=== PATIENT | male | born 1950 | race Caucasian/White ===

== ENCOUNTER 2019-10-12 09:47 | Outpatient (CLI) | payer OTHER, SELFPAY ==
--- NOTE | 2019-10-12 09:53 | CT_ITS ---
WS: [id number] CT CHEST TECHNIQUE: Contrast enhanced CT of the chest with coronal and sagittal reformatted images. CLINICAL INFORMATION: DENSITY COMPARISON: CT chest 10 18,016 DLP: 1077.[address] scans at [facility] use at least one of these dose optimization techniques: automat ed exposure control; mA and/or kV adjustment per patient size (includes targeted exams where dose is matched to clinical indication); or iterative reconstruction. FINDINGS: New subpleural spiculated nodule in the right lower lobe medially abutting the inferior hilum measure s approximately 2.9 x 2.3 cm suspicious for neoplasm. This is new from previous. Additional adjacent Noncalcified nodules measuring 9 mm and 6 mm. Again seen is the noncalcified nodule right upper lobe anteriorly slightly larger today measuring 8.9 mm compared to 6.6 mm previous. Additional hazy groundglass nodule in the right lower lobe laterally measuring 6 mm with additional n oncalcified subpleural nodule measuring 4 mm. Subpleural nodularity in the right lower lobe. Prominent new right hilar and superior mediastinal lymphadenopathy. Multiple enlarged anterior medias tinal, AP window, right greater than left hilar, and subcarinal lymph nodes. Largest lymph nodes ilia ure up to 3.1 cm. Right renal cysts. Low-attenuation lobulated lesion pancreatic tail measuring 2.8 cm appears unchange d since 2016 suspicious for IPMN. This can be followed up with CT abdomen pelvis. Mild pancreatic david socorro dilatation partially visualized. 8mm focal lytic lesion in the T11 vertebral body is new since 2016. Metastatic disease not excluded. Findings can be further evaluated with PET/CT. Schmorl's nodes in the mid thoracic spine. Notified Cecile SOLORZANO at Dr. Steinberg's office 10/12/2019 11:[address]/CT chest w con* [id number] IMPRESSION: 1. 2.3 x 2.9 cm right lower lobe medial subpleural spiculated mass most consis tent with neoplasm. This abuts the inferior hilum and is new since 2016. Recomm end further evaluation with PET/CT and bronchoscopy. This is not easily amenabl e to CT-guided biopsy. 2. Additional adjacent surrounding noncalcified satellite nodules measuring 6 to 9 mm. 3. Extensive anterior mediastinal, right hilar, subcarinal, and AP window lymp hadenopathy measuring up to 3.1 cm most consistent with metastatic disease. 4. Lytic lesion in the T11 vertebral body measuring 8 mm is new since 2016. Me tastatic disease not excluded. This can be further evaluated PET/CT. 5. Noncalcified nodule in the right upper lobe is increased in size since 2016 measuring 8.9 mm compared to 6.6 mm previous. 6. Advanced chronic emphysematous changes are similar. 7. Low-attenuation lobulated lesion involving the pancreatic tail with pancrea tic ductal dilatation measuring 2.8 cm. This was present in [address]. This can be further evaluated with CT abdomen pelvis. Findings most likel y representing IPMN 8. Enlarged periesophageal lymph node at the GE junction measuring 16 mm.
[2019-10-12] MEDS: iohexol 300 mg/mL 100 mL Btl IV (10:08)
== END 2019-10-12 09:48 | disposition home or self-care (01) ==
LOC: RADWPI 09:53
PROVIDERS: Family Provider Internal Medicine; PCP Internal Medicine; Visit Provider Nurse Practitioner
DX: J43.9 Emphysema, unspecified (principal); R91.8 Other nonspecific abnormal finding of lung field; K86.9 Disease of pancreas, unspecified; G95.89 Other specified diseases of spinal cord
CPT/HCPCS: 71260; Q9967

== ENCOUNTER 2019-10-27 08:34 | Day surgery (SDC) | payer MEDICARE, OTHER, SELFPAY ==
[2019-10-19 11:12] VITALS: BMI 30.1
[2019-10-27] VITALS (12 sets, daily range): BP systolic 120–172; BP diastolic 72–97; PULSE 98–117; RESP 13–25; TEMP 36.6–36.7; O2SAT 90–98
--- NOTE | 2019-10-27 09:27 | ANES.PREANE2 ---
Pre-Anesthetic Assessment Pre-Anesthetic Assessment: Height/Weight: Height 1.8 m Weight 97.976 kg Preop Diagnosis: Lung mass Proposed Procedure: Operation Date: 10/27/19 10:00 Proposed Procedures p Ebus/Brocoscopy(Not Applicable) - Laine Ruiz MD Last intake: Intake Last Liquid Date 10/26/19 Last Liquid Time 05:00 Last Solid Date 10/26/19 Last Solid Time 18:00 Social: Packs per day: 1.5 Pack years: 50 Comment: quit ' Exam: Pre-Anes Outpt Exam: alert, oriented x 3, clear to auscultation bilaterally and regular rate & rhythm Airway: Submandibular: WNL Cervical ROM: WNL MP: 2 Dentition: False Pulmonary: Pulmonary: COPD CV/HEM: CV/HEM: HTN Comments: x15 years stress test ' less than 1/2 blocks due to DAVISON for 3 weeks : Comments: BPH Musc/skel: Musc/skel: Lower Back Pain Anesthetic Plan: ASA status: 3 Anesthesia: General PFSH Anesthesia PFSH: Medical History (Updated 10/17/19 @ 15:19 by Laine Ruiz MD) BPH with obstruction/lower urinary tract symptoms (Acute) Chronic obstructive pulmonary disease with (acute) exacerbation (Acute) Essential (primary) hypertension (Acute) Keratoacanthoma (Acute) Lumbar paraspinal muscle spasm (Acute) Panlobular emphysema (Acute) Rheumatoid arthritis, seropositive, multiple sites (Acute) 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 (Acute) Thyroid with heterogeneous echotexture determined by ultrasound (Acute) Surgical History (Updated 10/17/19 @ 15:19 by Laine Ruiz MD) S/P cholecystectomy (Acute) S/P colonoscopy (Acute) 2017- REPEAT IN 10 YEARS S/P endoscopic carpal tunnel release (Acute) S/P eye surgery (Acute) S/P shoulder surgery (Acute) Status post right knee replacement (Acute) Social History Smoking and tobacco status: former smoker Quit status (tobacco): has quit using tobacco Year quit tobacco: 1999 - 2PPD x 30 Years Second hand smoke exposure: No Alcohol intake: former Year of sobriety/quit date alcohol: 1999 Former alcohol use details: HEAVY Household members: spouse Housing: House Marital status: service: Yes Current occupational status: retired Current gender identity: Male Data Anesthesia Cardiac Studies: No Data to Display
[2019-10-27] MEDS: sodium chloride 0.9% 1,000 ML 30 ML IV (09:43)
--- NOTE | 2019-10-27 10:14 | PM.HPUD ---
H&P update H&P Update: DATE OF SURGERY/PROCEDURE: 10/27/19 DATE H&P PERFORMED: 10/17/19 PREOP DIAGNOSIS: Lung mass PLANNED PROCEDURE: Operation Date: 10/27/19 10:00 Proposed Procedures p Ebus/Brocoscopy(Not Applicable) - Laine Ruiz MD Full H&P HPI: HPI: Bronchoscopy and endobronchial ultrasound-guided transbronchial needle aspiration of lymph nodes. Medications/Allergies: Current Medications: Current Medications Generic Name Dose Route Start Last Admin Trade Name Freq PRN Reason Stop Dose Admin Sodium Chloride 1,000 mls @ 30 ml s/hr 10/27/19 09:15 10/27/19 09:43 Sodium Chloride 0.9% IV 10/28/19 09:14 30 mls/hr .Q24H GABBIE Administration Perinent History: Medical/Surgical History: Medical History (Updated 10/17/19 @ 15:19 by Laine Ruiz MD) BPH with obstruction/lower urinary tract symptoms (Acute) Chronic obstructive pulmonary disease with (acute) exacerbation (Acute) Essential (primary) hypertension (Acute) Keratoacanthoma (Acute) Lumbar paraspinal muscle spasm (Acute) Panlobular emphysema (Acute) Rheumatoid arthritis, seropositive, multiple sites (Acute) 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 (Acute) Thyroid with heterogeneous echotexture determined by ultrasound (Acute) Family History: Family History (Updated 09/25/19 @ 09:53 by Grecia Cortez LPN) Other Aneurysm Arthritis CAD (coronary artery disease) Diabetes Hypertension Social History: Social History Smoking and tobacco status: former smoker Quit status (tobacco): has quit using tobacco Year quit tobacco: 1999 - 2PPD x 30 Years Second hand smoke exposure: No Alcohol intake: former Year of sobriety/quit date alcohol: 1999 Former alcohol use details: HEAVY Household members: spouse Housing: House Marital status: service: Yes Current occupational status: retired Current gender identity: Male A&P Assessment and plan (1) Right lower lobe lung mass: The patient most likely has metastatic lung cancer. He is undergoing bronchoscopy evaluation for tissue diagnosis. There is no significant change since he was last seen in the office. Status: Acute Code(s): R91.8 - Other nonspecific abnormal finding of lung field
[2019-10-27] MEDS: lidocaine 1% INJ 20 mL XX (10:35)
--- NOTE | 2019-10-27 11:12 | PM.OP ---
Operative Report Date of procedure: October 27, 2019 Pre-op Diagnosis: Lung mass Brief History: This is a gentleman with right lower lobe lung mass with diffuse mediastinal hilar lymphadenopathy. Patient is coming in for bronchoscopy and endobronchial ultrasound-guided transbronchial needle aspiration of lymph nodes. Suspicion is for primary lung malignancy. Procedure: Name of the procedure: Bronchoscopy with inspection of the airway, bronchoalveolar lavage, endobronchial ultrasound-guided transbronchial needle aspiration of lymph nodes and control of bleeding. Indication: Right lower lobe lung mass with diffuse mediastinal hilar lymphadenopathy Anesthesia: General anesthesia. Local anesthesia: The toribio in the right and left mainstem bronchi were anesthetized with 1% lidocaine, 3 mL. Description of the procedure: The procedure was explained to the patient and the consent was obtained. The patient was brought to the OR. The patient underwent endotracheal intubation for general anesthesia. Following induction of general anesthesia, the bronchoscope was advanced through the ET tube. The lower trachea appeared to be mildly erythematous, no endotracheal lesion was seen. The toribio was splayed. The toribio, the right and left mainstem bronchi are anesthetized with 1% lidocaine. In a systematic manner bilateral bronchial tree was then examined. The bronchoscope was advanced into the left mainstem bronchus. The left upper lobe, lingula and left lower lobe bronchi were examined up to the third subsegmental level and no abnormalities were identified. There is no endobronchial lesion, active bleeding or mucous plug. The bronchoscope was then introduced into the right mainstem bronchus. The right upper lobe, right middle lobe and right lower lobe bronchi were examined up to the third subsegmental level and no abnormalities were identified. There was airway erythema throughout the lung. Bronchoalveolar lavage was performed from the medial segment of the right lower lobe. 60 mL of saline was instilled, fluid return was 10 mL. The fluid was cloudy. The endobronchial ultrasound was introduced through the ET tube. Mediastinal and hilar lymphadenopathy was identified with the ultrasound. The cortex and Medulla could not be differentiated. Transbronchial needle aspiration was performed from 4R, 7 lymph nodes. Samples: 1. Bronchoalveolar lavage specimen was sent for cytology 2. The transbronchial needle aspiration of the aforementioned lymph node groups were sent for cytology. Complications: There was no immediate complications. The patient was extubated and brought to the PACU in stable condition. Follow-up The patient will follow-up with me in 2 weeks time. I will refer him to oncology once I have the diagnosis available.
--- NOTE | 2019-10-27 11:15 | SUR.PHASEI ---
1112 PATIENT TO PACU AT THIS TIME FROM OR. COUGHING NOTED. RR EVEN AND UNLABORED. UNABLE TO PLACE PATIENT ON SIMPLE MASK, PATIENT NOT TOLERATING. PLACED ON 4L NC, SPO2 92%.
[2019-10-27] MEDS: ipratropium 0.5 mg/2.5 mL Neb INHALATION (11:22)
--- NOTE | 2019-10-27 11:30 | SUR.OPER ---
balloon from EBUS scope removed intact
[2019-10-27] MEDS: morphine 4 mg/mL SDV 1 mL 2 MG IVP ×2 (11:32→11:39)
--- NOTE | 2019-10-27 11:56 | SUR.PHASEI ---
1152 PATIENT TO OPS. PATIENT CONTINUE TO COUGH, MUCH IMPROVED. TOLERATING ICE CHIPS WELL. SPO2 95-96% ON 2L NC. PATIENT DENIES PAIN.
--- NOTE | 2019-10-27 11:57 | SUR.PHASEI ---
1152 ANESTHESIA AWARE OF LAST DOSE OF MORPHINE.
== END 2019-10-27 12:45 | disposition home or self-care (01) ==
PROVIDERS: Family Provider Internal Medicine; PCP Internal Medicine; Visit Provider Internal Medicine Critical Care Medicine
PROC: BB4BZZZ Ultrasonography of Pleura (ICD-10-PCS; CPT 31624; principal; 2019-10-27 10:00)
DX: R91.8 Other nonspecific abnormal finding of lung field (principal); J44.9 Chronic obstructive pulmonary disease, unspecified; I10 Essential (primary) hypertension; N40.1 Benign prostatic hyperplasia with lower urinary tract symptoms; N13.8 Other obstructive and reflux uropathy; M05.9 Rheumatoid arthritis with rheumatoid factor, unspecified; Z87.891 Personal history of nicotine dependence; R59.1 Generalized enlarged lymph nodes
CPT/HCPCS: 31624; 12345; 88112; 88305; 88341; 88342; J2001; J2270; J2405; J2704; J2710; J3010; J3490; J7030; J7611; J7644

== ENCOUNTER 2019-11-11 06:42 | Emergency (ER) | payer MEDICARE, OTHER, SELFPAY ==
[2019-11-11 06:50] VITALS: BP 138/87; PULSE 130; RESP 22; TEMP 36.9; O2SAT 92; BMI 29.2
--- NOTE | 2019-11-11 06:54 | ECG_ITS ---
Measurements Intervals [place] Rate: 117 P: 66 [place]: 130 QRS: 78 QRSD: 85 T: 57 QT: 292 QTc: 408 SINUS TACHYCARDIA POSSIBLE LEFT ATRIAL ENLARGEMENT [-0.1mV P WAVE IN V1/V2] Compared to ECG 09/21/2018 12:52:44 Sinus rhythm no longer present Electronically Signed On 11-11-2019 14:08:40 NUT GRADER by Julissa Somers M.D. [email or web address]
--- NOTE | 2019-11-11 06:54 | XR_ITS ---
WS: [id number] XR chest 1V portable [id number] REASON FOR EXAM: sob FINDINGS: Normal heart size again noted. The right hilum is full and there is infiltrates low-grade in both lung castillo. There is chronic emphysematous changes noted. The overall appearance the chest shows considerable change since August 18, 2019. XR/XR chest 1V portable [id number] IMPRESSION: Inflammatory changes both lung castillo suggesting early pneumonias. There is fullness seen now in the right hilum not observed on previous exam wit h congestion.
--- NOTE | 2019-11-11 07:03 | ED_ITS ---
Entered by Jed Maher, acting as scribe for HPI - SOB/Dyspnea General: Chief Complaint: Shortness of Breath/Dyspnea Stated Complaint: SOB Time Seen by Provider: 11/11/19 06:46 History of Present Illness: HPI Narrative: 69 yo male presents with shortness of breath. Pt states that he has had a productive cough for about 2 days, pt states that his sputum is white. Pt states that he was recently diagnosed with cancer. Pt denies fever. MD elicited complaint: shortness of breath Onset (ago): day(s) (2) Timing: constant Severity: moderate Exacerbating factors: movement Relieving factors: nothing Associated symptoms: Reports cough; Deny abdominal pain, chest pain, fever(s), nausea or vomiting Review of Systems Const: Denies: fever Eyes: Denies: blurry vision or eye discomfort ENMT: Denies: throat pain or dental pain Card: Denies: chest pain Resp: Reports: shortness of breath and productive cough GI: Denies: abdominal pain, nausea, vomiting or diarrhea : Denies: painful urination Musc: Denies: neck pain or back pain Skin/Breast: Denies: rash Neuro: Denies: headache Psych: Denies: depression Reginaldo/Lymph: Denies: easy bruising All/Imm: Denies: hives PFSH ED PFSH: Medical History BPH with obstruction/lower urinary tract symptoms Chronic obstructive pulmonary disease with (acute) exacerbation Essential (primary) hypertension Keratoacanthoma Lumbar paraspinal muscle spasm Panlobular emphysema Rheumatoid arthritis, seropositive, 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 Thyroid with heterogeneous echotexture determined by ultrasound Surgical History S/P cholecystectomy S/P colonoscopy 2017- REPEAT IN 10 YEARS S/P endoscopic carpal tunnel release S/P eye surgery S/P shoulder surgery Status post right knee replacement Social History Smoking and tobacco status: former smoker Quit status (tobacco): has quit using tobacco Year quit tobacco: 1999 - 2PPD x 30 Years Second hand smoke exposure: No Alcohol intake: former Year of sobriety/quit date alcohol: 1999 Former alcohol use details: HEAVY Household members: spouse Housing: House Marital status: service: Yes Current occupational status: retired History of recent travel: No Current gender identity: Male Physical Exam Const: COMMON NORMALS: no apparent distress, oriented x3 and healthy appearing HENMT: COMMON NORMALS: normocephalic and head/scalp atraumatic HEAD & SCALP: normocephalic and atraumatic Eye: COMMON NORMALS: PERRL and EOMs intact bilaterally PUPIL: Yes PERRL Neck/C-Spine: COMMON NORMALS: full ROM and supple Chest: COMMONS NORMALS: inspection of chest normal and palpation of chest normal Resp: COMMON NORMALS: normal respiratory effort, no retractions, no use of accessory muscles and clear to auscultation bilaterally AUSCULTATION: clear to auscultation bilaterally Cardio: COMMON NORMALS: regular rate, regular rhythm and no murmurs RATE: regular rate RHYTHM: regular rhythm GI: COMMON NORMALS: normal to inspection, nondistended, normoactive bowel sounds, soft to palpation, non-tender and no masses PALPATION: Yes soft Extremity: COMMON NORMALS: normal to inspection and full ROM Neuro: COMMON NORMALS: oriented x3, moves all extremities and no focal motor deficits Psych: COMMON NORMALS: mental status grossly normal, thought process normal and cooperative THOUGHT PROCESS: normal thought process Skin: COMMON NORMALS: no rashes or lesions noted and no wounds GENERAL SKIN EXAM: no rashes or lesions noted Course Vital Signs: Vital signs: Vital Signs Temperature 98.4 F 11/11/19 06:50 Pulse Rate 114 H 11/11/19 08:55 Respiratory Rate 22 H 11/11/19 08:55 Blood Pressure 98/58 11/11/19 08:55 Pulse Oximetry 88 L 11/11/19 08:55 MDM - SOB/Dyspnea MDM Narrative: Medical decision making narrative: Patient presents here with shortness of breath and pneumonia. I strongly recommended admission which he refused. Patient states he does not like hospitals and does not want to stay. Informed him he is requiring oxygen here and he could get much worse at home. Patient has medical decision-making capacity and understands the risks and signed out AMA. He has an appointment with Dr. Shannon and is to follow-up then. We will place him on doxycycline and if he changes his mind or gets worse he is to return. Lab Data: Labs: Lab Results 11/11/19 11/11/19 11/11/19 Range/Units 07:10 07:10 07:20 WBC 13.5 H (4.0-10.0) 10^3/ uL RBC 5.90 H (4.1-5.3) 10^6/u L Hgb 16.7 H (11.7-16.6) g/dL Hct 51.6 (42.0-52.0) % MCV 87.5 (80-94) fL MCH 28.3 (28.0-34.0) pg MCHC 32.4 (30.0-36.0) g/dL RDW 12.9 (12.1-15.1) % Plt Count 207 (130-400) 10^3/c mm MPV 9.6 (7.4-10.4) fL Neut % (Auto) 83.1 % Lymph % (Auto) 4.5 % [place] % (Auto) 10.7 % Eos % (Auto) 1.1 % Baso % (Auto) 0.2 % Neut # (Auto) 11.2 H (1.8-7.7) 10^3/u L Lymph # (Auto) 0.6 L (0.8-4.8) 10^3/u L [place] # (Auto) 1.4 H (0.2-0.9) 10^3/u L Eos # (Auto) 0.2 (0.0-0.8) 10^3/u L Baso # (Auto) 0.0 (0.0-0.1) 10^3/u L Nucleated RBC % (a uto) 0 % Nucleated RBCs # 0.0 /100WBC Sodium 133 L (136-145) mmol/L Potassium 3.9 (3.5-5.1) mmol/L Chloride 93 L (98-107) mmol/L Carbon Dioxide 25 (22-29) mmol/L Anion Gap 18.9 (5-19) BUN 19 (8-23) mg/dL Creatinine 1.3 H (0.7-1.2) mg/dL Glucose 223 H (65-115) mg/dL Calcium 11.4 H (8.5-10.5) mg/dL Total Bilirubin 0.8 (0.15-1.2) mg/dL AST 24 (0-40) U/L ALT 10 (0-41) U/L Alkaline Phosphata se 86 (40-130) IU/L NT-Pro-B Natriuret Pep 119 (0-125) pg/mL Total Protein 8.3 (6.6-8.7) g/dL Albumin 3.1 L (3.5-5.2) g/dL Globulin 5.2 H (1.3-4.6) g/dL Influenza Type A A g Negative (Negative) POC Influenza B Ag Negative (Negative) Imaging Data^: CXR: Radiologist's impression: Date of Service: 11/11/19 Procedure(s): XR chest 1V portable [id number] Accession Number(s): [id number] Report Number: [id number] WS: [id number] XR chest 1V portable [id number] REASON FOR EXAM: sob FINDINGS: Normal heart size again noted. The right hilum is full and there is infiltrates low-grade in both lung castillo. There is chronic emphysematous changes noted. The overall appearance the chest shows considerable change since August 18, 2019. XR/XR chest 1V portable [id number] IMPRESSION: Inflammatory changes both lung castillo suggesting early pneumonias. There is fullness seen now in the right hilum not observed on previous exam with congestion. EKG Data^: EKG 1: Attestation: I personally reviewed and interpreted this EKG as follows: EKG Interpretation Date: 11/11/19 EKG interpretation time: 07:28 Interpretation: sinus tach hr [address] or t wave abnormalities Discharge Plan Discharge Patient Disposition: Home, Self-Care Clinical Impression: Squamous cell lung cancer Qualifiers: Laterality: unspecified laterality Qualified Code(s): C34.90 - Malignant neoplasm of unspecified part of unspecified bronchus or lung Community acquired pneumonia Qualifiers: Laterality: unspecified laterality Qualified Code(s): J18.9 - Pneumonia, unspecified organism Condition: Stable Prescriptions: New doxycycline hyclate 100 mg tablet 100 mg PO BID 10 Days Qty: 20 RF: 0 No Action tamsulosin 0.4 mg capsule 0.4 mg PO QDAY RF: 0 finasteride 5 mg tablet 5 mg PO QDAY RF: 0 lisinopril 20 mg tablet 20 mg PO QDAY Qty: 90 RF: 3 hydrochlorothiazide 25 mg tablet 25 mg PO QAM RF: 0 Symbicort 160-4.5 mcg/actuation HFA aerosol inhaler 2 puff INHALATION BID RF: 0 cyclobenzaprine 10 mg tablet 10 mg PO TID RF: 0 hydrocodone-guaifenesin 2.5-200 mg/5 mL solution 5 - 10 ml PO Q6H PRN (Reason: cough) 30 Days Qty: 473 RF: 0 prednisone 20 mg tablet 20 mg PO DAILY PRN (Reason: shortness of breath) Qty: 30 RF: 0 Eliquis 5 mg Tablet 5 mg PO BID RF: 0 Flonase Allergy Relief 50 mcg/actuation [place],Suspension 1 spray INTRANASAL DAILY RF: 0 Spiriva Respimat 2.5 mcg/actuation Mist 2 inh INHALATION QAM RF: 0 losartan 100 mg Tablet 50 mg PO DAILY RF: 0 Discharge Orders: Discharge Order (Routine); Ordered 11/11/19 Ordered By: Kristen Adler Referrals: Jerome Steinberg MD [Primary Care Provider] - Discharge Diet: Advance as tolerated Discharge Activity: Resume usual activity Patient Instructions: Bacterial Pneumonia (ED) Stand Alone Forms: Against Medical Advice Discharge Date/Time: 11/11/19 08:57 Coding Level of Care Code ED Integrated Circuit Fabricator for Chg Fwd Exam Comprehensive The documentation recorded by the Gunnar johnson Kialy, accurately reflects the service I personally performed and the decisions made by Nayely blankenship Korby, MD Nov 11, 2019 06:42
[2019-11-11 07:13] VITALS: O2SAT 85
[2019-11-11 07:18] LABS: Basophils % 0.2 %; Eosinophils # 0.2 10^3/uL (0.0-0.8); Eosinophils % 1.1 %; Hematocrit 51.6 % (42.0-52.0); Hemoglobin 16.7 g/dL (11.7-16.6); Lymphocytes # 0.6 10^3/uL (0.8-4.8); Lymphocytes % 4.5 %; Mean Corpuscular HGB Conc 32.4 g/dL (30.0-36.0); Mean Corpuscular Hemoglobin 28.3 pg (28.0-34.0); Mean Corpuscular Volume 87.5 fL (80-94); Mean Platelet Volume 9.6 fL (7.4-10.4); Monocytes # 1.4 10^3/uL (0.2-0.9); Monocytes % 10.7 %; Neutrophils # 11.2 10^3/uL (1.8-7.7); Neutrophils % 83.1 %; Nucleated Red Blood Cells % 0 %; Platelet Count 207 10^3/cmm (130-400); Red Cell Distribution Width 12.9 % (12.1-15.1); White Blood Count 13.5 10^3/uL (4.0-10.0)
[2019-11-11] MEDS: sodium chloride 0.9% 1,000 ML 999 ML IV (07:18)
[2019-11-11] MEDS: ipratropium-albuterol 3 mL Neb INHALATION (07:24)
[2019-11-11 07:25] VITALS: PULSE 119; RESP 16; O2SAT 91
[2019-11-11 07:34] VITALS: PULSE 117
[2019-11-11 07:46] LABS: Alanine Aminotransferase 10 U/L (0-41); Albumin Level 3.1 g/dL (3.5-5.2); Alkaline Phosphatase 86 IU/L (40-130); Anion Gap 18.9 (5-19); Blood Urea Nitrogen 19 mg/dL (8-23); Calcium 11.4 mg/dL (8.5-10.5); Carbon Dioxide 25 mmol/L (22-29); Chloride 93 mmol/L (98-107); Globulin 5.2 g/dL (1.3-4.6); Glucose 223 mg/dL (65-115); NT Pro B Type Natriuretic Pept 119 pg/mL (0-125); Potassium 3.9 mmol/L (3.5-5.1); Sodium 133 mmol/L (136-145); Total Bilirubin 0.8 mg/dL (0.15-1.2); Total Protein 8.3 g/dL (6.6-8.7)
[2019-11-11 07:53] VITALS: PULSE 113; RESP 18; O2SAT 92
[2019-11-11] MEDS: lidocaine 4% PF 5 mL INJ INHALATION (07:53)
[2019-11-11 08:02] LABS: Influenza A by IFA Negative (Negative); Influenza B by IFA Negative (Negative)
[2019-11-11 08:34] LABS: Aspartate Amino Transferase 24 U/L (0-40)
[2019-11-11 08:55] VITALS: BP 98/58; PULSE 114; RESP 22; O2SAT 88
== END 2019-11-11 08:57 | disposition home or self-care (01) ==
PROVIDERS: Emergency Provider Emergency Medicine; Family Provider Internal Medicine; PCP Internal Medicine
DX: J18.9 Pneumonia, unspecified organism (principal); C34.90 Malignant neoplasm of unspecified part of unspecified bronchus or lung; I10 Essential (primary) hypertension; J43.1 Panlobular emphysema; Z87.891 Personal history of nicotine dependence; Z53.29 Procedure and treatment not carried out because of patient's decision for other reasons
CPT/HCPCS: 71045; 80053; 83880; 85025; 87804; 93005; 94640; 96360; 99282; 99283; 99284; J2001; J7030

== ENCOUNTER 2019-11-14 05:28 | Emergency (ER) | payer OTHER, MEDICARE, SELFPAY ==
[2019-11-14] VITALS (24 sets, daily range): BP systolic 81–133; BP diastolic 56–72; PULSE 83–132; RESP 5–36; TEMP 37; O2SAT 86–92; BMI 29.2
--- NOTE | 2019-11-14 05:52 | XR_ITS ---
WS: [id number] Portable AP upright chest, 11/14/2019 Clinical Data: cough Comparison: Portable chest, 11/11/2019 CT scan, 10/12/2019, PET scan, 10/21/2019. Findings: There is fullness of both cris. The right lower lobe nodule is present but difficult to dis cern from the right hilum. Bilateral interstitial changes seen throughout both lungs. No effusions ar e seen. The pulmonary vascularity is not increased. No pneumonia or pneumothorax is seen. Monitor aicha ds on the chest wall. XR/XR chest 1V portable [id number] Impression: 1. No change from prior chest x-ray. 2. Bilateral hilar fullness and right lower lobe mass unchanged. 3. Bilateral gestational change.
--- NOTE | 2019-11-14 05:53 | ECG_ITS ---
Measurements Intervals [place] Rate: 148 P: NM: 0 QRS: 62 QRSD: 94 T: 48 QT: 251 QTc: 394 ATRIAL FLUTTER/TACHYCARDIA WITH RAPID VENTRICULAR RESPONSE MODERATE ST DEPRESSION [0.05+ mV ST DEPRESSION] Compared to ECG 11/11/2019 07:28:37 ST (T wave) deviation now present Sinus tachycardia no longer present Electronically Signed On 11-14-2019 19:41:52 EDGING MACHINE OPERATOR by Radha Duarte M.D. [email or web address]
--- NOTE | 2019-11-14 05:59 | ED_ITS ---
HPI - SOB/Dyspnea General: Chief Complaint: Shortness of Breath/Dyspnea Stated Complaint: sob Time Seen by Provider: 11/14/19 05:47 History of Present Illness: HPI Narrative: Giuseppe is a 69-year-old male who comes in with his respiratory distress. He states he just cannot get his breath. This started 5 days ago with a cough but got worse over the past few days. Of note the patient was seen here Wednesday and offered admission but declined and chose to go home. He stated initially he got better but now he is gotten worse. Associated symptoms: Deny abdominal pain, chest pain, diaphoresis, dizziness, extremity pain, fever(s), hemoptysis, nausea, orthopnea, palpitations, polydipsia, syncope or vomiting Review of Systems General: Reports: other (negative unless marked) Const: Denies: fever, chills, body aches, fatigue, malaise or diaphoresis Eyes: Denies: change in vision or blurry vision ENMT: Denies: throat pain, painful swallowing, hoarseness, ear pain, ear discharge, Change in hearing or nasal discharge Card: Denies: chest pain, palpitations, irregular heart rhythm, syncope, pre- syncope, shortness of breath on exertion or shortness of breath when lying down Resp: Reports: other (See HPI); Denies: coughing up blood GI: Denies: abdominal pain, nausea, vomiting, vomiting blood, coffee grounds in vomit, diarrhea, constipation, cramping, blood in stool or black tarry stool : Denies: flank pain, difficulty urinating, painful urination, urinary frequency, urinary urgency, decreased urine ouput, urinary incontinence or blood in urine Musc: Denies: neck pain, back pain, extremity pain, extremity swelling, joint pain, joint swelling, joint warmth or joint stiffness Skin/Breast: Denies: rash, skin tenderness or yellow skin Neuro: Denies: headache, numbness in extremities, weakness in extremities, changes in sensation, lack of coordination, difficulty walking, dizziness, vertigo or confusion Endo: Denies: excessive thirst, tired all the time, cold intolerance, excessive sweating, flushing or hot flashes Reginaldo/Lymph: Denies: easy bruising, easy bleeding, petechiae or enlarged lymph nodes All/Imm: Denies: hives, throat swelling, tongue swelling, facial swelling or acute wheezing [facility] ED PFSH: Medical History BPH with obstruction/lower urinary tract symptoms Chronic obstructive pulmonary disease with (acute) exacerbation Essential (primary) hypertension Keratoacanthoma Lumbar paraspinal muscle spasm Panlobular emphysema Rheumatoid arthritis, seropositive, 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 Thyroid with heterogeneous echotexture determined by ultrasound Surgical History S/P cholecystectomy S/P colonoscopy 2017- REPEAT IN 10 YEARS S/P endoscopic carpal tunnel release S/P eye surgery S/P shoulder surgery Status post right knee replacement Family History Other Aneurysm Arthritis CAD (coronary artery disease) Diabetes Hypertension Social History Smoking and tobacco status: former smoker Quit status (tobacco): has quit using tobacco Year quit tobacco: 1999 - 2PPD x 30 Years Second hand smoke exposure: No Alcohol intake: former Year of sobriety/quit date alcohol: 1999 Former alcohol use details: HEAVY Household members: spouse Housing: House Marital status: service: Yes Current occupational status: retired History of recent travel: No Current gender identity: Male Physical Exam Const: COMMON NORMALS: no apparent distress, oriented x3, no limitations, healthy appearing and well nourished EXAM LIMITATIONS: no altered mental status GENERAL APPEARANCE: cooperative, well kempt and well developed ORIENTATION/CONSCIOUSNESS: Yes awake HENMT: COMMON NORMALS: normocephalic, head/scalp atraumatic, hearing grossly normal bilaterally, external ears normal, EAC's normal, external nose normal and moist oral mucous membranes HEAD & SCALP: normal to inspection, normocephalic and atraumatic FACE & SINUS: normal facial exam and face symmetric NOSE: external nose normal and nares normal EXTERNAL EAR: Yes external ears normal EXTERNAL AUDITORY CANAL: EAC's normal MOUTH: oral and palatal mucosa normal and tongue normal Eye: COMMON NORMALS: PERRL, EOMs intact bilaterally, conjunctivae normal and no scleral icterus GENERAL EYE: normal appearance of both eyes and normal light reflex CONJUNCTIVA: Yes conjunctivae normal SCLERA: sclerae normal CORNEA: Yes corneas normal PUPIL: Yes PERRL DIRECT OPHTHALMOSCOPY: Yes normal light reflex Neck/C-Spine: COMMON NORMALS: full ROM, no lymphadenopathy, supple, no meningeal signs and no JVD GENERAL: Yes normal visual inspection and Yes trachea midline CERVICAL SPINE: Yes cervical ROM normal Chest: COMMONS NORMALS: inspection of chest normal and palpation of chest normal Resp: COMMON NORMALS: normal respiratory effort, no retractions, no use of accessory muscles and clear to auscultation bilaterally EFFORT & INSPECTION: Yes able to speak in complete sentences AUSCULTATION: clear to auscultation bilaterally Cardio: COMMON NORMALS: no JVD, S1 normal heart sound, S2 normal heart sound, no gallops, no clicks, no murmurs and no rub JUGULAR VENOUS DISTENTION: no JVD RATE: tachycardic RHYTHM: abnormal rhythm irregularly irregular HEART SOUNDS: S1 normal and S2 normal GI: COMMON NORMALS: soft to palpation, non-tender, no hepatosplenomegaly and no masses INSPECTION: Yes normal to inspection PALPATION: Yes soft and Yes no hepatosplenomegaly : COMMON NORMALS: Yes no CVA tenderness BLADDER/KIDNEY EXAM: Yes no CVA tenderness Back/Pelvis: COMMON NORMALS: no CVA tenderness, thoracic and lumbar spine normal to inspection, no thoracic nor lumbar tenderness and thoraco-lumbar ROM normal Extremity: COMMON NORMALS: normal to inspection, full ROM, normal capillary refill, no joint enlargement, no clubbing, cyanosis or edema and no calf tenderness Neuro: COMMON NORMALS: oriented x3, CN's II-XII intact bilaterally, moves all extremities, no focal motor deficits and no sensory deficits noted MENINGEAL SIGNS: Yes no meningeal signs Psych: COMMON NORMALS: mental status grossly normal, thought process normal, cooperative, affect normal, speech normal and activity/motor behavior normal APPEARANCE: Yes well kempt SPEECH: Yes normal speech THOUGHT PROCESS: normal thought process Skin: COMMON NORMALS: no rashes or lesions noted, skin turgor normal, no jaundice, no petechiae and no mottling GENERAL SKIN EXAM: no rashes or lesions noted and turgor normal Course Vital Signs: Vital signs: Vital Signs Temperature 98.6 F 11/14/19 05:41 Pulse Rate 108 H 11/14/19 06:20 Respiratory Rate 30 H 11/14/19 06:20 Blood Pressure 91/56 11/14/19 06:20 Pulse Oximetry 91 11/14/19 05:41 MDM - SOB/Dyspnea Lab Data: Labs: Lab Results 11/14/19 11/14/19 11/14/19 Range/Units 05:50 05:50 05:50 WBC 10.4 H (4.0-10.0) 10^3/ uL RBC 5.82 H (4.1-5.3) 10^6/u L Hgb 16.4 (11.7-16.6) g/dL Hct 50.8 (42.0-52.0) % MCV 87.3 (80-94) fL MCH 28.2 (28.0-34.0) pg MCHC 32.3 (30.0-36.0) g/dL RDW 13.0 (12.1-15.1) % Plt Count 184 (130-400) 10^3/c mm MPV 10.1 (7.4-10.4) fL Neut % (Auto) 83.9 % Lymph % (Auto) 3.8 % Armstrong % (Auto) 10.4 % Eos % (Auto) 1.3 % Baso % (Auto) 0.2 % Neut # (Auto) 8.7 H (1.8-7.7) 10^3/u L Lymph # (Auto) 0.4 L (0.8-4.8) 10^3/u L Armstrong # (Auto) 1.1 H (0.2-0.9) 10^3/u L Eos # (Auto) 0.1 (0.0-0.8) 10^3/u L Baso # (Auto) 0.0 (0.0-0.1) 10^3/u L Nucleated RBC % (a uto) 0 % Nucleated RBCs # 0.0 /100WBC PT 14.90 H (10.5-13.3) SECO NDS INR 1.17 (0.8-1.2) Specimen Type Sample Site ABG pH (7.35-7.45) ABG pCO2 (35-45) mmHg ABG pO2 (80.0-100.0) mmH g ABG HCO3 (22-26) mmol/L ABG Base Excess (-2.0-2.0) mmol/ L Clifford Test Hematocrit (42-52) % O2 Delivery Device O2 Liters/Min % Wood Bucker ID Sodium 138 (136-145) mmol/L Potassium 4.2 (3.5-5.1) mmol/L Chloride 100 (98-107) mmol/L Carbon Dioxide 25 (22-29) mmol/L Anion Gap 17.2 (5-19) BUN 16 (8-23) mg/dL Creatinine 1.3 H (0.7-1.2) mg/dL Glucose 184 H (65-115) mg/dL Calcium 11.7 H (8.5-10.5) mg/dL Magnesium 1.4 L (1.7-2.3) mg/dL Total Bilirubin 0.7 (0.15-1.2) mg/dL AST 23 (0-40) U/L ALT 9 (0-41) U/L Alkaline Phosphata se 84 (40-130) IU/L Total Protein 7.4 (6.6-8.7) g/dL Albumin 3.1 L (3.5-5.2) g/dL Globulin 4.3 (1.3-4.6) g/dL 11/14/ Range/Units 06:10 WBC (4.0-10.0) 10^3/ uL RBC (4.1-5.3) 10^6/u L Hgb (11.7-16.6) g/dL Hct (42.0-52.0) % MCV (80-94) fL MCH (28.0-34.0) pg MCHC (30.0-36.0) g/dL RDW (12.1-15.1) % Plt Count (130-400) 10^3/c mm MPV (7.4-10.4) fL Neut % (Auto) % Lymph % (Auto) % Armstrong % (Auto) % Eos % (Auto) % Baso % (Auto) % Neut # (Auto) (1.8-7.7) 10^3/u L Lymph # (Auto) (0.8-4.8) 10^3/u L Armstrong # (Auto) (0.2-0.9) 10^3/u L Eos # (Auto) (0.0-0.8) 10^3/u L Baso # (Auto) (0.0-0.1) 10^3/u L Nucleated RBC % (a uto) % Nucleated RBCs # /100WBC PT (10.5-13.3) SECO NDS INR (0.8-1.2) Specimen Type Arterial Sample Site Radial, left ABG pH 7.48 H (7.35-7.45) ABG pCO2 30.9 L (35-45) mmHg ABG pO2 57.4 L (80.0-100.0) mmH g ABG HCO3 22.8 (22-26) mmol/L ABG Base Excess 0.3 (-2.0-2.0) mmol/ L Clifford Test Pos Hematocrit 50.6 (42-52) % O2 Delivery Device Nc O2 Liters/Min 4.0 % Wood Bucker ID ellpe Sodium (136-145) mmol/L Potassium (3.5-5.1) mmol/L Chloride (98-107) mmol/L Carbon Dioxide (22-29) mmol/L Anion Gap (5-19) BUN (8-23) mg/dL Creatinine (0.7-1.2) mg/dL Glucose (65-115) mg/dL Calcium (8.5-10.5) mg/dL Magnesium (1.7-2.3) mg/dL Total Bilirubin (0.15-1.2) mg/dL AST (0-40) U/L ALT (0-41) U/L Alkaline Phosphata se (40-130) IU/L Total Protein (6.6-8.7) g/dL Albumin (3.5-5.2) g/dL Globulin (1.3-4.6) g/dL EKG Data^: EKG 1: Attestation: I personally reviewed and interpreted this EKG as follows: EKG Interpretation Date: 11/14/19 EKG interpretation time: 06:02 Interpretation: Atrial fibrillation with a heart rate of 148, no other acute ST- T wave changes. Discharge Plan Discharge Prescriptions: No Action tamsulosin 0.4 mg capsule 0.4 mg PO QDAY RF: 0 finasteride 5 mg tablet 5 mg PO QDAY RF: 0 lisinopril 20 mg tablet 20 mg PO QDAY Qty: 90 RF: 3 hydrochlorothiazide 25 mg tablet 25 mg PO QAM RF: 0 Symbicort 160-4.5 mcg/actuation HFA aerosol inhaler 2 puff INHALATION BID RF: 0 cyclobenzaprine 10 mg tablet 10 mg PO TID RF: 0 hydrocodone-guaifenesin 2.5-200 mg/5 mL solution 5 - 10 ml PO Q6H PRN (Reason: cough) 30 Days Qty: 473 RF: 0 prednisone 20 mg tablet 20 mg PO DAILY PRN (Reason: shortness of breath) Qty: 30 RF: 0 Eliquis 5 mg Tablet 5 mg PO BID RF: 0 Flonase Allergy Relief 50 mcg/actuation [place],Suspension 1 spray INTRANASAL DAILY RF: 0 Spiriva Respimat 2.5 mcg/actuation Mist 2 inh INHALATION QAM RF: 0 losartan 100 mg Tablet 50 mg PO DAILY RF: 0 doxycycline hyclate 100 mg tablet 100 mg PO BID 10 Days Qty: 20 RF: 0 Coding Level of Care Code ED Manager Financial Reporting for Aliciag Juanpablo
[2019-11-14 06:13] LABS: Basophils % 0.2 %; Eosinophils # 0.1 10^3/uL (0.0-0.8); Eosinophils % 1.3 %; Hematocrit 50.8 % (42.0-52.0); Hemoglobin 16.4 g/dL (11.7-16.6); Lymphocytes # 0.4 10^3/uL (0.8-4.8); Lymphocytes % 3.8 %; Mean Corpuscular HGB Conc 32.3 g/dL (30.0-36.0); Mean Corpuscular Hemoglobin 28.2 pg (28.0-34.0); Mean Corpuscular Volume 87.3 fL (80-94); Mean Platelet Volume 10.1 fL (7.4-10.4); Monocytes # 1.1 10^3/uL (0.2-0.9); Monocytes % 10.4 %; Neutrophils # 8.7 10^3/uL (1.8-7.7); Neutrophils % 83.9 %; Nucleated Red Blood Cells % 0 %; Platelet Count 184 10^3/cmm (130-400); Red Blood Count 5.82 10^6/uL (4.1-5.3); White Blood Count 10.4 10^3/uL (4.0-10.0)
[2019-11-14] MEDS: sodium chloride 0.9% 1,000 ML 999 ML IV (06:14)
[2019-11-14 06:21] LABS: ABG PCO2 30.9 mmHg (35-45); ABG PH Result 7.48 (7.35-7.45); Arterial Blood Gas Hematocrit 50.6 % (42-52); Base Excess ABG 0.3 mmol/L (-2.0-2.0); Blood Gas Allen Test Pos; Blood Gas Sample Site Radial, left; Blood Gas Sample Type Arterial; HCO3 ABG 22.8 mmol/L (22-26); Oxygen Device NC; PO2 ABG 57.4 mmHg (80.0-100.0)
[2019-11-14 06:29] LABS: Alanine Aminotransferase 9 U/L (0-41); Albumin Level 3.1 g/dL (3.5-5.2); Alkaline Phosphatase 84 IU/L (40-130); Anion Gap 17.2 (5-19); Aspartate Amino Transferase 23 U/L (0-40); Blood Urea Nitrogen 16 mg/dL (8-23); Calcium 11.7 mg/dL (8.5-10.5); Carbon Dioxide 25 mmol/L (22-29); Chloride 100 mmol/L (98-107); Globulin 4.3 g/dL (1.3-4.6); Glucose 184 mg/dL (65-115); Magnesium 1.4 mg/dL (1.7-2.3); Potassium 4.2 mmol/L (3.5-5.1); Sodium 138 mmol/L (136-145); Total Bilirubin 0.7 mg/dL (0.15-1.2); Total Protein 7.4 g/dL (6.6-8.7)
[2019-11-14 06:31] LABS: INR 1.17 (0.8-1.2)
[2019-11-14 06:32] LABS: Troponin(5th) Baseline 18 ng/mL (0-15)
[2019-11-14 06:36] LABS: Influenza A by IFA Negative (Negative); Influenza B by IFA Negative (Negative)
[2019-11-14 06:57] LABS: Lactic Sepsis W/Reflex 2.3 mmol/L (0.5-2.2)
[2019-11-14] MEDS: cyclobenzaprine 10 mg Tablet PO (07:35)
--- NOTE | 2019-11-14 07:53 | ECG_ITS ---
Measurements Intervals Jackson Rate: 87 P: TN: 0 QRS: 66 QRSD: 93 T: 21 QT: 338 QTc: 407 ATRIAL FLUTTER/TACHYCARDIA ABNORMAL RHYTHM ECG Compared to ECG 11/11/2019 07:28:37 Sinus tachycardia no longer present Electronically Signed On 11-14-2019 19:56:28 SENIOR BILLING CONSULTANT by Radha Duarte M.D. [email or web address]
[2019-11-14 08:18] LABS: Troponin 5 2HR 20.01 ng/mL (0-15); Troponin 5 2HR Delta 2.01 ABS# (0-10)
[2019-11-14 08:23] LABS: Reflex Lactate Order REFLEX LACTIC ORDERD
--- NOTE | 2019-11-14 08:31 | XR_ITS ---
WS: [id number] Left shoulder, 3 views, 11/14/2019 Clinical Data: injury Comparison: None. Findings: No fractures or dislocations are seen. The AC joint shows osteoarthritis with a small calcification a t the superior aspect of the joint space. There are cysts in the greater tuberosity. There is osteoar thritic change of the left shoulder joint with spurring of the inferior glenoid in a small spur of th e adjacent lesser tuberosity.. The adjacent left clavicle, left scapula and ribs are normal. The soft tissues are unremarkable. XR/XR shoulder LT min 2V* [id number] Impression: 1. Negative for fracture or dislocation. 2. 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
--- NOTE | 2019-11-14 08:53 | PC.NURSE ---
portable xray at bedside
[2019-11-14 10:20] LABS: Add Urine Culture? No; Bilirubin Urine Neg (NEGATIVE); Blood Urine Neg (Negative); Glucose Urine UA Norm (Normal); Ketones Urine 1+ (Negative); Leukocyte Esterase Urine Negative (Negative); Nitrate Urine Negative (Negative); Protein Urine Neg (Negative); Urine Appearance Clear (CLEAR); Urine Color Yellow (Yellow); Urobilinogen Urine 1 mg/dL (Negative)
--- NOTE | 2019-11-14 10:20 | PC.NURSE ---
pt converted to SR. ED provider notified.
[2019-11-14 11:16] LABS: Lactic Acid level (Lactate) 1.9 mmol/L (0.5-2.2)
--- NOTE | 2019-11-14 12:20 | PC.NURSE ---
[facility] HERE FOR PT TRANSFER TO [facility], REPORT GIVEN TO DAYANARA He PT A&O, NAD NOTED. CARDIZEM GTT CONT ORDERED.
== END 2019-11-14 12:22 | disposition other institution (70) ==
PROVIDERS: Emergency Medicine; Emergency Provider Family Medicine; Family Provider Internal Medicine; PCP Internal Medicine
DX: R06.02 Shortness of breath (principal); R05 Cough; J43.1 Panlobular emphysema; I10 Essential (primary) hypertension; Z79.51 Long term (current) use of inhaled steroids; Z79.52 Long term (current) use of systemic steroids; Z79.01 Long term (current) use of anticoagulants; Z87.891 Personal history of nicotine dependence
CPT/HCPCS: 36415; 36600; 71045; 73030; 80053; 81001; 82803; 83605; 83735; 84484; 85025; 85610; 87040; 87070; 87804; 93005; 96360; 96361; 96365; 96366; 96375; 99284; 99285; A9270; J3490; J7030

== ENCOUNTER 2019-11-18 04:02 | Inpatient (IN) | payer OTHER, MEDICARE, SELFPAY ==
[2019-11-18] VITALS (50 sets, daily range): BP systolic 83–143; BP diastolic 47–93; PULSE 73–147; RESP 14–28; TEMP 36.3–36.8; O2SAT 89–96; BMI 29.4
--- NOTE | 2019-11-18 04:15 | XRR_ITS ---
PROCEDURE INFORMATION: Exam: XR Chest, 1 View Exam date and time: 11/18/2019 5:14 AM Age: 69 years old Clinical indication: Shortness of breath; Chest pain; Type not specified; Patient HX: Recent dx of stage 4 lung, spine and liver CA; Additional info: Cough TECHNIQUE: Imaging protocol: XR of the chest Views: 1 view. COMPARISON: CR XR chest 1V portable [id number] 11/14/2019 5:52 AM FINDINGS: Lungs: There is ill-defined reticular opacity in the lower lungs bilaterally. No focal consolidation. The upper lungs are hyperlucent suggesting emphysema. Pleural space: There is no pleural effusion or pneumothorax. Heart/Mediastinum: There is bilateral hilar enlargement. The cardiac silhouette is normal in size. Bones/joints: Bones are unremarkable. XR/XR chest 1V portable [id number] IMPRESSION: 1. Nonspecific persistent bilateral mid to lower lung opacities. Differential diagnosis includes interstitial edema, infection, lymphangitic carcinomatosis. 2. Stable bilateral hilar enlargement.
--- NOTE | 2019-11-18 04:15 | ED_ITS ---
Entered by Amber Subramanian, acting as scribe for Gabbi Santiago HPI - SOB/Dyspnea General: Chief Complaint: Shortness of Breath/Dyspnea Stated Complaint: short of breath Time Seen by Provider: 11/18/19 04:06 Source: patient and family Mode of arrival: ambulatory History of Present Illness: HPI Narrative: 69 y/o male presents to the ED with complaint of SOB and difficulty breathing. Pt was seen here Wednesday and was d/c. Pt then went to [facility] and was admitted to the ICU for several days. states he was released to go home on evening. Tonight, he had sudden onset of SOB and heart palpitations. states he was experiencing episodes of Afib while in the ICU. He was sent home on 3L NC. He has a cough upon exam. MD elicited complaint: shortness of breath and cough Onset (ago): hour(s) Context: recent illness Timing: constant and progressively worsening Severity: moderate Exacerbating factors: movement, coughing and talking Associated symptoms: Reports chest congestion and palpitations; Deny abdominal pain, chest pain, diaphoresis, dizziness, extremity pain, fever(s), hemoptysis, nausea, orthopnea, polydipsia, syncope or vomiting Treatment prior to arrival: oxygen Review of Systems General: Reports: other (negative unless marked) Const: Denies: fever, chills, body aches, fatigue, malaise or diaphoresis Eyes: Denies: change in vision or blurry vision ENMT: Denies: throat pain, painful swallowing, hoarseness, ear pain, ear di scharge, Change in hearing or nasal discharge Card: Reports: palpitations and irregular heart rhythm; Denies: chest pain, syncope, pre-syncope, shortness of breath on exertion or shortness of breath when lying down Resp: Reports: shortness of breath, productive cough, wheezing and chest congestion; Denies: non-productive cough or coughing up blood GI: Denies: abdominal pain, nausea, vomiting, vomiting blood, coffee grounds in vomit, diarrhea, constipation, cramping, blood in stool or black tarry stool : Denies: flank pain, difficulty urinating, painful urination, urinary frequency, urinary urgency, decreased urine ouput, urinary incontinence or blood in urine Musc: Denies: neck pain, back pain, extremity pain, extremity swelling, joint pain, joint swelling, joint warmth or joint stiffness Skin/Breast: Denies: rash, skin tenderness or yellow skin Neuro: Denies: headache, numbness in extremities, weakness in extremities, changes in sensation, lack of coordination, difficulty walking, dizziness, vertigo or confusion Endo: Denies: excessive thirst, tired all the time, cold intolerance, excessive sweating, flushing or hot flashes Reginaldo/Lymph: Denies: easy bruising, easy bleeding, petechiae or enlarged lymph nodes All/Imm: Denies: hives, throat swelling, tongue swelling, facial swelling or acute wheezing PFSH ED PFSH: Social History Smoking and tobacco status: former smoker Quit status (tobacco): has quit using tobacco Year quit tobacco: 1999 - 2PPD x 30 Years Second hand smoke exposure: No Alcohol intake: former Year of sobriety/quit date alcohol: 1999 Former alcohol use details: HEAVY Household members: spouse Housing: House Marital status: service: Yes Current occupational status: retired History of recent travel: No Current gender identity: Male Physical Exam Const: EXAM LIMITATIONS: no altered mental status GENERAL APPEARANCE: cooperative, well kempt and well developed ORIENTATION/CONSCIOUSNESS: Yes awake HENMT: COMMON NORMALS: normocephalic, head/scalp atraumatic, hearing grossly normal bilaterally, external ears normal, EAC's normal, external nose normal and moist oral mucous membranes HEAD & SCALP: normal to inspection, normocephalic and atraumatic FACE & SINUS: normal facial exam and face symmetric NOSE: external nose normal and nares normal EXTERNAL EAR: Yes external ears normal EXTERNAL AUDITORY CANAL: EAC's normal MOUTH: oral and palatal mucosa normal and tongue normal Eye: COMMON NORMALS: PERRL, EOMs intact bilaterally, conjunctivae normal and no scleral icterus GENERAL EYE: normal appearance of both eyes and normal light reflex CONJUNCTIVA: Yes conjunctivae normal SCLERA: sclerae normal CORNEA: Yes corneas normal PUPIL: Yes PERRL DIRECT OPHTHALMOSCOPY: Yes normal light reflex Neck/C-Spine: COMMON NORMALS: full ROM, no lymphadenopathy, supple, no meningeal signs and no JVD GENERAL: Yes normal visual inspection and Yes t rachea midline CERVICAL SPINE: Yes cervical ROM normal Chest: COMMONS NORMALS: inspection of chest normal and palpation of chest normal Resp: EFFORT & INSPECTION: Yes labored, Yes actively coughing, Yes retractions and Yes uses accessory muscles AUSCULTATION: rhonchi, wheezes and diminished lung sounds Cardio: COMMON NORMALS: no JVD, regular rate, regular rhythm, S1 normal heart sound, S2 normal heart sound, no gallops, no clicks, no murmurs and no rub JUGULAR VENOUS DISTENTION: no JVD RATE: regular rate RHYTHM: regular rhythm HEART SOUNDS: S1 normal and S2 normal GI: COMMON NORMALS: soft to palpation, non-tender, no hepatosplenomegaly and no masses INSPECTION: Yes normal to inspection PALPATION: Yes soft and Yes no hepatosplenomegaly : COMMON NORMALS: Yes no CVA tenderness BLADDER/KIDNEY EXAM: Yes no CVA tenderness Back/Pelvis: COMMON NORMALS: no CVA tenderness, thoracic and lumbar spine normal to inspection, no thoracic nor lumbar tenderness and thoraco-lumbar ROM normal Extremity: COMMON NORMALS: normal to inspection, full ROM, normal capillary refill, no joint enlargement, no clubbing, cyanosis or edema and no calf tenderness Neuro: COMMON NORMALS: CN's II-XII intact bilaterally, moves all extremities, no focal motor deficits and no sensory deficits noted MENINGEAL SIGNS: Yes no meningeal signs Psych: COMMON NORMALS: mental status grossly normal, thought process normal, cooperative, affect normal, speech normal and activity/motor behavior normal APPEARANCE: Yes well kempt SPEECH: Yes normal speech THOUGHT PROCESS: normal thought process Skin: COMMON NORMALS: no rashes or lesions noted, skin turgor normal, no jaundice, no petechiae and no mottling GENERAL SKIN EXAM: no rashes or lesions noted and turgor normal Course Vital Signs: Vital signs: Vital Signs Temperature 97.4 F L 11/18/19 04:14 Pulse Rate 147 H 11/18/19 05:33 Respiratory Rate 20 H 11/18/19 05:33 Blood Pressure 114/93 11/18/19 05:33 Pulse Oximetry 96 11/18/19 05:33 MDM - SOB/Dyspnea Lab Data: Labs: Lab Results 11/18/19 11/18/19 11/18/19 Range/Units 04:48 04:48 04:48 WBC 11.3 H (4.0-10.0) 10^3/ uL RBC 5.96 H (4.1-5.3) 10^6/u L Hgb 16.7 H (11.7-16.6) g/dL Hct 51.7 (42.0-52.0) % MCV 86.7 (80-94) fL MCH 28.0 (28.0-34.0) pg MCHC 32.3 (30.0-36.0) g/dL RDW 13.1 (12.1-15.1) % Plt Count 201 (130-400) 10^3/c mm MPV 10.1 (7.4-10.4) fL Neut % (Auto) 84.7 % Lymph % (Auto) 4.6 % Fajardo % (Auto) 9.1 % Eos % (Auto) 0.2 % Baso % (Auto) 0.2 % Neut # (Auto) 9.6 H (1.8-7.7) 10^3/u L Lymph # (Auto) 0.5 L (0.8-4.8) 10^3/u L Fajardo # (Auto) 1.0 H (0.2-0.9) 10^3/u L Eos # (Auto) 0.0 (0.0-0.8) 10^3/u L Baso # (Auto) 0.0 (0.0-0.1) 10^3/u L Nucleated RBC % (a uto) 0 % Nucleated RBCs # 0.0 /100WBC PT (10.5-13.3) SECO NDS INR (0.8-1.2) Specimen Type Sample Site ABG pH (7.35-7.45) ABG pCO2 (35-45) mmHg ABG pO2 (80.0-100.0) mmH g ABG HCO3 (22-26) mmol/L ABG Base Excess (-2.0-2.0) mmol/ L Clifford Test Hematocrit (42-52) % O2 Delivery Device FiO2 % Glove Parts Cutter ID Sodium 137 (136-145) mmol/L Potassium 3.9 (3.5-5.1) mmol/L Chloride 96 L (98-107) mmol/L Carbon Dioxide 28 (22-29) mmol/L Anion Gap 16.9 (5-19) BUN 14 (8-23) mg/dL Creatinine 1.4 H (0.7-1.2) mg/dL Glucose 221 H (65-115) mg/dL Lactic Acid 2.3 H (0.5-2.2) mmol/L Calcium 11.0 H (8.5-10.5) mg/dL Magnesium 1.6 L (1.7-2.3) mg/dL Total Bilirubin 1.1 (0.15-1.2) mg/dL AST 27 (0-40) U/L ALT 14 (0-41) U/L Alkaline Phosphata se 105 (40-130) IU/L Troponin T Baselin e (0-15) ng/mL NT-Pro-B Natriuret Pep 344 H (0-125) pg/mL Total Protein 7.4 (6.6-8.7) g/dL Albumin 3.3 L (3.5-5.2) g/dL Globulin 4.1 (1.3-4.6) g/dL Lipase 87 H (13-60) U/L Influenza Type A A g (Negative) POC Influenza B Ag (Negative) 11/18/19 11/18/19 11/18/19 Range/Units 04:48 04:48 04:48 WBC (4.0-10.0) 10^3/ uL RBC (4.1-5.3) 10^6/u L Hgb (11.7-16.6) g/dL Hct (42.0-52.0) % MCV (80-94) fL MCH (28.0-34.0) pg MCHC (30.0-36.0) g/dL RDW (12.1-15.1) % Plt Count (130-400) 10^3/c mm MPV (7.4-10.4) fL Neut % (Auto) % Lymph % (Auto) % Fajardo % (Auto) % Eos % (Auto) % Baso % (Auto) % Neut # (Auto) (1.8-7.7) 10^3/u L Lymph # (Auto) (0.8-4.8) 10^3/u L Fajardo # (Auto) (0.2-0.9) 10^3/u L Eos # (Auto) (0.0-0.8) 10^3/u L Baso # (Auto) (0.0-0.1) 10^3/u L Nucleated RBC % (a uto) % Nucleated RBCs # /100WBC PT 16.10 H (10.5-13.3) SECO NDS INR 1.25 H (0.8-1.2) Specimen Type Sample Site ABG pH (7.35-7.45) ABG pCO2 (35-45) mmHg ABG pO2 (80.0-100.0) mmH g ABG HCO3 (22-26) mmol/L ABG Base Excess (-2.0-2.0) mmol/ L Clifford Test Hematocrit (42-52) % O2 Delivery Device FiO2 % Glove Parts Cutter ID Sodium (136-145) mmol/L Potassium (3.5-5.1) mmol/L Chloride (98-107) mmol/L Carbon Dioxide (22-29) mmol/L Anion Gap (5-19) BUN (8-23) mg/dL Creatinine (0.7-1.2) mg/dL Glucose (65-115) mg/dL Lactic Acid (0.5-2.2) mmol/L Calcium (8.5-10.5) mg/dL Magnesium (1.7-2.3) mg/dL Total Bilirubin (0.15-1.2) mg/dL AST (0-40) U/L ALT (0-41) U/L Alkaline Phosphata se (40-130) IU/L Troponin T Baselin e 18 H (0-15) ng/mL NT-Pro-B Natriuret Pep (0-125) pg/mL Total Protein (6.6-8.7) g/dL Albumin (3.5-5.2) g/dL Globulin (1.3-4.6) g/dL Lipase (13-60) U/L Influenza Type A A g Positive H (Negative) POC Influenza B Ag Negative (Negative) 11/18/19 Range/Units 04:57 WBC (4.0-10.0) 10^3/ uL RBC (4.1-5.3) 10^6/u L Hgb (11.7-16.6) g/dL Hct (42.0-52.0) % MCV (80-94) fL MCH (28.0-34.0) pg MCHC (30.0-36.0) g/dL RDW (12.1-15.1) % Plt Count (130-400) 10^3/c mm MPV (7.4-10.4) fL Neut % (Auto) % Lymph % (Auto) % Fajardo % (Auto) % Eos % (Auto) % Baso % (Auto) % Neut # (Auto) (1.8-7.7) 10^3/u L Lymph # (Auto) (0.8-4.8) 10^3/u L Fajardo # (Auto) (0.2-0.9) 10^3/u L Eos # (Auto) (0.0-0.8) 10^3/u L Baso # (Auto) (0.0-0.1) 10^3/u L Nucleated RBC % (a uto) % Nucleated RBCs # /100WBC PT (10.5-13.3) SECO NDS INR (0.8-1.2) Specimen Type Arterial Sample Site Brachial, left ABG pH 7.47 H (7.35-7.45) ABG pCO2 33.9 L (35-45) mmHg ABG pO2 80.9 (80.0-100.0) mmH g ABG HCO3 24.7 (22-26) mmol/L ABG Base Excess 1.6 (-2.0-2.0) mmol/ L Clifford Test Pos Hematocrit 51.6 (42-52) % O2 Delivery Device Bipap FiO2 35.0 % Glove Parts Cutter ID [email or web address] Sodium (136-145) mmol/L Potassium (3.5-5.1) mmol/L Chloride (98-107) mmol/L Carbon Dioxide (22-29) mmol/L Anion Gap (5-19) BUN (8-23) mg/dL Creatinine (0.7-1.2) mg/dL Glucose (65-115) mg/dL Lactic Acid (0.5-2.2) mmol/L Calcium (8.5-10.5) mg/dL Magnesium (1.7-2.3) mg/dL Total Bilirubin (0.15-1.2) mg/dL AST (0-40) U/L ALT (0-41) U/L Alkaline Phosphata se (40-130) IU/L Troponin T Baselin e (0-15) ng/mL NT-Pro-B Natriuret Pep (0-125) pg/mL Total Protein (6.6-8.7) g/dL Albumin (3.5-5.2) g/dL Globulin (1.3-4.6) g/dL Lipase (13-60) U/L Influenza Type A A g (Negative) POC Influenza B Ag (Negative) EKG Data^: EKG 1: Attestation: I personally reviewed and interpreted this EKG as follows: EKG Interpretation Date: 11/18/19 EKG interpretation time: 04:22 Interpretation: Atrial flutter with a ventricular rate of 163, nonspecific ST-T wave findings, similar to previous with rhythm but rate abnormal this time. Discharge Plan Discharge Prescriptions: No Action tamsulosin 0.4 mg capsule 0.4 mg PO QDAY RF: 0 finasteride 5 mg tablet 5 mg PO QDAY RF: 0 lisinopril 20 mg tablet 20 mg PO QDAY Qty: 90 RF: 3 hydrochlorothiazide 25 mg tablet 25 mg PO QAM RF: 0 Symbicort 160-4.5 mcg/actuation HFA aerosol inhaler 2 puff INHALATION BID RF: 0 cyclobenzaprine 10 mg tablet 10 mg PO TID RF: 0 hydrocodone-guaifenesin 2.5-200 mg/5 mL solution 5 - 10 ml PO Q6H PRN (Reason: cough) 30 Days Qty: 473 RF: 0 prednisone 20 mg tablet 20 mg PO DAILY PRN (Reason: shortness of breath) Qty: 30 RF: 0 Eliquis 5 mg Tablet 5 mg PO BID RF: 0 Flonase Allergy Relief 50 mcg/actuation [place],Suspension 1 spray INTRANASAL DAILY RF: 0 Spiriva Respimat 2.5 mcg/actuation Mist 2 inh INHALATION QAM RF: 0 losartan 100 mg Tablet 50 mg PO DAILY RF: 0 doxycycline hyclate 100 mg tablet 100 mg PO BID 10 Days Qty: 20 RF: 0 Sign Out Sign Out Data: Sign Out Comment: Case turned over to Dr. Brenner at change of shift. Last updated by Gabbi Santiago at 11/18/19 05:46 Coding Level of Care Code ED Linseed Cake Trimmer for Chg Fwd Exam Comprehensive The documentation recorded by the Moris johnson Ashley, accurately reflects the service I personally performed and the decisions made by me, Gabbi Santiago Nov 18, 2019 04:02
[2019-11-18] MEDS: doxycycline 100 MG in sodium chloride 0.9% (plus) 100 ML IV (04:37)
[2019-11-18] MEDS: ondansetron 2 mg/ML SDV 2 mL 4 MG IVP (04:37)
[2019-11-18] MEDS: morphine 4 mg/mL SDV 1 mL IVP (04:45)
[2019-11-18] MEDS: ipratropium 0.5 mg/2.5 mL Neb 1.5 MG INHALATION (04:50)
[2019-11-18] MEDS: levalbuterol 1.25 mg/3 mL Neb 3.75 MG INHALATION (04:50)
[2019-11-18 04:57] LABS: Basophils % 0.2 %; Eosinophils % 0.2 %; Hematocrit 51.7 % (42.0-52.0); Hemoglobin 16.7 g/dL (11.7-16.6); Lymphocytes # 0.5 10^3/uL (0.8-4.8); Lymphocytes % 4.6 %; Mean Corpuscular HGB Conc 32.3 g/dL (30.0-36.0); Mean Corpuscular Volume 86.7 fL (80-94); Mean Platelet Volume 10.1 fL (7.4-10.4); Monocytes % 9.1 %; Neutrophils # 9.6 10^3/uL (1.8-7.7); Neutrophils % 84.7 %; Nucleated Red Blood Cells % 0 %; Platelet Count 201 10^3/cmm (130-400); Red Blood Count 5.96 10^6/uL (4.1-5.3); Red Cell Distribution Width 13.1 % (12.1-15.1); White Blood Count 11.3 10^3/uL (4.0-10.0)
[2019-11-18 05:08] LABS: ABG PCO2 33.9 mmHg (35-45); ABG PH Result 7.47 (7.35-7.45); Arterial Blood Gas Hematocrit 51.6 % (42-52); Base Excess ABG 1.6 mmol/L (-2.0-2.0); Blood Gas Allen Test Pos; Blood Gas Sample Site Brachial, left; Blood Gas Sample Type Arterial; HCO3 ABG 24.7 mmol/L (22-26); Oxygen Device BIPAP; PO2 ABG 80.9 mmHg (80.0-100.0)
[2019-11-18] MEDS: sodium chloride 0.9% 1,000 ML 999 ML IV (05:08)
[2019-11-18 05:14] LABS: INR 1.25 (0.8-1.2)
[2019-11-18 05:16] LABS: Influenza A by IFA Positive (Negative); Influenza B by IFA Negative (Negative)
[2019-11-18 05:23] LABS: Lactic Sepsis W/Reflex 2.3 mmol/L (0.5-2.2)
[2019-11-18 05:25] LABS: Troponin(5th) Baseline 18 ng/mL (0-15)
[2019-11-18 05:33] LABS: Alanine Aminotransferase 14 U/L (0-41); Albumin Level 3.3 g/dL (3.5-5.2); Alkaline Phosphatase 105 IU/L (40-130); Anion Gap 16.9 (5-19); Aspartate Amino Transferase 27 U/L (0-40); Blood Urea Nitrogen 14 mg/dL (8-23); Carbon Dioxide 28 mmol/L (22-29); Chloride 96 mmol/L (98-107); Globulin 4.1 g/dL (1.3-4.6); Glucose 221 mg/dL (65-115); Lipase 87 U/L (13-60); Magnesium 1.6 mg/dL (1.7-2.3); NT Pro B Type Natriuretic Pept 344 pg/mL (0-125); Potassium 3.9 mmol/L (3.5-5.1); Sodium 137 mmol/L (136-145); Total Bilirubin 1.1 mg/dL (0.15-1.2); Total Protein 7.4 g/dL (6.6-8.7)
[2019-11-18] MEDS: magnesium sulfate premix 2 GM/50 ML PIGGYBACK IV (05:53)
--- NOTE | 2019-11-18 06:16 | ECG_ITS ---
Measurements Intervals [place] Rate: 163 P: MI: 0 QRS: 82 QRSD: 89 T: 0 QT: 249 QTc: 410 ATRIAL FLUTTER/TACHYCARDIA WITH RAPID VENTRICULAR RESPONSE NONSPECIFIC ST & T-WAVE ABNORMALITY CRITICAL TEST RESULT Compared to ECG 11/14/2019 07:51:41 T-wave abnormality now present Electronically Signed On 11-18-2019 20:34:40 IT RECRUITER by Radha Duarte M.D. [id number]
[2019-11-18 06:41] LABS: Reflex Lactate Order REFLEX LACTIC ORDERD
[2019-11-18] MEDS: labetalol 5 mg/mL SDV 20mL 50 MG IVP (06:46)
[2019-11-18] MEDS: sodium chloride 0.9% 1,000 ML 100 ML IV (06:51)
[2019-11-18] MEDS: cefTRIAXone 1,000 MG in sodium chloride 0.9% (plus) 50 ML 100 MG IV (07:09)
[2019-11-18 07:31] LABS: Troponin 5 2HR 23.18 ng/mL (0-15); Troponin 5 2HR Delta 5.18 ABS# (0-10)
[2019-11-18] MEDS: azithromycin 500 MG in sodium chloride 0.9% 250 ML 250 MG IV (07:33)
[2019-11-18 08:46] LABS: Lactic Acid level (Lactate) 1.6 mmol/L (0.5-2.2)
--- NOTE | 2019-11-18 09:22 | PC.NURSE ---
Dr Jolley at bedside
--- NOTE | 2019-11-18 09:38 | CTR_ITS ---
PROCEDURE INFORMATION: Exam: CT Angiography Chest With Contrast Exam date and time: 11/18/2019 9:55 AM Age: 69 years old Clinical indication: Shortness of breath; Additional info: SOB TECHNIQUE: Imaging protocol: Computed tomographic angiography of the chest with intravenous contrast. 3D rendering: MIP and/or 3D reconstructed images were created by the technologist. Total DLP: 691.98 mGy-cm Radiation optimization: All CT scans at this facility use at least one of these dose optimization techniques: automated exposure control; mA and/or kV adjustment per patient size (includes targeted exams where dose is matched to clinical indication); or iterative reconstruction. Contrast material: VISI 320; Contrast volume: 95 ml; Contrast route: RT AC; COMPARISON: CT chest w con* [id number] 10/12/2019 10:05 AM FINDINGS: Pulmonary arteries: There is no pulmonary embolus. Aorta: Unremarkable. No aortic aneurysm. No aortic dissection. Lungs: Severe emphysematous changes are noted. Nonspecific new bibasilar consolidation is present, consistent with atelectasis, edema, or pneumonia. There is a 1.0 cm subpleural nodule anterior right middle lobe image 53 increase in the prior exam where it measured 0.9 cm. There is some mild dependent atelectasis. Pleural space: Unremarkable. No pneumothorax. No pleural effusion. Heart: See Lymph Nodes Finding. Mediastinum: A small hiatal hernia is present. Spleen: The spleen is normal in size. Kidneys and ureters: There is a simple cyst in the right kidney. Lymph nodes: There is increasing mediastinal and hilar adenopathy compared to the prior exam. For example there is a precarinal lymph node image 219 that now measures 2.9 x 3.1 cm in size where previously it measured 2.5 by 2.6 cm. There is a right hilar lymph node image 327 today that measures 2.5 by 3.0 cm. Previously it measured 2.8 x 2.4 cm. Multiple new left hilar lymph nodes are noted with extensive bulky soft tissue density in the left hilum. There is a small pericardial effusion. Adenopathy is also identified in the upper abdomen especially in the left retroperitoneum image 582 with there is a lymph node with a short axis measurement of 2.3 cm today that previously measured 1.1 cm. One the largest lymph nodes in the deanne hepatis today on image 554 measures 2.9 cm in short axis compared to 1.3 cm previously. There is markedly increasing adenopathy in the aortopulmonary window with a 2 cm short axis lymph node image 196 increased from 1 cm previously. Bones/joints: Bony lytic lesions are also increasing concerning for progressive metastatic disease in the thoracic spine most notably the lytic lesion in T11 which now measures up to 2 cm in greatest dimension today compared to 0.9 cm previously. The large lytic lesion in T9 has a greatest measurement of 1.8 cm today compared to 0.6 cm previously. Multiple lytic lesions are noted in the sternum not well visualized on the prior exam. No pathologic or new fracture. Soft tissues: There is a 9 mm soft tissue nodule right middle lobe image 35 series 3 unchanged since the prior exam. Pleural based spiculated mass medial right lower lobe image 44 measures 3.4 by 2.4 cm increased from the prior exam where it measured 2.9 x 2.3 cm. Other findings: No additional enlarging pulmonary nodule. CT/CT angio chest PE protcl [id number] IMPRESSION: 1. There is no pulmonary embolus. 2. Marked increase in adenopathy in the mediastinum, cris, abdomen and visualized retroperitoneum. 3. Nonspecific new bibasilar consolidation is present, consistent with atelectasis, edema, or pneumonia. 4. Enlarging pulmonary nodules compatible with disease progression.Fleischner follow up recommendations for incidental nodules are not indicated. Follow up per patient's medical condition. 5. 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 No pathologic fracture. Radiation Dose CTDIVOL = (mGy): DLP = 691.98 (mGy-cm)
[2019-11-18] MEDS: lactated ringers 500 ML 999 ML IV (09:48)
--- NOTE | 2019-11-18 10:16 | ECG_ITS ---
Measurements Intervals [place] Rate: 74 P: 75 NM: 136 QRS: 70 QRSD: 94 T: 64 QT: 357 QTc: 398 SINUS RHYTHM Compared to ECG 11/14/2019 07:51:41 Atrial flutter no longer present Electronically Signed On 11-18-2019 20:34:52 INSTRUMENT OPERATOR by Radha Duarte M.D. [id number]
[2019-11-18 10:21] LABS: C Reactive Protein 97.9 mg/L (0.0-4.9)
[2019-11-18] MEDS: iodixanol 320 mg/mL 100mL Btl IV (10:25)
[2019-11-18 10:45] LABS: Procalcitonin 0.75 ng/mL (0-0.5)
[2019-11-18 11:01] LABS: Erythrocyte Sedimentation Rate 29 mm/hr (0-10)
--- NOTE | 2019-11-18 11:20 | ECG_ITS ---
Measurements Intervals [place] Rate: 79 P: 78 AK: 140 QRS: 74 QRSD: 99 T: 67 QT: 369 QTc: 424 SINUS RHYTHM Possible old inferior wall VA Compared to ECG 11/14/2019 07:51:41 Atrial flutter no longer present Electronically Signed On 11-18-2019 20:27:03 GLASS PROCESSING WORKER by Radha Duarte M.D. [email or web address]
[2019-11-18 11:48] LABS: Troponin 5 6HR 16.53 ng/mL (0-15)
[2019-11-18 11:54] LABS: Troponin 5 6HR Delta -1.47 ng/L (0-12)
[2019-11-18 12:19] LABS: INR 1.27 (0.8-1.2)
[2019-11-18 12:24] LABS: Magnesium 2.2 mg/dL (1.7-2.3); NT Pro B Type Natriuretic Pept 481 pg/mL (0-125); Phosphorus 2.4 mg/dL (2.5-4.5); Thyroid Stimulating Hormone 1.84 uIU/mL (0.27-4.20)
--- NOTE | 2019-11-18 12:27 | PC.OT ---
Patient was just arriving to ICU upon therapist arrival. Will wait until AM to attempt OT evaluation.
[2019-11-18 12:37] LABS: Lactic Acid level (Lactate) 2.2 mmol/L (0.5-2.2)
[2019-11-18] MEDS: piperacillin-tazobactam 3.375 GM in sodium chloride 0.9% (plus) 50 ML IV ×2 (13:48→20:17)
[2019-11-18] MEDS: ipratropium-albuterol 3 mL Neb INHALATION ×3 (14:07→22:37)
--- NOTE | 2019-11-18 15:37 | ECG_ITS ---
Measurements Intervals [place] Rate: 79 P: 78 AK: 146 QRS: 77 QRSD: 112 T: 66 QT: 372 QTc: 426 SINUS RHYTHM POSSIBLE INFERIOR MYOCARDIAL INFARCTION [30 ms Q WAVE IN II/aVF], PROBABLY OLD Compared to ECG 11/14/2019 07:51:41 Myocardial infarct finding now present Atrial flutter no longer present Electronically Signed On 11-18-2019 20:35:51 RUG CUTTER HELPER by Radha Duarte M.D. [id number]
--- NOTE | 2019-11-18 15:58 | PC.NURSE ---
IVF notgiven. Dr. Jolley states he will order intermittant boluses as needed to maintain BP.
--- NOTE | 2019-11-18 16:10 | P.HP_ITS ---
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 Patient states that for the last few days he has had increased shortness of breath, productive cough yellow phlegm, intermittent fevers, chills, no nausea, no vomiting, chest pressure anterior wall, nonradiating, poor appetite. Patient states that he was here in the emergency room on 11/11/2019 for shortness of breath and cough, diagnosed with a pneumonia, but he left AGAINST MEDICAL ADVICE. Patient states that before this a few weeks ago he was admitted [facility] for pneumonia, and atrial fibrillation with rapid ventricular response. Patient's recent diagnosis of squamous cell carcinoma has been a shock to him and his family, he is remained more bedbound, he does have shortness of breath with very minimal exertion, poor appetite, fatigue, malaise, no sick contacts, no recent travel. Review of Systems Const: Reports: fever, chills, change in appetite, fatigue, malaise and change in sleep pattern Eyes: Denies: change in vision or blurry vision ENMT: Denies: nasal congestion Resp: Reports: shortness of breath, productive cough and wheezing; Denies: non-productive cough GI: Denies: abdominal pain, nausea, vomiting, vomiting blood, diarrhea, con stipation, blood in stool or black tarry stool : Denies: flank pain, difficulty urinating, painful urination or urinary frequency Musc: Denies: neck pain or back pain Skin/Breast: Denies: rash Neuro: Reports: dizziness; Denies: headache or vertigo Psych: Denies: anxiety or depression Endo: Denies: excessive urination or excessive thirst Medications/Allergies Home Medications Medication Instructions Recorded Confirmed Last Taken Type albuterol sulfate 2.5 mg INHALATION QID PRN 11/18/19 11/18/19 Unknown History ascorbic acid (vitamin C) [Vitamin 500 mg PO DAILY 11/18/19 11/18/19 11/16/19 History C] benzonatate 200 mg PO TID PRN 11/18/19 11/18/19 11/17/19 History calcium carbonate [Calcium 600] 600 mg PO DAILY 11/18/19 11/18/19 11/16/19 History cholecalciferol (vitamin D3) 2,000 unit PO DAILY 11/18/19 11/18/19 11/16/19 History [Vitamin D3] metoprolol tartrate 12.5 mg PO BID 11/18/19 11/18/19 11/17/19 History nitroglycerin [Nitrostat] 0.4 mg SUBLINGUAL Q5M PRN 11/18/19 11/18/19 11/18/19 History Allergies Allergy/AdvReac Type Severity Reaction Status Date / Time No Known Allergies Allergy Verified 11/09/19 10:02 PFSH Acute PFSH: Social History Smoking and tobacco status: former smoker Quit status (tobacco): has quit using tobacco Year quit tobacco: 1999 - 2PPD x 30 Years Second hand smoke exposure: No Alcohol intake: former Year of sobriety/quit date alcohol: 1999 Former alcohol use details: HEAVY Household members: spouse Housing: House Marital status: service: Yes Current occupational status: retired History of recent travel: No Current gender identity: Male Vitals/I&O/Wt Last Vital Signs Temp 97.4 F L 11/18/19 04:14 Pulse 78 11/18/19 15:45 Resp 23 H 11/18/19 15:45 BP 127/70 11/18/19 15:45 Pulse Ox 90 11/18/19 15:45 11/18/19 11/18/19 11/18/19 06:59 14:59 22:59 Intake Total 1111.750 / 6044.522 7699.667 / 3752.667 Output Total 0 / 0 Balance 1111.750 / 6402.584 3363.667 / 3752.667 Weight last 48 hrs Weight 95.708 kg Physical Exam Const: COMMON NORMALS: no apparent distress and oriented x3 GENERAL APPEARANCE: cooperative and comfortable HENMT: COMMON NORMALS: normocephalic HEAD & SCALP: normocephalic Eye: COMMON NORMALS: PERRL, EOMs intact bilaterally and no papilledema GENERAL EYE: normal appearance of both eyes PUPIL: Yes PERRL DIRECT OPHTHALMOSCOPY: Yes no papilledema Neck/C-Spine: COMMON NORMALS: full ROM, no lymphadenopathy, no JVD and thyroid normal THYROID: thyroid normal Lymph: LYMPHATIC: no lymphadenopathy noted Resp: COMMON NORMALS: normal respiratory effort, no retractions, no use of accessory muscles and clear to auscultation bilaterally AUSCULTATION: clear to auscultation bilaterally Cardio: COMMON NORMALS: no JVD, regular rate, regular rhythm, S1 normal heart sound, S2 normal heart sound, no gallops, no clicks and no murmurs RATE: regular rate RHYTHM: regular rhythm HEART SOUNDS: S1 normal and S2 normal GI: COMMON NORMALS: normal to inspection, nondistended, normoactive bowel sounds, soft to palpation, non-tender and no hepatosplenomegaly PALPATION: Yes soft and Yes no hepatosplenomegaly Extremity: COMMON NORMALS: normal to inspection, full ROM and no pedal edema Neuro: COMMON NORMALS: oriented x3, CN's II-XII intact bilaterally, moves all extremities and no focal motor deficits Psych: COMMON NORMALS: mental status grossly normal, thought process normal and cooperative THOUGHT PROCESS: normal thought process Sepsis: Is patient septic: Yes Focused sepsis exam performed: Yes Date exam was performed: 11/18/19 Time exam was performed: 11:02 Data : 11/18/19 04:48 11/18/19 04:48 Micro: Microbiology 11/18/19 05:30 Blood Culture - Preliminary Blood SPECIMEN COLLECTED 11/18/19 04:48 Blood Culture - Preliminary Blood SPECIMEN COLLECTED A&P Assessment and plan (1) Acute respiratory failure with hypoxia and hypercapnia: -Secondary to healthcare associated pneumonia and influenza A with sepsis -Patient did require Levophed for some time in the ER, which has subsequently stopped, patient has responded to 3 L sepsis bolus -Patient did initially require BiPAP in the ER, now on nasal cannula -Clinically patient is septic, with systolic blood pressures in the 90s, respiratory rate in the 20s, has intermittent episodes of respiratory distress Plan: -Admit to ICU -Tamiflu for influenza A -Broad-spectrum antibiotics vancomycin and Zosyn for healthcare associated pneumonia -Urine bacterial antigens, respiratory cultures, viral PCR - Monitor blood pressures, maintain map greater than 65, LR boluses if required, will NICOM machine if required -Nebulizer treatments -Solu-Medrol 40 every 8 hours -BiPAP PRN -Follow blood cultures, urine cultures, urine bacterial antigen, respiratory viral PCR -Patient is DNR/DNI, does not want elective intubation, does not want chest compressions, does not want aggressive interventions, is okay with ICU mission, okay with IV treatments, the reason I admitted to the patient to the ICU is for accurate sepsis management Status: Acute Code(s): J96.01 - Acute respiratory failure with hypoxia; J96.02 - Acute respiratory failure with hypercapnia (2) Atrial fibrillation with RVR: -Patient had A. 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 [place] -Denies a history of DVTs or PEs Plan: -Telemetry monitoring -Continue Eliquis -Patient uses Metroprolol 25 twice daily as outpatient, hold for now -We will put PRN metoprolol pushes to control heart rate once patient gets over sepsis Status: Acute Code(s): I48.91 - Unspecified atrial fibrillation (3) NSTEMI (non-ST elevated myocardial infarction): -Likely supply demand ischemia from respiratory failure -No acute ST-T wave changes -Did have chest pain this morning -No chest pain now Plan: -Aspirin, statin, PRN nitro -Echocardiogram ordered -Telemetry monitoring Status: Acute Code(s): I21.4 - Non-ST elevation (NSTEMI) myocardial infarction (4) Influenza A: Status: Acute Code(s): J10.1 - Influenza due to other identified influenza virus with other respiratory manifestations (5) HCAP (healthcare-associated pneumonia): Status: Acute Code(s): J18.9 - Pneumonia, unspecified organism (6) Squamous cell lung cancer: -Is supposed to see Dr. 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 Shannon for a PET scan and further evaluation -CT angiogram was ordered to rule out pulmonary embolism given cancer diagnosis, and history of shortness of breath Status: Acute Qualifiers: Laterality: unspecified laterality Qualified Code(s): C34.90 - Malignant neoplasm of unspecified part of unspecified bronchus or lung Code(s): C34.90 - Malignant neoplasm of unspecified part of unspecified bronchus or lung (7) Panlobular emphysema: Status: Acute Code(s): J43.1 - Panlobular emphysema (8) Essential (primary) hypertension: Status: Acute Code(s): I10 - Essential (primary) hypertension (9) Rheumatoid arthritis, seropositive, multiple sites: Status: Acute Code(s): M05.79 - Rheumatoid arthritis with rheumatoid factor of multiple sites without organ or systems involvement Attestations Medical Necessity Statement*: Because hospitalization, greater than 2 mid nights, for acute respiratory failure, influenza A Coding Level of Care Code Acute 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 for [facility] Fwd Diagnoses Acute respiratory failure with hypoxia and hypercapnia J96.01; J96.02 Atrial fibrillation with RVR I48.91 NSTEMI (non-ST elevated myocardial infarction) I21.4 Influenza A J10.1 HCAP (healthcare-associated pneumonia) J18.9 Squamous cell lung cancer C34.90 Laterality: unspecified laterality Panlobular emphysema J43.1 Essential (primary) hypertension I10 Rheumatoid arthritis, seropositive, multiple sites M05.79 Sepsis Event Note Evaluation Current stage of sepsis: sepsis Initial hypotension due to sepsis/infection: SBP < 90 mmHg Possible source: pulmonary Focused Exam Vital Signs Pulse Pulse Resp BP BP Pulse Ox 11/18/19 15:45 78 23 H 127/70 90 11/18/19 15:30 83 24 H 127/70 89 L 11/18/19 15:00 80 18 127/70 91 11/18/19 14:45 81 20 H 90 11/18/19 14:30 83 20 H 112/69 90 11/18/19 14:15 85 17 93 11/18/19 14:13 92 11/18/19 14:12 86 11/18/19 14:08 86 22 H 93 11/18/19 14:00 90 24 H 93 11/18/19 13:45 83 24 H 121/72 91 11/18/19 13:30 84 18 119/59 92 11/18/19 13:15 81 21 H 90 11/18/19 13:00 79 22 H 96/65 92 11/18/19 12:45 82 18 100/62 90 11/18/19 12:30 82 14 108/61 92 11/18/19 12:15 81 21 H 108/66 92 11/18/19 12:01 108/66 11/18/19 11:30 79 18 111/71 93 11/18/19 10:41 78 20 H 112/60 92 11/18/19 09:52 79 18 103/67 92 11/18/19 09:22 76 20 H 103/67 93 11/18/19 08:40 77 17 108/66 92 11/18/19 08:12 76 17 104/68 94 11/18/19 07:40 75 20 H 104/65 94 11/18/19 07:39 94 11/18/19 07:37 75 18 99/56 93 11/18/19 06:57 75 18 83/53 91 11/18/19 06:16 110 H 20 H 104/57 95 11/18/19 05:57 112 H 25 H 83/53 96 11/18/19 05:56 95/47 11/18/19 05:33 147 H 20 H 114/93 96 11/18/19 05:14 138 H 25 H 98/56 95 11/18/19 05:11 138 H 94 11/18/19 04:51 98 14 99/56 93 11/18/19 04:50 142 H 22 H 95 11/18/19 04:45 18 92 Respiratory exam: Present decreased breath sounds; Absent accessory muscle use and patient mechanically ventilated Cardiovascular exam: Present RRR, S1 and S2 Capillary refill: < 3 Seconds Peripheral pulse strength: 3+ Normal Peripheral pulse location: Pedal Skin exam: normal turgor Date exam was performed: 11/18/19 Time exam was performed: 16:19 Problem List (1) Acute respiratory failure with hypoxia and hypercapnia: Current Visit: Yes Status: Acute (2) Atrial fibrillation with RVR: Current Visit: Yes Status: Acute (3) NSTEMI (non-ST elevated myocardial infarction): Current Visit: Yes Status: Acute (4) Influenza A: Current Visit: Yes Status: Acute (5) HCAP (healthcare-associated pneumonia): Current Visit: Yes Status: Acute (6) Squamous cell lung cancer: Current Visit: No Status: Acute (7) Panlobular emphysema: Current Visit: No Status: Acute (8) Essential (primary) hypertension: Current Visit: No Status: Acute (9) Rheumatoid arthritis, seropositive, multiple sites: Current Visit: No Status: Acute
[2019-11-18] MEDS: tamsulosin 0.4 mg Capsule PO (17:36)
[2019-11-18] MEDS: apixaban 5 mg Tablet PO (17:36)
[2019-11-18] MEDS: aspirin 81 mg EC Tablet PO (17:36)
[2019-11-18] MEDS: finasteride 5 mg Tablet PO (17:36)
[2019-11-18 17:40] LABS: Bilirubin Urine Neg (NEGATIVE); Blood Urine Neg (Negative); Glucose Urine UA 2+ (Normal); Ketones Urine Negative (Negative); Nitrate Urine Negative (Negative); Protein Urine Neg (Negative); Specific Gravity, Urine 1.015 (1.005-1.030); Urine Appearance SL Hazy (CLEAR); Urine Color Straw (Yellow); Urobilinogen Urine 1 mg/dL (Negative); pH Urine 5 (5-7)
[2019-11-18 17:41] LABS: Leukocyte Esterase Urine Negative (Negative)
[2019-11-18 17:47] LABS: Squamous Epithelial Cell Urine RARE (0-5); WBC Urine 0-4 /hpf (0-5)
[2019-11-18 17:48] LABS: Bacteria Urine TRACE; Mucus Urine 1+
[2019-11-18 17:49] LABS: Add Urine Culture? No; Hyaline Casts Urine 15-25
[2019-11-18] MEDS: oseltamivir phosphate 75 mg Capsule PO (18:33)
[2019-11-18] MEDS: atorvastatin 40 mg Tablet PO (20:17)
--- NOTE | 2019-11-18 20:25 | PC.NURSE ---
1900 report rcvd at this time. vss per cm. no distress noted. family at bedside. questions answered. mrsa swab sent to lab. assessment per flowsheet. christophe stark.
[2019-11-19] VITALS (25 sets, daily range): BP systolic 133–166; BP diastolic 77–95; PULSE 67–91; RESP 14–23; TEMP 36.4–37.1; O2SAT 89–95
[2019-11-19] MEDS: piperacillin-tazobactam 3.375 GM in sodium chloride 0.9% (plus) 50 ML IV ×3 (03:34→21:04)
[2019-11-19] MEDS: ipratropium-albuterol 3 mL Neb INHALATION ×6 (03:42→21:59)
[2019-11-19 04:49] LABS: Hematocrit 46.3 % (42.0-52.0); Hemoglobin 15.1 g/dL (11.7-16.6); Lymphocytes # 0.2 10^3/uL (0.8-4.8); Lymphocytes % 3.3 %; Mean Corpuscular HGB Conc 32.6 g/dL (30.0-36.0); Mean Corpuscular Hemoglobin 29.2 pg (28.0-34.0); Mean Corpuscular Volume 89.4 fL (80-94); Mean Platelet Volume 10.4 fL (7.4-10.4); Monocytes # 0.2 10^3/uL (0.2-0.9); Monocytes % 2.9 %; Neutrophils # 6.9 10^3/uL (1.8-7.7); Neutrophils % 93.4 %; Nucleated Red Blood Cells % 0 %; Platelet Count 175 10^3/cmm (130-400); Red Blood Count 5.18 10^6/uL (4.1-5.3); White Blood Count 7.3 10^3/uL (4.0-10.0)
[2019-11-19 05:06] LABS: Alanine Aminotransferase 11 U/L (0-41); Albumin Level 2.8 g/dL (3.5-5.2); Alkaline Phosphatase 84 IU/L (40-130); Anion Gap 15.8 (5-19); Aspartate Amino Transferase 21 U/L (0-40); Blood Urea Nitrogen 19 mg/dL (8-23); Carbon Dioxide 23 mmol/L (22-29); Chloride 98 mmol/L (98-107); Globulin 4.3 g/dL (1.3-4.6); Glucose 285 mg/dL (65-115); Phosphorus 2.9 mg/dL (2.5-4.5); Potassium 3.8 mmol/L (3.5-5.1); Sodium 133 mmol/L (136-145); Total Bilirubin 0.5 mg/dL (0.15-1.2); Total Protein 7.1 g/dL (6.6-8.7)
--- NOTE | 2019-11-19 06:00 | USCV_ITS ---
Giuseppe Grimaldo Age: 69 Gender: M : 1950 Exam Date: 11/19/2019 07:27 Ordering Phys: Beto Jolley MD Technologist: Candi Guzman [place] [facility] [place]: Shortness of breath BP: 166 / 89 HR: 78 Rhythm: Sinus Technical Quality: Suboptimal MEASUREMENTS (Male / Female) Normal Values 2D ECHO LV Diastolic Diameter PLAX 3.6 cm 4.2 - 5.9 / 3.9 - 5.3 cm LV Systolic Diameter PLAX 1.8 cm LV Chamber Size 3.6 cm IVS Diastolic Thickness 1.3 cm 0.6 - 1.0 / 0.6 - 0.9 cm IVS Systolic Thickness 2.3 cm LVPW Diastolic Thickness 1.4 cm 0.6 - 1.0 / 0.6 - 0.9 cm LVPW Systolic Thickness 1.6 cm RV Chamber Size 3.6 cm LVOT Diameter 2.1 cm LV Ejection Fraction 2D Teich 82.8 % LV Ejection Fraction MOD 2C 65.1 % LV Ejection Fraction 2C AL 65.6 % LA Diameter 3.9 cm LA Width 3.5 cm LA Height 5.1 cm RA Width 2.9 cm RA Height 5.3 cm Aorta at Sinotubular Diameter 3.3 cm M-MODE LV Diastolic Diameter MM 5.3 cm 4.2 - 5.9 / 3.9 - 5.3 cm LV Systolic Diameter MM 2.6 cm LV Ejection Fraction MM Teich 82.4 % IVS Diastolic Thickness MM 1.1 cm 0.6 - 1.0 / 0.6 - 0.9 cm IVS Systolic Thickness MM 1.6 cm LVPW Diastolic Thickness MM 1.1 cm 0.6 - 1.0 / 0.6 - 0.9 cm LVPW Systolic Thickness MM 1.9 cm RV Diastolic Diameter MM 1.2 cm Aortic Annulus Diameter 3.7 cm LA Ao Ratio MM 1.1 MV E Point Septal Separation 0.4 cm DOPPLER AV Peak Velocity 121.0 cm/s LVOT Peak Velocity 96.0 cm/s AV Area Cont Eq vti 2.8 cm squared AV Area Cont Eq pk 2.7 cm squared MV Area PHT 3.5 cm squared Mitral E to A Ratio 1.2 MV E' Velocity 11.0 cm/s Mitral E to MV E' Ratio 9.3 Mitral E to LV E' Lateral Ratio 7.3 Mitral E to LV E' Septal Ratio 12.8 TV Peak E Velocity 51.0 cm/s Right Atrial Pressure 3.0 mmHg FINDINGS Left Ventricle Normal left ventricular size and systolic function, EF 68 %. No regional wall motion abnormalities. Mild left ventricular hypertrophy. Right Ventricle The right ventricle is normal in size and function. Right Atrium The right atrium is normal in size. Left Atrium The left atrium is normal in size. Mitral Valve Thickened mitral valve. Trace to mild mitral valve regurgitation. Aortic Valve Thickened aortic valve. Tricuspid Valve No gross abnormalities noted Pulmonic Valve Trace pulmonary valve regurgitation. Pericardium Normal pericardium without effusion. Aorta Normal ascending aorta dimension. CONCLUSIONS Normal left ventricular size and systolic function, EF 68 %. No regional wall motion abnormalities. Mild left ventricular hypertrophy. Thickened aortic and mitral valves Trace pulmonary valve regurgitation. Trace to mild mitral valve regurgitation. There is no pericardial effusion. There are no intracardiac masses. No previous study is available for comparison. Dr Radha Duarte MD FACC (Electronically Signed) Final Date: 19 November 2019 10:18 S
[2019-11-19] MEDS: apixaban 5 mg Tablet PO ×2 (08:15→18:06)
[2019-11-19] MEDS: oseltamivir phosphate 75 mg Capsule PO ×2 (08:15→18:39)
[2019-11-19] MEDS: aspirin 81 mg EC Tablet PO (08:15)
--- NOTE | 2019-11-19 10:57 | PM.PN ---
Subjective Subjective: Interval history: This morning patient is getting his echocardiogram, states that his breathing has improved, no fevers, is requiring up to 5 L of oxygen, has intermittent episodes of shortness of breath Vitals/I&O/Wt Last Vital Signs Temp 98.7 F 11/19/19 10:00 Pulse 91 11/19/19 10:00 Resp 15 11/19/19 10:00 BP 139/80 11/19/19 10:00 Pulse Ox 94 11/19/19 08:47 11/18/19 11/19/19 11/19/19 22:59 06:59 14:59 Intake Total 1260 / 5012.667 850 / 5862.667 700 / 700 Output Total 320 / 520 1100 / 1620 560 / 560 Balance 940 / 4492.667 -250 / 4242.667 140 / 140 Weight last 48 hrs Weight 95.708 kg Physical Exam Const: COMMON NORMALS: no apparent distress and oriented x3 HENMT: COMMON NORMALS: normocephalic HEAD & SCALP: normocephalic Neck/C-Spine: COMMON NORMALS: no JVD Resp: COMMON NORMALS: normal respiratory effort, no retractions and no use of accessory muscles AUSCULTATION: wheezes Cardio: COMMON NORMALS: no JVD, regular rate, regular rhythm, S1 normal heart sound and S2 normal heart sound RATE: regular rate RHYTHM: regular rhythm HEART SOUNDS: S1 normal and S2 normal GI: COMMON NORMALS: normal to inspection, nondistended, normoactive bowel sounds, soft to palpation, non-tender, no hepatosplenomegaly, no masses and no bruits PALPATION: Yes soft and Yes no hepatosplenomegaly Extremity: COMMON NORMALS: normal capillary refill, no clubbing, cyanosis or edema, no calf tenderness and no pedal edema Neuro: COMMON NORMALS: oriented x3 Psych: COMMON NORMALS: mental status grossly normal Data : 11/19/19 04:03 11/19/19 04:03 Micro: Microbiology 11/18/19 05:30 Blood Culture - Preliminary Blood NEGATIVE TO DATE 11/18/19 04:48 Blood Culture - Preliminary Blood NEGATIVE TO DATE 11/18/19 17:00 Bacterial Antigens - Final Urine,Voided A&P Assessment and plan (1) Acute respiratory failure with hypoxia and hypercapnia: -Secondary to healthcare associated pneumonia and influenza A with sepsis -Patient did require Levophed for some time in the ER, which has subsequently stopped, patient has responded to 3 L sepsis bolus -Patient did initially require BiPAP in the ER, now on nasal cannula -Clinically patient is septic, with systolic blood pressures in the 90s, respiratory rate in the 20s, has intermittent episodes of respiratory distress Plan: -Admit to ICU -Tamiflu for influenza A -Broad-spectrum antibiotics vancomycin and Zosyn for healthcare associated pneumonia -Urine bacterial antigens, respiratory cultures, viral PCR - Monitor blood pressures, maintain map greater than 65, LR boluses if required, will NICOM machine if required -Nebulizer treatments -Solu-Medrol 40 every 8 hours -BiPAP PRN -Follow blood cultures, urine cultures, urine bacterial antigen, respiratory viral PCR -Patient is DNR/DNI, does not want elective intubation, does not want chest compressions, does not want aggressive interventions, is okay with ICU mission, okay with IV treatments, the reason I admitted to the patient to the ICU is for accurate sepsis management Status: Acute Code(s): J96.01 - Acute respiratory failure with hypoxia; J96.02 - Acute respiratory failure with hypercapnia (2) Atrial fibrillation with RVR: -Patient had A. 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 [place] -Denies a history of DVTs or PEs Plan: -Telemetry monitoring -Continue Eliquis -Continue metoprolol 25 twice daily -We will put PRN metoprolol pushes to control heart rate once patient gets over sepsis Status: Acute Code(s): I48.91 - Unspecified atrial fibrillation (3) NSTEMI (non-ST elevated myocardial infarction): -Likely supply demand ischemia from respiratory failure -No acute ST-T wave changes -Did have chest pain this morning -No chest pain now Plan: -Aspirin, statin, PRN nitro -Echocardiogram ordered -Telemetry monitoring Status: Acute Code(s): I21.4 - Non-ST elevation (NSTEMI) myocardial infarction (4) Influenza A: Status: Acute Code(s): J10.1 - Influenza due to other identified influenza virus with other respiratory manifestations (5) HCAP (healthcare-associated pneumonia): Status: Acute Code(s): J18.9 - Pneumonia, unspecified organism (6) Squamous cell lung cancer: -Is supposed to see Dr. 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 Shannon for a PET scan and further evaluation -CT angiogram was ordered to rule out pulmonary embolism given cancer diagnosis, and history of shortness of breath Status: Acute Qualifiers: Laterality: unspecified laterality Qualified Code(s): C34.90 - Malignant neoplasm of unspecified part of unspecified bronchus or lung Code(s): C34.90 - Malignant neoplasm of unspecified part of unspecified bronchus or lung (7) Panlobular emphysema: Status: Acute Code(s): J43.1 - Panlobular emphysema (8) Essential (primary) hypertension: Status: Acute Code(s): I10 - Essential (primary) hypertension (9) Rheumatoid arthritis, seropositive, multiple sites: Status: Acute Code(s): M05.79 - Rheumatoid arthritis with rheumatoid factor of multiple sites without organ or systems involvement Attestations Medical Necessity Statement*: Patient requires hospitalization for acute respiratory failure Coding Level of Care Code Acute Edge Stripper for [facility] Diagnoses Acute respiratory failure with hypoxia and hypercapnia J96.01; J96.02 Atrial fibrillation with RVR I48.91 NSTEMI (non-ST elevated myocardial infarction) I21.4 Influenza A J10.1 HCAP (healthcare-associated pneumonia) J18.9 Squamous cell lung cancer C34.90 Laterality: unspecified laterality Panlobular emphysema J43.1 Essential (primary) hypertension I10 Rheumatoid arthritis, seropositive, multiple sites M05.79
[2019-11-19] MEDS: metoprolol tartrate 25 mg Tablet PO ×2 (12:12→18:06)
[2019-11-19] MEDS: tamsulosin 0.4 mg Capsule PO (18:06)
[2019-11-19] MEDS: finasteride 5 mg Tablet PO (18:06)
--- NOTE | 2019-11-19 19:45 | PC.NURSE ---
bedside report rcvd at this time pt sitting up in bed visiting c family. vss per cm. no distress noted. christophe stark.
--- NOTE | 2019-11-19 20:46 | PC.NURSE ---
oob per self to bsc. assisted back to bed , ecnouraged call light use. denies needs , agrees to use call light. assessment per flowsheet. christophe stark.
[2019-11-19] MEDS: atorvastatin 40 mg Tablet PO (21:04)
[2019-11-20] VITALS (17 sets, daily range): BP systolic 147–164; BP diastolic 79–99; PULSE 78–91; RESP 16–30; TEMP 35.9–37; O2SAT 92–95
[2019-11-20] MEDS: ipratropium-albuterol 3 mL Neb INHALATION ×6 (01:04→20:58)
[2019-11-20 03:33] LABS: Alanine Aminotransferase 9 U/L (0-41); Albumin Level 2.5 g/dL (3.5-5.2); Alkaline Phosphatase 85 IU/L (40-130); Anion Gap 13.8 (5-19); Aspartate Amino Transferase 16 U/L (0-40); Blood Urea Nitrogen 17 mg/dL (8-23); Calcium 9.7 mg/dL (8.5-10.5); Carbon Dioxide 23 mmol/L (22-29); Chloride 101 mmol/L (98-107); Globulin 3.7 g/dL (1.3-4.6); Glucose 302 mg/dL (65-115); Magnesium 1.7 mg/dL (1.7-2.3); Phosphorus 2.4 mg/dL (2.5-4.5); Potassium 3.8 mmol/L (3.5-5.1); Sodium 134 mmol/L (136-145); Total Bilirubin 0.4 mg/dL (0.15-1.2); Total Protein 6.2 g/dL (6.6-8.7); Vancomycin Trough 9.9 ug/mL (10-15)
[2019-11-20 03:35] LABS: Basophils % 0.1 %; Eosinophils % 0.1 %; Hematocrit 43.2 % (42.0-52.0); Hemoglobin 14.3 g/dL (11.7-16.6); Lymphocytes # 0.2 10^3/uL (0.8-4.8); Lymphocytes % 2.1 %; Mean Corpuscular HGB Conc 33.1 g/dL (30.0-36.0); Mean Corpuscular Hemoglobin 29.1 pg (28.0-34.0); Mean Corpuscular Volume 87.8 fL (80-94); Monocytes # 0.4 10^3/uL (0.2-0.9); Monocytes % 3.5 %; Neutrophils # 9.7 10^3/uL (1.8-7.7); Neutrophils % 93.7 %; Nucleated Red Blood Cells % 0 %; Platelet Count 168 10^3/cmm (130-400); Red Blood Count 4.92 10^6/uL (4.1-5.3); Red Cell Distribution Width 12.9 % (12.1-15.1); White Blood Count 10.4 10^3/uL (4.0-10.0)
[2019-11-20] MEDS: piperacillin-tazobactam 3.375 GM in sodium chloride 0.9% (plus) 50 ML IV ×3 (04:33→20:54)
[2019-11-20] MEDS: apixaban 5 mg Tablet PO ×2 (08:57→18:06)
[2019-11-20] MEDS: metoprolol tartrate 25 mg Tablet PO ×2 (08:57→18:06)
[2019-11-20] MEDS: oseltamivir phosphate 75 mg Capsule PO ×2 (08:57→18:07)
[2019-11-20] MEDS: aspirin 81 mg EC Tablet PO (08:57)
--- NOTE | 2019-11-20 11:06 | PC.RESP ---
Patient given information on Pulmonary Rehab.
[2019-11-20] MEDS: fluticasone nasal spray 16gm Btl 1 SPRAY INTRANASAL (12:52)
[2019-11-20] MEDS: ascorbic acid 500 mg Tablet PO (12:53)
[2019-11-20] MEDS: cholecalciferol (vitamin D3) 1,000 unit Tablet 2000 UNIT PO (12:53)
[2019-11-20] MEDS: losartan 50 mg Tablet PO (12:54)
[2019-11-20] MEDS: hydroCHLOROthiazide 25 mg Tablet PO (12:55)
[2019-11-20] MEDS: cyclobenzaprine 10 mg Tablet PO ×2 (15:57→20:55)
--- NOTE | 2019-11-20 16:48 | PM.PN ---
Subjective Subjective: Interval history: This morning patient was examined in the ICU, states that he is doing better, his appointment with oncology was today which he unfortunately will miss, no lightheadedness, no dizziness, no nausea, no vomiting Vitals/I&O/Wt Last Vital Signs Temp 97.3 F L 11/20/19 16:00 Pulse 90 11/20/19 16:00 Resp 16 11/20/19 16:00 BP 163/86 11/20/19 16:00 Pulse Ox 92 11/20/19 16:00 11/20/19 11/20/19 11/20/19 06:59 14:59 22:59 Intake Total 1050 / 3000 170 / 170 Output Total 800 / 1960 Balance 250 / 1040 170 / 170 Physical Exam Const: COMMON NORMALS: no apparent distress and oriented x3 HENMT: COMMON NORMALS: normocephalic HEAD & SCALP: normocephalic Neck/C-Spine: COMMON NORMALS: no JVD Resp: COMMON NORMALS: normal respiratory effort, no retractions, no use of accessory muscles and clear to auscultation bilaterally AUSCULTATION: clear to auscultation bilaterally Cardio: COMMON NORMALS: no JVD, regular rate, regular rhythm, S1 normal heart sound and S2 normal heart sound RATE: regular rate RHYTHM: regular rhythm HEART SOUNDS: S1 normal and S2 normal GI: COMMON NORMALS: normal to inspection, nondistended, normoactive bowel sounds, soft to palpation, non-tender, no hepatosplenomegaly, no masses and no bruits PALPATION: Yes soft and Yes no hepatosplenomegaly Extremity: COMMON NORMALS: normal capillary refill, no clubbing, cyanosis or edema, no calf tenderness and no pedal edema Neuro: COMMON NORMALS: oriented x3 Psych: COMMON NORMALS: mental status grossly normal Data : 11/20/19 03:12 11/20/19 03:12 Micro: Microbiology 11/18/19 17:00 Urine Culture - Final Urine,Clean Catch 11/18/19 19:04 MRSA Culture - Final Nose A&P Assessment and plan (1) Acute respiratory failure with hypoxia and hypercapnia: -Secondary to healthcare associated pneumonia and influenza A with sepsis -Patient did require Levophed for some time in the ER, which has subsequently stopped, patient has responded to 3 L sepsis bolus -Patient did initially require BiPAP in the ER, now on nasal cannula -Clinically patient sepsis has resolved, respiratory distress has resolved Plan: -Moved to the general medical floors, -Tamiflu for influenza A -Broad-spectrum antibiotics vancomycin and Zosyn for healthcare associated pneumonia -Urine bacterial antigens, respiratory cultures, viral PCR -Nebulizer treatments -Solu-Medrol 40 every 8 hours -BiPAP PRN -Follow blood cultures, urine cultures, urine bacterial antigen, respiratory viral PCR -Patient is DNR/DNI, does not want elective intubation, does not want chest compressions, does not want aggressive interventions, is okay with ICU mission, okay with IV treatments, the reason I admitted to the patient to the ICU is for accurate sepsis management Status: Acute Code(s): J96.01 - Acute respiratory failure with hypoxia; J96.02 - Acute respiratory failure with hypercapnia (2) Atrial fibrillation with RVR: -Patient had A. 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 patternmaker in [place] -Denies a history of DVTs or PEs Plan: -Telemetry monitoring -Continue Eliquis -Continue metoprolol 25 twice daily Status: Acute Code(s): I48.91 - Unspecified atrial fibrillation (3) NSTEMI (non-ST elevated myocardial infarction): -Likely supply demand ischemia from respiratory failure -No acute ST-T wave changes -Did have chest pain this morning -No chest pain now Plan: -Aspirin, statin, PRN nitro -Echocardiogram ordered -Telemetry monitoring Status: Acute Code(s): I21.4 - Non-ST elevation (NSTEMI) myocardial infarction (4) Influenza A: Status: Acute Code(s): J10.1 - Influenza due to other identified influenza virus with other respiratory manifestations (5) HCAP (healthcare-associated pneumonia): Status: Acute Code(s): J18.9 - Pneumonia, unspecified organism (6) Squamous cell lung cancer: -Is supposed to see Dr. 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 Shannon for a PET scan and further evaluation -CT angiogram was ordered to rule out pulmonary embolism given cancer diagnosis, and history of shortness of breath Status: Acute Qualifiers: Laterality: unspecified laterality Qualified Code(s): C34.90 - Malignant neoplasm of unspecified part of unspecified bronchus or lung Code(s): C34.90 - Malignant neoplasm of unspecified part of unspecified bronchus or lung (7) Panlobular emphysema: Status: Acute Code(s): J43.1 - Panlobular emphysema (8) Essential (primary) hypertension: Status: Acute Code(s): I10 - Essential (primary) hypertension (9) Rheumatoid arthritis, seropositive, multiple sites: Status: Acute Code(s): M05.79 - Rheumatoid arthritis with rheumatoid factor of multiple sites without organ or systems involvement Attestations Medical Necessity Statement*: She requires hospitalization, for acute respiratory failure Coding Level of Care Code Acute Store Planner for [facility] Fwd Diagnoses Acute respiratory failure with hypoxia and hypercapnia J96.01; J96.02 Atrial fibrillation with RVR I48.91 NSTEMI (non-ST elevated myocardial infarction) I21.4 Influenza A J10.1 HCAP (healthcare-associated pneumonia) J18.9 Squamous cell lung cancer C34.90 Laterality: unspecified laterality Panlobular emphysema J43.1 Essential (primary) hypertension I10 Rheumatoid arthritis, seropositive, multiple sites M05.79
[2019-11-20] MEDS: finasteride 5 mg Tablet PO (18:06)
[2019-11-20] MEDS: tamsulosin 0.4 mg Capsule PO (18:07)
[2019-11-20] MEDS: atorvastatin 40 mg Tablet PO (20:55)
[2019-11-21] VITALS (18 sets, daily range): BP systolic 147–162; BP diastolic 81–90; PULSE 76–87; RESP 18–20; TEMP 36.4–36.5; O2SAT 88–95
[2019-11-21] MEDS: ipratropium-albuterol 3 mL Neb INHALATION ×5 (00:11→15:10)
[2019-11-21] MEDS: piperacillin-tazobactam 3.375 GM in sodium chloride 0.9% (plus) 50 ML IV (05:14)
[2019-11-21 05:47] LABS: Basophils % 0.1 %; Hematocrit 43.9 % (42.0-52.0); Hemoglobin 14.7 g/dL (11.7-16.6); Lymphocytes # 0.3 10^3/uL (0.8-4.8); Mean Corpuscular HGB Conc 33.5 g/dL (30.0-36.0); Mean Corpuscular Hemoglobin 28.2 pg (28.0-34.0); Mean Corpuscular Volume 84.3 fL (80-94); Mean Platelet Volume 9.7 fL (7.4-10.4); Monocytes # 0.4 10^3/uL (0.2-0.9); Monocytes % 3.8 %; Neutrophils # 9.5 10^3/uL (1.8-7.7); Neutrophils % 91.9 %; Nucleated Red Blood Cells % 0 %; Platelet Count 159 10^3/cmm (130-400); Red Blood Count 5.21 10^6/uL (4.1-5.3); Red Cell Distribution Width 12.8 % (12.1-15.1); White Blood Count 10.3 10^3/uL (4.0-10.0)
[2019-11-21 06:08] LABS: Alanine Aminotransferase 12 U/L (0-41); Albumin Level 2.8 g/dL (3.5-5.2); Alkaline Phosphatase 98 IU/L (40-130); Anion Gap 16.1 (5-19); Aspartate Amino Transferase 19 U/L (0-40); Blood Urea Nitrogen 23 mg/dL (8-23); Calcium 10.2 mg/dL (8.5-10.5); Carbon Dioxide 24 mmol/L (22-29); Chloride 101 mmol/L (98-107); Globulin 3.7 g/dL (1.3-4.6); Glucose 253 mg/dL (65-115); Magnesium 1.7 mg/dL (1.7-2.3); Potassium 4.1 mmol/L (3.5-5.1); Sodium 137 mmol/L (136-145); Total Bilirubin 0.5 mg/dL (0.15-1.2); Total Protein 6.5 g/dL (6.6-8.7)
[2019-11-21] MEDS: cholecalciferol (vitamin D3) 1,000 unit Tablet 2000 UNIT PO (08:02)
[2019-11-21] MEDS: ascorbic acid 500 mg Tablet PO (08:03)
[2019-11-21] MEDS: cyclobenzaprine 10 mg Tablet PO (08:03)
[2019-11-21] MEDS: aspirin 81 mg EC Tablet PO (08:03)
[2019-11-21] MEDS: apixaban 5 mg Tablet PO (08:03)
[2019-11-21] MEDS: losartan 50 mg Tablet PO (08:03)
[2019-11-21] MEDS: oseltamivir phosphate 75 mg Capsule PO (08:03)
[2019-11-21] MEDS: metoprolol tartrate 25 mg Tablet PO (08:03)
[2019-11-21] MEDS: hydroCHLOROthiazide 25 mg Tablet PO (08:04)
[2019-11-21] MEDS: fluticasone nasal spray 16gm Btl 1 SPRAY INTRANASAL (08:05)
--- NOTE | 2019-11-21 09:50 | PC.SOCIAL ---
IMM Update Pg 2 of IMM given and explained to patient who verbalized understanding. Signed, Dated, and timed, and placed in chart. Copy provided to patient.
[2019-11-21] MEDS: lanolin oint 7 gm 1 APPLIC TOPICAL (10:09)
--- NOTE | 2019-11-21 12:51 | P.DS_ITS ---
Discharge Providers Date of Admission: 11/18/19 09:43 Date of Discharge: November 21, 2019 Attending Provider at Admission: Beto Jolley MD Attending Provider at Discharge: Beto Jolley MD Primary Care Provider: Jerome Steinberg MD Diagnoses at Discharge Discharge Diagnosis (1) Acute respiratory failure with hypoxia and hypercapnia: Status: Acute (2) Atrial fibrillation with RVR: Status: Acute (3) NSTEMI (non-ST elevated myocardial infarction): Status: Acute (4) Influenza A: Status: Acute (5) HCAP (healthcare-associated pneumonia): Status: Acute (6) Squamous cell lung cancer: Status: Acute Qualifiers: Laterality: unspecified laterality Qualified Code(s): C34.90 - M alignant neoplasm of unspecified part of unspecified bronchus or lung (7) Panlobular emphysema: Status: Acute (8) Essential (primary) hypertension: Status: Acute (9) Rheumatoid arthritis, seropositive, multiple sites: Status: Acute Reason for Visit Reason for Visit: Reason For Visit: short of breath Hospital Course Discharge Summary: damien Grimaldo is a 69 year old male with a past medical history of COPD 3 L oxygen dependent, panlobular emphysema, atrial fibrillation on Eliquis, BPH, essential hypertension, with recent history of 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 Patient was admitted to the intensive care unit for acute respiratory failure with hypoxia and hypercapnia and sepsis secondary to healthcare pneumonia and influenza A. Patient received broad-spectrum antibiotics, Tamiflu, IV fluids, IV steroid therapy, inhaler therapy, oxygen therapy and clinically improved. Patient respiratory cultures and blood cultures so far remain unremarkable. Patient was de-escalated to the general medical floors where he did well for the next 24 hours. Patient was discharged on a steroid taper, 4 to 5 L of oxygen throughout the day, inhaler therapy, Levaquin for 7 remaining days, Tamiflu for 2 remaining days, and a close follow-up with his primary care physician in 1 week. In addition for his newly diagnosed lung cancer, patient was advised to follow-up with Dr. Wilde in 1 to 2 days. Physical Exam Const: COMMON NORMALS: no apparent distress and oriented x3 HENMT: COMMON NORMALS: normocephalic HEAD & SCALP: normocephalic Neck/C-Spine: COMMON NORMALS: no JVD Resp: COMMON NORMALS: normal respiratory effort, no retractions, no use of accessory muscles and clear to auscultation bilaterally AUSCULTATION: clear to auscultation bilaterally Cardio: COMMON NORMALS: no JVD, regular rate, regular rhythm, S1 normal heart sound and S2 normal heart sound RATE: regular rate RHYTHM: regular rhythm HEART SOUNDS: S1 normal and S2 normal GI: COMMON NORMALS: normal to inspection, nondistended, normoactive bowel sounds, soft to palpation, non-tender, no hepatosplenomegaly, no masses and no bruits PALPATION: Yes soft and Yes no hepatosplenomegaly Extremity: COMMON NORMALS: normal capillary refill, no clubbing, cyanosis or edema, no calf tenderness and no pedal edema Neuro: COMMON NORMALS: oriented x3 Psych: COMMON NORMALS: mental status grossly normal Discharge Data Data Completed and Pending: Completed Studies During Hospitalization Category Date Time Status CT angio chest PE protcl [id number] Stat Cat Scan 11/18/19 09:38 Completed XR chest 1V deanne ble [id number] Stat Exams 11/18/19 04:15 Completed CV echo complete* [id number] Routine Ultrasound 11/19/19 06:00 Completed Pending at discharge Category Date Time Status Blood Culture Sta t Lab 11/18/19 05:30 Results Respiratory Viral Panel PCR Routine Lab 11/20/19 19:50 Ordered Sputum Culture an d Gram Stain Stat Lab 11/18/19 11:20 Uncollected Labs from last 24 hours 11/21/19 11/21/19 05:34 05:34 WBC 10.3 H RBC 5.21 Hgb 14.7 Hct 43.9 MCV 84.3 MCH 28.2 MCHC 33.5 RDW 12.8 Plt Count 159 MPV 9.7 Neut % (Auto) 91.9 Lymph % (Auto) 3.0 Gregg % (Auto) 3.8 Eos % (Auto) 0.0 Baso % (Auto) 0.1 Neut # (Auto) 9.5 H Lymph # (Auto) 0.3 L Gregg # (Auto) 0.4 Eos # (Auto) 0.0 Baso # (Auto) 0.0 Nucleated RBC % (a uto) 0 Nucleated RBCs # 0.0 Sodium 137 Potassium 4.1 Chloride 101 Carbon Dioxide 24 Anion Gap 16.1 BUN 23 Creatinine 1.2 Glucose 253 H Calcium 10.2 Phosphorus 3.0 Magnesium 1.7 Total Bilirubin 0.5 AST 19 ALT 12 Alkaline Phosphata se 98 Total Protein 6.5 L Albumin 2.8 L Globulin 3.7 Vitals: Last Vital Signs Temp 97.7 F 11/21/19 12:38 Pulse 81 11/21/19 12:38 Resp 20 H 11/21/19 12:38 BP 161/88 11/21/19 12:38 Pulse Ox 92 11/21/19 12:38 Discharge Plan Discharge Patient Disposition: Home, Self-Care Condition: Stable Prescriptions: New oseltamivir 75 mg Capsule 75 mg PO BID 2 Days Qty: 4 RF: 0 metoprolol tartrate 25 mg Tablet 25 mg PO BID 30 Days Qty: 60 RF: 0 Levaquin 750 mg tablet 750 mg PO DAILY 7 Days Qty: 7 RF: 0 prednisone 10 mg tablet See Rx Instructions .ROUTE .COMPLEX Qty: 1,000 RF: 0 Continued tamsulosin 0.4 mg capsule 0.4 mg PO DAILY RF: 0 finasteride 5 mg tablet 5 mg PO DAILY RF: 0 hydrochlorothiazide 25 mg tablet 25 mg PO DAILY RF: 0 Symbicort 160-4.5 mcg/actuation HFA aerosol inhaler 2 puff INHALATION BID RF: 0 cyclobenzaprine 10 mg tablet 10 mg PO TID RF: 0 albuterol sulfate 2.5 mg /3 mL (0.083 %) Solution For Nebulization 2.5 mg INHALATION QID PRN (Reason: Shortness Of Breath) RF: 0 benzonatate 200 mg Capsule 200 mg PO TID PRN (Reason: Cough) RF: 0 Calcium 600 600 mg calcium (1,500 mg) Tablet 600 mg PO DAILY RF: 0 Vitamin C 500 mg Tablet 500 mg PO DAILY RF: 0 Nitrostat 0.4 mg Tablet, Sublingual 0.4 mg SUBLINGUAL Q5M PRN (Reason: Chest Pain) RF: 0 Vitamin D3 2,000 unit Tablet 2,000 unit PO DAILY RF: 0 Eliquis 5 mg Tablet 5 mg PO BID RF: 0 fluticasone propionate [Flonase Allergy Relief] 50 mcg/actuation [place],Suspension 1 spray INTRANASAL DAILY RF: 0 Spiriva Respimat 2.5 mcg/actuation Mist 1 inh INHALATION DAILY RF: 0 losartan 100 mg Tablet 50 mg PO DAILY RF: 0 Discontinued prednisone 20 mg tablet 20 mg PO DAILY PRN (Reason: shortness of breath) Qty: 30 RF: 0 metoprolol tartrate 25 mg Tablet 12.5 mg PO BID RF: 0 doxycycline hyclate 100 mg tablet 100 mg PO BID 10 Days Qty: 20 RF: 0 Discharge Orders: Discharge Order (Routine); Ordered 11/21/19 Ordered By: Beto Jolley Referrals: Mark Wilde MD [Hospitalist] - 11/23/19 10:00 am (needs appointment with Dr. Shiva carey, newly diagnosed lung cancer, spoke to Dr. wilde willing to accomadate) Discharge Diet: Advance as tolerated Discharge Activity: Resume usual activity Patient Instructions: Metoprolol (By mouth), Prednisone (By mouth), Levofloxacin (By mouth), Oseltamivir (By mouth), Myocardial Infarction (DC), Atrial Fibrillation (DC), Influenza (DC), Bacterial Pneumonia (DC) Activity Restrictions/Additional Instructions: -Please follow-up with Dr. Wilde in the next 1 to 2 days -Take antibiotics as prescribed -Take steroids as prescribed -Take Tamiflu as prescribed -Drink plenty of electrolyte balance fluids -Follow-up with primary care in 1 week Discharge Attestations Time Spent in Discharge Care*: less than 30 min Quality Metrics Clinical Quality Measures During this hospital stay, did patient experience: None Coding Level of Care Code Acute [employer] for [employer] Fwd Diagnoses Acute respiratory failure with hypoxia and hypercapnia J96.01; J96.02 Atrial fibrillation with RVR I48.91 NSTEMI (non-ST elevated myocardial infarction) I21.4 Influenza A J10.1 HCAP (healthcare-associated pneumonia) J18.9 Squamous cell lung cancer C34.90 Laterality: unspecified laterality Panlobular emphysema J43.1 Essential (primary) hypertension I10 Rheumatoid arthritis, seropositive, multiple sites M05.79
== END 2019-11-21 15:45 | disposition home or self-care (01) | DRG 871 ==
LOC: ER 06:16 → ICU 11:12 → MEDSURG 11-20 11:00
PROVIDERS: Emergency Medicine; Admitting Provider Family Medicine; Emergency Provider Family Medicine; Family Provider Internal Medicine; PCP Internal Medicine; Visit Provider Family Medicine
DX: A41.9 Sepsis, unspecified organism (principal); J96.01 Acute respiratory failure with hypoxia; I21.4 Non-ST elevation (NSTEMI) myocardial infarction; J18.9 Pneumonia, unspecified organism; J96.02 Acute respiratory failure with hypercapnia; C34.90 Malignant neoplasm of unspecified part of unspecified bronchus or lung; I48.91 Unspecified atrial fibrillation; J43.1 Panlobular emphysema; I10 Essential (primary) hypertension; M05.79 Rheumatoid arthritis with rheumatoid factor of multiple sites without organ or systems involvement; J10.1 Influenza due to other identified influenza virus with other respiratory manifestations; I95.9 Hypotension, unspecified; Z66 Do not resuscitate; Z87.891 Personal history of nicotine dependence; Z79.51 Long term (current) use of inhaled steroids
CPT/HCPCS: 12345; 36415; 36600; 71045; 71275; 80053; 80202; 81001; 82803; 83605; 83690; 83735; 83880; 84100; 84145; 84443; 84484; 85025; 85378; 85610; 85651; 86140; 86403; 87040; 87086; 87641; 87804; 93005; 93306; 94640; 94660; 94664; 96375; 97161; 97165; 99284; J0456; J0696; J2270; J2405; J2543; J2920; J2930; J3370; J3475; J3490; J7030; J7050; J7614; J7644; Q9967

== ENCOUNTER 2019-11-23 09:57 | Outpatient (CLI) | payer OTHER, MEDICARE, SELFPAY ==
--- NOTE | 2019-11-23 13:57 | ONC CON_ITS ---
Dr. Shannon New Patient Note Patient: Giuseppe Girmaldo Unit #: [id number]: [id number] Dicatated By: Mark Shannon M.D.Date of Visit: Nov 23, 2019 Onc MED New Patient/Consult Referring Physician: Dr. KEIRA RUIZ M.D. Chief Complaint: Lung cancer. 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 This patient has longstanding COPD. Approximately 6 weeks ago he was seen for a scheduled follow-up visit at [facility] and he was found to have a mass on chest x-ray. His chest CT on 10/12/2019 showed a subpleural spiculated nodule in the right lower lobe medially abutting the inferior hilum measuring approximately 2.9 x 2.3 cm. The appearance was suspicious for neoplasm. This was new from previous studies. There were multiple subcentimeter noncalcified nodules in both lungs. There was prominent new right hilar and superior mediastinal lymphadenopathy. The largest measured up to 3.1 cm. A lytic lesion in the T11 vertebral body measuring 8 mm was also new. A 2.8 cm low-attenuation lobulated lesion in the pancreatic tail appeared unchanged. Further evaluation with PET/CT on 10/21/2019 showed 3.7 x 1.9 cm right lower lobe subpleural mass with SUV 13.6, consistent with primary malignancy. There was extensive local metastatic disease including an inferior right hilar mass measuring 3.0 cm with SUV 11.4. Additional malignant mediastinal nodes were noted in the subcarinal, left hilar, prevascular, subaortic, right paratracheal, left paraesophageal, left paratracheal, and anterior mediastinal territories. Also noted was left cervical level 4 and supraclavicular adenopathy as well as portal and gastrohepatic ligament, right retrocrural, retrocaval, and bilateral periaortic adenopathy. A unifocal hepatic metastatic lesion measured 1.3 cm. There were multiple sites of osseous metastatic disease including the left scapula, sternum, T11 vertebral body, left iliac bone, and superior left acetabulum. These were noted to be purely lytic lesions. He was referred to Dr. Ruiz and he underwent bronchoscopy/EBUS on 10/27/2019. There was no evidence of endobronchial lesion. Transbronchial needle aspiration biopsy of station 4R and station 7 lymph nodes showed poorly differentiated non-small cell carcinoma with an IHC profile consistent with squamous cell carcinoma. He is seen now for further management of the lung cancer. He reports that his energy is gone. He has very minimal activity. His ECOG score is 3. His appetite is poor. His weight is down more than 25 pounds. He does not have fever or night sweats. He has had some sinus drainage, sometimes with bloody nasal discharge. He says his breathing is terrible. He is now oxygen dependent. He has productive cough, but no hemoptysis. He has been having sharp pain in the mid chest area. He does not have nausea or acid reflux symptoms. He is having constipation. His urination is not as strong, but bladder function remains adequate. He has joint pain, mainly in the hands and knees. He has some new pain in the mid to upper back and he has some chronic lower back pain. He does not complain of headache. He sometimes has dizziness. He has no numbness/paresthesia or other focal neurologic symptoms. Past Medical History: His medical history includes atrial fibrillation, benign prostatic hypertrophy, chronic obstructive pulmonary disease, hypertension, and rheumatoid arthritis. Past Surgical History: He undewent bronchoscopy/EBUS with transbronchial biopsy on 10/27/2019. His other surgical/procedural history includes carpal tunnel release, cholecystectomy, eye surgery for obstructed tear ducts, right total knee arthroplasty, shoulder surgery, and colonoscopy in 2017. Medications: predniSONE 1 (20 mg) Tablet Oral q 2 days Allergies: No Known Allergies. Social History: Mr. Grimaldo is . He has a history of smoking for approximately 40 years, up to 2 packs of cigarettes daily. He quit smoking in 1999. He had at least moderate to heavy alcohol use in the past, but he quit drinking in 1982. Family History: Father of suicide. His mother had angina. One sister with complications of dementia and another sister has dementia. Review Of Symptoms: Constitutional - He has not had any energy the last few weeks. He is mainly sedentary. His appetite is poor and his weight is down. No fever, chills, hot flashes, or night sweats. ECOG score is 3, Eyes - He has had change in his vision, ENMT - No hearing loss or tinnitus. He has sinus congestion/drainage, sometimes with bloody nasal discharge. He has had sore throat. No mouth sores. He sometimes has difficulty swallowing, Hematologic/Lymphatic - He bruises easily, Respiratory - He has shortness of breath and is wearing continuos oxygen. He has a productive cough. No hemoptysis, Cardiovascular - He has sharp chest pains. No palpitations, Gastrointestinal - No nausea or vomiting. No heartburn or acid reflux. He has some constipation. No blood in the stool or black stools, Genitourinary (M) - His urination is not as strong. He has no dysuria or hematuria and no urgency or incontinence, Musculoskeletal - He has pain from his rheumatoid arthritis. Most of his joint pain is in his knees and hands. He has some new pain in the upper back and some chronic pain in the lower back area, Integumentary - No skin complications, Neurologic - No headache. He sometimes gets dizzy and light-headed. No numbness/paresthesias or other focal neurologic symptoms, Psychiatric - No anxiety or depression. He does not sleep well at night. Vital Signs: Performed on Nov 23, 2019 11:00: 10, 7, 27.76, 2.10 sq.m, 71 in, 94 % (LOW), 82 /min, 18 /min, 101/59 mm(hg), 98.4 F, and 199.0 lbs (HIGH). Physical Examination: Constitutional - He appears generally weak and chronically ill, Eyes - Sclerae nonicteric. Conjunctivae clear, ENMT - No lesions noted in the oral cavity, Neck - No mass or thyromegaly, Hematologic/Lymphatic - No cervical, clavicular, or axillary adenopathy, Respiratory - Lungs sound clear with diminished air movement bilaterally, Cardiovascular - Heart rhythm is irregular. The rate is controlled. There is no murmur, gallop, or rub noted, Abdomen - Soft and non-tender. Liver and spleen are not enlarged. There is no abdominal mass or ascites noted and there is no inguinal adenopathy, Back/Spine - No spine or CVA tenderness noted, Extremities - No clubbing or edema. He has extensive purpura and ecchymoses, Integumentary - No rashes. No suspicious skin lesions noted, Neurologic - No focal neurologic deficits noted. Impression: 1. 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 2. He has underlying COPD. He is now oxygen dependent. 3. He has poor performance status (ECOG 3). His other medical illnesses include: 4. Hypertension. 5. Rheumatoid arthritis. 6. Degenerative arthritis. 7. Benign prostatic hypertrophy. Plan: I reviewed the findings on the imaging studies and the pathology results. We discussed the clinical implications. He has advanced non-small cell lung cancer, and he has poor performance status. We discussed the fact that this disease is not amenable to surgery and that any role for radiation would be limited and only for palliation of symptoms. Due to his poor performance status, he is not a very suitable candidate for chemotherapy, and the likelihood of benefit would be low. I did want to get a next generation sequencing study to screen for any possible targeted therapies and to assess his PD-L1 expression, but in this situation I think the best option for treatment will be a trial of immunotherapy. There will be some potential for immune-related toxicities, particularly with his known rheumatoid arthritis, but I do feel that it will be a much better option for him than chemotherapy. At this point I am going to recommend that he continue taking 20 mg of prednisone daily. He will be given a prescription for MSIR and he will be given instructions for a bowel regimen. I will put in a request for a next generation sequencing study and I will then have him start treatment with pembrolizumab at a standard dose of 200 mg by IV infusion every 3 weeks, subject to verification of insurance coverage. In addition, he will be started on treatment with denosumab for the metastatic bone involvement. Signed By: Mark Shannon M.D. <<Signature on File>>
== END 2019-11-23 09:58 | disposition home or self-care (01) ==
PROVIDERS: Family Provider Internal Medicine; PCP Internal Medicine; Referring Provider Internal Medicine Critical Care Medicine; Visit Provider Internal Medicine Medical Oncology
DX: C34.31 Malignant neoplasm of lower lobe, right bronchus or lung (principal); C78.7 Secondary malignant neoplasm of liver and intrahepatic bile duct; C79.51 Secondary malignant neoplasm of bone; J44.9 Chronic obstructive pulmonary disease, unspecified; G89.29 Other chronic pain; M54.5 Low back pain; K59.00 Constipation, unspecified; I48.91 Unspecified atrial fibrillation; N40.0 Benign prostatic hyperplasia without lower urinary tract symptoms; I10 Essential (primary) hypertension; M06.9 Rheumatoid arthritis, unspecified; Z99.81 Dependence on supplemental oxygen; F10.21 Alcohol dependence, in remission; Z79.52 Long term (current) use of systemic steroids; Z79.899 Other long term (current) drug therapy; Z96.651 Presence of right artificial knee joint; Z87.891 Personal history of nicotine dependence
CPT/HCPCS: 99205

== ENCOUNTER 2019-11-27 09:32 | Inpatient (IN) | payer OTHER, MEDICARE, SELFPAY ==
[2019-11-27] VITALS (23 sets, daily range): BP systolic 74–120; BP diastolic 44–79; PULSE 66–168; RESP 15–22; TEMP 36.6; O2SAT 90–97; BMI 27.8
--- NOTE | 2019-11-27 09:39 | ED_ITS ---
Entered by Rhona Matt, acting as scribe for Lev Brenner DO HPI - Chest Pain General: Chief Complaint: Chest Pain Stated Complaint: CHEST PAINS Time Seen by Provider: 11/27/19 09:44 Source: patient and family Mode of arrival: wheelchair Limitations: no limitations History of Present Illness: HPI narrative: 69-year-old male presents emergency room with complaint of rapid heart rate and some chest tightness. As well as some shortness of breath. He has a known history of atrial fibrillation he also has a history of lung CA with mets to the liver and to the thoracic spine. He was recently hospitalized for same. He is on Eliquis and he does take metoprolol for his A. fib he states he is not missed any medications run out or had any dose changes recently. He denies any diaphoresis nausea or vomiting. No fever sweats or chills. 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) Timing of current episode: still present Prior episodes: Yes Onset: during rest Pain location: substernal Pain radiation: neck Severity: moderate Quality: sharp Relieving factors: nothing Exacerbating factors: nothing Context: recent illness Associated symptoms: Reports dyspnea and palpitations; Deny abdominal pain, fever(s), nausea or vomiting Review of Systems Const: Reports: fatigue and malaise; Denies: fever, chills, body aches or change in appetite ENMT: Denies: throat pain, ear pain, nasal discharge or nasal congestion Card: Reports: chest pain, palpitations, irregular heart rhythm and shortness of breath on exertion; Denies: edema or shortness of breath when lying down Resp: Reports: shortness of breath; Denies: productive cough or non-productive cough GI: Denies: abdominal pain, nausea, vomiting, vomiting blood, coffee grounds in vomit, diarrhea, constipation, bloating, blood in stool or black tarry stool : Denies: flank pain, painful urination, urinary frequency or urinary urgency Musc: Denies: joint warmth Skin/Breast: Denies: rash or itching Psych: Denies: sleeping more All/Imm: Denies: acute wheezing PFSH ED PFSH: Medical History BPH with obstruction/lower urinary tract symptoms Chronic obstructive pulmonary disease with (acute) exacerbation Essential (primary) hypertension Keratoacanthoma Lumbar paraspinal muscle spasm Panlobular emphysema Rheumatoid arthritis, seropositive, 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 Thyroid with heterogeneous echotexture determined by ultrasound Surgical History S/P cholecystectomy S/P colonoscopy 2017- REPEAT IN 10 YEARS S/P endoscopic carpal tunnel release S/P eye surgery S/P shoulder surgery Status post right knee replacement Family History Other Aneurysm Arthritis CAD (coronary artery disease) Diabetes Hypertension Social History Smoking and tobacco status: former smoker Quit status (tobacco): has quit using tobacco Year quit tobacco: 1999 - 2PPD x 30 Years Second hand smoke exposure: No Alcohol intake: former Year of sobriety/quit date alcohol: 1999 Former alcohol use details: HEAVY Household members: spouse Housing: House Marital status: service: Yes Current occupational status: retired History of recent travel: No Current gender identity: Male Physical Exam Const: COMMON NORMALS: no apparent distress GENERAL APPEARANCE: cooperative and comfortable ORIENTATION/CONSCIOUSNESS: Yes awake, Yes oriented to person, Yes oriented to place and Yes oriented to time HENMT: COMMON NORMALS: normocephalic, head/scalp atraumatic, hearing grossly normal bilaterally, external ears normal, EAC's normal, TM's normal bilaterally, nasal mucous membranes and turbinates normal, moist oral mucous membranes and oropharynx normal HEAD & SCALP: normocephalic and atraumatic NOSE: nasal mucous membranes and turbinates normal EXTERNAL EAR: Yes external ears normal EXTERNAL AUDITORY CANAL: EAC's normal TYMPANIC MEMBRANE: TM's normal bilaterally Eye: COMMON NORMALS: PERRL, EOMs intact bilaterally, conjunctivae normal and no scleral icterus CONJUNCTIVA: Yes conjunctivae normal PUPIL: Yes PERRL Neck/C-Spine: COMMON NORMALS: full ROM, no lymphadenopathy, supple and no JVD Lymph: LYMPHATIC: no lymphadenopathy noted and no lymphedema noted Resp: COMMON NORMALS: normal respiratory effort, no retractions, no use of accessory muscles and clear to auscultation bilaterally AUSCULTATION: clear to auscultation bilaterally Cardio: COMMON NORMALS: no JVD and no murmurs RATE: tachycardic (140) RHYTHM: abnormal rhythm irregularly irregular GI: COMMON NORMALS: soft to palpation and no hepatosplenomegaly AUSCULTATION: Yes normoactive bowel sounds PALPATION: Yes soft, No tender, No guarding and Yes no hepatosplenomegaly Extremity: COMMON NORMALS: normal to inspection, normal capillary refill, no clubbing, cyanosis or edema, no calf tenderness and no pedal edema Neuro: SENSORIUM/ORIENTATION: Yes oriented to person, Yes oriented to place and Yes oriented to time Skin: COMMON NORMALS: no rashes or lesions noted GENERAL SKIN EXAM: no rashes or lesions noted Course ED course: Initially patient was hypotensive. We did not give him his Cardizem bolus we did titrate him up on Cardizem starting at 5. Continue to remain tachycardic however eventually did get his rate under control. He did not continue to convert to a normal sinus rhythm but his rate was controlled and his symptoms were relieved. We will get a go ahead and admit the patient to the ICU for further rate control medication adjustments I did start him on digoxin with a loading dose of 0.25 done here which will need to be repeated in 6 hours, hospitalist will address this on the inpatient side. Discussed with the family and the patient initially he wanted to leave AMA I was able to convince him not to leave, and to allow us to admit him for further care. Vital Signs: Vital signs: Vital Signs Temperature 97.8 F 11/27/19 09:45 Pulse Rate 74 11/28/19 12:00 Respiratory Rate 19 H 11/28/19 12:00 Blood Pressure 130/53 11/28/19 12:00 Pulse Oximetry 94 11/28/19 09:01 MDM - Chest Pain Lab Data: Labs: Lab Results 11/27/19 11/27/19 11/27/19 Range/Units 09:50 09:50 09:50 WBC 17.4 H (4.0-10.0) 10^3/ uL RBC 5.83 H (4.1-5.3) 10^6/u L Hgb 17.0 H (11.7-16.6) g/dL Hct 52.1 H (42.0-52.0) % MCV 89.4 (80-94) fL MCH 29.2 (28.0-34.0) pg MCHC 32.6 (30.0-36.0) g/dL RDW 13.7 (12.1-15.1) % Plt Count 125 L (130-400) 10^3/c mm MPV 10.2 (7.4-10.4) fL Neut % (Auto) 81.5 % Lymph % (Auto) 3.4 % [place] % (Auto) 13.5 % Eos % (Auto) 0.1 % Baso % (Auto) 0.1 % Neut # (Auto) 14.1 H (1.8-7.7) 10^3/u L Lymph # (Auto) 0.6 L (0.8-4.8) 10^3/u L [place] # (Auto) 2.4 H (0.2-0.9) 10^3/u L Eos # (Auto) 0.0 (0.0-0.8) 10^3/u L Baso # (Auto) 0.0 (0.0-0.1) 10^3/u L Nucleated RBC % (a uto) 0 % Nucleated RBCs # 0.0 /100WBC Sodium 134 L (136-145) mmol/L Potassium 4.1 (3.5-5.1) mmol/L Chloride 93 L (98-107) mmol/L Carbon Dioxide 27 (22-29) mmol/L Anion Gap 18.1 (5-19) BUN 21 (8-23) mg/dL Creatinine 1.7 H (0.7-1.2) mg/dL Glucose 195 H (65-115) mg/dL Calculated Osmolal ity 280 L (285-295) mOsm/k g Calcium 10.9 H (8.5-10.5) mg/dL Total Bilirubin 1.4 H (0.15-1.2) mg/dL AST 37 (0-40) U/L ALT 14 (0-41) U/L Alkaline Phosphata se 133 H (40-130) IU/L Troponin T Baselin e 36 H (0-15) ng/mL Troponin T 120 Min [place] (0-15) ng/mL Delta Troponin T (0-10) ABS# Total Protein 6.5 L (6.6-8.7) g/dL Albumin 2.9 L (3.5-5.2) g/dL Globulin 3.6 (1.3-4.6) g/dL 11/27/19 Range/Units 11:54 WBC (4.0-10.0) 10^3/ uL RBC (4.1-5.3) 10^6/u L Hgb (11.7-16.6) g/dL Hct (42.0-52.0) % MCV (80-94) fL MCH (28.0-34.0) pg MCHC (30.0-36.0) g/dL RDW (12.1-15.1) % Plt Count (130-400) 10^3/c mm MPV (7.4-10.4) fL Neut % (Auto) % Lymph % (Auto) % [place] % (Auto) % Eos % (Auto) % Baso % (Auto) % Neut # (Auto) (1.8-7.7) 10^3/u L Lymph # (Auto) (0.8-4.8) 10^3/u L [place] # (Auto) (0.2-0.9) 10^3/u L Eos # (Auto) (0.0-0.8) 10^3/u L Baso # (Auto) (0.0-0.1) 10^3/u L Nucleated RBC % (a uto) % Nucleated RBCs # /100WBC Sodium (136-145) mmol/L Potassium (3.5-5.1) mmol/L Chloride (98-107) mmol/L Carbon Dioxide (22-29) mmol/L Anion Gap (5-19) BUN (8-23) mg/dL Creatinine (0.7-1.2) mg/dL Glucose (65-115) mg/dL Calculated Osmolal ity (285-295) mOsm/k g Calcium (8.5-10.5) mg/dL Total Bilirubin (0.15-1.2) mg/dL AST (0-40) U/L ALT (0-41) U/L Alkaline Phosphata se (40-130) IU/L Troponin T Baselin e (0-15) ng/mL Troponin T 120 Min [place] 38.15 H (0-15) ng/mL Delta Troponin T 2.15 (0-10) ABS# Total Protein (6.6-8.7) g/dL Albumin (3.5-5.2) g/dL Globulin (1.3-4.6) g/dL Imaging Data^: CXR: Radiologist's impression: [address] [address] XRay Report Signed Patient: Curtis Grimaldo #: [id number] : 8Acct#:[id number] Age/Sex: 69 / MADM Date: 11/27/19 Loc: ERRoom/Bed: Attending Dr: Ordering Provider/Ordering MD: Lev Brenner DO Date of Service: 11/27/19 Procedure(s): XR chest 1V portable [id number] Accession Number(s): [id number] Report Number: [id number] PROCEDURE INFORMATION: Exam: XR Chest, 1 View Exam date and time: 11/27/2019 10:22 AM Age: 69 years old Clinical indication: Cough and dyspnea; Additional info: Dyspnea/cough TECHNIQUE: Imaging protocol: XR of the chest Views: 1 view. COMPARISON: CR XR chest 1V portable [id number] 11/18/2019 4:15 AM FINDINGS: Lungs: Hyperinflation compatible with COPD. No CHF or focal consolidation. Interstitial thickening consistent with fibrosis. Pleural space: Unremarkable. No pleural effusion. No pneumothorax. Heart/Mediastinum: Unremarkable. No cardiomegaly. Bones/joints: No acute findings. XR/XR chest 1V portable [id number] IMPRESSION: No acute findings. Dictated By:Yung Israel MD Signed By:Yung Israel MDSigned Date/Time:11/27/19 1122 Discharge Plan Discharge Patient Disposition: Admitted As Inpatient Admit Provider: Eben Mayers Clinical Impression: Atrial fibrillation with RVR, Squamous cell lung cancer, SOURAV (acute kidney i njury) Condition: Stable Referrals: Jerome Steinberg MD [Primary Care Provider] - Discharge Date/Time: 11/27/19 21:05 Coding Level of Care Code ED Auto Glass Installer for Chg Fwd Exam Problem Focused The documentation recorded by the magedibShaka berg Bridget Annette, accurately reflects the service I personally performed and the decisions made by me, Lev Brenner, Nov 27, 2019 09:32
--- NOTE | 2019-11-27 09:56 | XRR_ITS ---
PROCEDURE INFORMATION: Exam: XR Chest, 1 View Exam date and time: 11/27/2019 10:22 AM Age: 69 years old Clinical indication: Cough and dyspnea; Additional info: Dyspnea/cough TECHNIQUE: Imaging protocol: XR of the chest Views: 1 view. COMPARISON: CR XR chest 1V portable [id number] 11/18/2019 4:15 AM FINDINGS: Lungs: Hyperinflation compatible with COPD. No CHF or focal consolidation. Interstitial thickening consistent with fibrosis. Pleural space: Unremarkable. No pleural effusion. No pneumothorax. Heart/Mediastinum: Unremarkable. No cardiomegaly. Bones/joints: No acute findings. XR/XR chest 1V portable [id number] IMPRESSION: No acute findings.
--- NOTE | 2019-11-27 09:57 | ECG_ITS ---
Measurements Intervals [place] Rate: 140 P: VT: 0 QRS: 77 QRSD: 90 T: 55 QT: 273 QTc: 418 ATRIAL FIBRILLATION WITH RAPID VENTRICULAR RESPONSE MODERATE ST DEPRESSION [0.05+ mV ST DEPRESSION] Compared to ECG 11/18/2019 15:22:42 ST (T wave) deviation now present Sinus rhythm no longer present Myocardial infarct finding no longer present Electronically Signed On 11-27-2019 20:48:51 CDT by Gavino Hay M.D. [id number] f
[2019-11-27 10:04] LABS: Basophils % 0.1 %; Eosinophils % 0.1 %; Hematocrit 52.1 % (42.0-52.0); Lymphocytes # 0.6 10^3/uL (0.8-4.8); Lymphocytes % 3.4 %; Mean Corpuscular HGB Conc 32.6 g/dL (30.0-36.0); Mean Corpuscular Hemoglobin 29.2 pg (28.0-34.0); Mean Corpuscular Volume 89.4 fL (80-94); Mean Platelet Volume 10.2 fL (7.4-10.4); Monocytes # 2.4 10^3/uL (0.2-0.9); Monocytes % 13.5 %; Neutrophils # 14.1 10^3/uL (1.8-7.7); Neutrophils % 81.5 %; Nucleated Red Blood Cells % 0 %; Platelet Count 125 10^3/cmm (130-400); Red Blood Count 5.83 10^6/uL (4.1-5.3); Red Cell Distribution Width 13.7 % (12.1-15.1); White Blood Count 17.4 10^3/uL (4.0-10.0)
[2019-11-27] MEDS: sodium chloride 0.9% 1,000 ML 999 ML IV (10:17)
[2019-11-27 10:19] LABS: Alanine Aminotransferase 14 U/L (0-41); Albumin Level 2.9 g/dL (3.5-5.2); Alkaline Phosphatase 133 IU/L (40-130); Anion Gap 18.1 (5-19); Aspartate Amino Transferase 37 U/L (0-40); Blood Urea Nitrogen 21 mg/dL (8-23); Calcium 10.9 mg/dL (8.5-10.5); Carbon Dioxide 27 mmol/L (22-29); Chloride 93 mmol/L (98-107); Globulin 3.6 g/dL (1.3-4.6); Glucose 195 mg/dL (65-115); Osmolality Calculated 280 mOsm/kg (285-295); Potassium 4.1 mmol/L (3.5-5.1); Sodium 134 mmol/L (136-145); Total Bilirubin 1.4 mg/dL (0.15-1.2); Total Protein 6.5 g/dL (6.6-8.7)
[2019-11-27 10:20] LABS: Troponin(5th) Baseline 36 ng/mL (0-15)
--- NOTE | 2019-11-27 10:20 | PC.NURSE ---
PHYSICAL ASSESSMENT Chief Complaint: Short of breath GENERAL / NEURO / PSYCH: Alert and oriented x 4 AUNG COMA SCORE: 15 HEENT: No facial asymmetry noted. Mucous membranes are pink. RESPIRATORY: Lung sounds clear and equal. CVS: Capillary refill less than 2 seconds. Pulse rate 150-160. GI / : Abdomen soft and nontender and normal bowel sounds. SKIN: Skin intact. Skin is warm and dry. Normal skin turgor.
[2019-11-27] MEDS: sodium chloride 0.9% 500 ML 999 ML IV (11:15)
--- NOTE | 2019-11-27 11:57 | ECG_ITS ---
Measurements Intervals [place] Rate: 115 P: VA: 0 QRS: 64 QRSD: 88 T: 42 QT: 296 QTc: 410 ATRIAL FIBRILLATION WITH RAPID VENTRICULAR RESPONSE ABNORMAL RHYTHM ECG Compared to ECG 11/18/2019 15:22:42 Sinus rhythm no longer present Myocardial infarct finding no longer present Electronically Signed On 11-27-2019 20:52:59 CDT by Gavino Hay M.D. [id number]
[2019-11-27 12:20] LABS: Troponin 5 2HR 38.15 ng/mL (0-15); Troponin 5 2HR Delta 2.15 ABS# (0-10)
[2019-11-27] MEDS: sodium chloride 0.9% 500 ML IV (12:20)
[2019-11-27] MEDS: fentaNYL 50 mcg/mL INJ 2mL 25 MCG IVP (13:56)
[2019-11-27] MEDS: digoxin 250 mcg/ml INJ 2 mL IVP (13:56)
--- NOTE | 2019-11-27 15:57 | ECG_ITS ---
Measurements Intervals [place] Rate: 88 P: MI: 0 QRS: 66 QRSD: 89 T: 59 QT: 351 QTc: 426 ATRIAL FLUTTER/TACHYCARDIA ABNORMAL RHYTHM ECG Compared to ECG 11/18/2019 15:22:42 Sinus rhythm no longer present Myocardial infarct finding no longer present Electronically Signed On 11-27-2019 20:54:07 CDT by Gavino Hay M.D. [id number] f
[2019-11-27 16:18] LABS: Troponin 5 6HR 30.98 ng/mL (0-15)
[2019-11-27 16:19] LABS: Troponin 5 6HR Delta -5.02 ng/L (0-12)
--- NOTE | 2019-11-27 17:07 | P.HP_ITS ---
Providers/Chief Complaint Primary Care Provider: Jerome Steinberg MD Chief Complaint: CHEST PAINS History of Present Illness Giuseppe Grimaldo is a 69 year old male with metastatic lung cancer, recently diagnosed and have initiated assessment by oncology, COPD, HTN, BPH came to the emergency department for evaluation of fast heart rate, bilateral chest pain this morning. His heart rate slowed to be in the 170s, irregularly irregular. In ER he was started on Cardizem drip for atrial fibrillation with RVR, however, blood pressures were soft, depressed to be decreased but he received a dose of digoxin. His heart rates improved down to 80s. Blood pressure has been gradually improving. His chest pain is not completely gone, but has decreased significantly. Of note he was recently hospitalized here due to pneumonia, influenza and was discharged home to complete the course of Levaquin, Tamiflu and prednisone. Metoprolol 25 mg twice a day was prescribed for atrial fibrillation. He is on Eliquis. Please refer to documentation from prior admission. Review of Systems Const: Denies: fever, chills, body aches or malaise Eyes: Denies: change in vision or eye redness ENMT: Denies: throat pain, oral sores/lesions or ear pain Card: Denies: chest pain, edema, pre-syncope or shortness of breath on exertion Resp: Denies: shortness of breath, productive cough, change in phlegm color or coughing up blood GI: Denies: abdominal pain, nausea, vomiting, diarrhea, constipation, blood in stool or black tarry stool : Denies: flank pain, difficulty urinating, urinary frequency or blood in urine Musc: Denies: back pain, joint swelling or redness Skin/Breast: Denies: rash, sores or new lesion Neuro: Denies: headache, numbness in extremities, weakness in extremities, dizziness, confusion or seizure-like activity Endo: Denies: excessive urination or excessive thirst Reginaldo/Lymph: Denies: easy bleeding or purpura All/Imm: Denies: hives, throat swelling or tongue swelling Medications/Allergies Home Medications Medication Instructions Recorded Confirmed Last Taken Type metoprolol tartrate 12.5 mg PO BID 11/27/19 11/27/19 11/27/19 History Allergies Allergy/AdvReac Type Severity Reaction Status Date / Time No Known Allergies Allergy Verified 11/27/19 09:47 PFSH Acute PFSH: Medical History BPH with obstruction/lower urinary tract symptoms Chronic obstructive pulmonary disease with (acute) exacerbation Essential (primary) hypertension Keratoacanthoma Lumbar paraspinal muscle spasm Panlobular emphysema Rheumatoid arthritis, seropositive, 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 Thyroid with heterogeneous echotexture determined by ultrasound Surgical History S/P cholecystectomy S/P colonoscopy 2017- REPEAT IN 10 YEARS S/P endoscopic carpal tunnel release S/P eye surgery S/P shoulder surgery Status post right knee replacement Family History Other Aneurysm Arthritis CAD (coronary artery disease) Diabetes Hypertension Social History Smoking and tobacco status: former smoker Quit status (tobacco): has quit using tobacco Year quit tobacco: 1999 - 2PPD x 30 Years Second hand smoke exposure: No Alcohol intake: former Year of sobriety/quit date alcohol: 1999 Former alcohol use details: HEAVY Household members: spouse Housing: House Marital status: service: Yes Current occupational status: retired History of recent travel: No Current gender identity: Male Vitals/I&O/Wt Last Vital Signs Temp 97.8 F 11/27/19 09:45 Pulse 85 11/27/19 16:40 Resp 16 11/27/19 16:40 BP 120/72 11/27/19 16:40 Pulse Ox 93 11/27/19 16:40 11/27/19 11/27/19 11/27/19 06:59 14:59 22:59 Intake Total 42.834 / 42.834 Balance 42.834 / 42.834 Weight last 48 hrs Weight 90.718 kg Physical Exam Const: COMMON NORMALS: no apparent distress and oriented x3 HENMT: COMMON NORMALS: oropharynx normal Neck/C-Spine: COMMON NORMALS: no JVD Resp: COMMON NORMALS: normal respiratory effort AUSCULTATION: diminished lung sounds Cardio: COMMON NORMALS: no JVD, S1 normal heart sound, S2 normal heart sound and no murmurs RHYTHM: abnormal rhythm irregularly irregular HEART SOUNDS: S1 normal and S2 normal GI: COMMON NORMALS: normal to inspection, nondistended, normoactive bowel sounds, soft to palpation and non-tender PALPATION: Yes soft Extremity: COMMON NORMALS: no joint enlargement and no pedal edema Neuro: COMMON NORMALS: oriented x3 and moves all extremities Skin: COMMON NORMALS: no rashes or lesions noted GENERAL SKIN EXAM: no rashes or lesions noted Data : 11/27/19 09:50 11/27/19 09:50 A&P Assessment and plan (1) Atrial fibrillation with RVR: Required initiation of Cardizem drip in ER. Blood pressures low sub-only. Received a dose of Zosyn 0.25 milligram. Due to A. fib with RVR with hypotension requiring admission. Wean off Cardizem. Repeat digoxin if needed. Monitor blood pressure. This appears to be improving, if continues to do well restart his metoprolol dose. Check magnesium. Complete troponin EKG series. His symptoms are improved. He is still having some discomfort, although so far studies not suggestive of acute TN. Suspect the recent pneumonia, influenza, with underlying metastatic malignancy are responsible for this episode. Status: Acute Code(s): I48.91 - Unspecified atrial fibrillation (2) SOURAV (acute kidney injury): Creatinine 1.7. Will hold his losartan. Monitor blood pressure. LILY. Renal function. Status: Acute Code(s): N17.9 - Acute kidney failure, unspecified (3) Squamous cell lung cancer: Continue follow-up with oncology. Status: Acute Code(s): C34.90 - Malignant neoplasm of unspecified part of unspecified bronchus or lung (4) HCAP (healthcare-associated pneumonia): Continue Levaquin. Status: Acute Code(s): J18.9 - Pneumonia, unspecified organism (5) Influenza A: Should have completed Tamiflu. States that he had picked up and took his medications. Status: Acute Code(s): J10.1 - Influenza due to other identified influenza virus with other respiratory manifestations (6) Panlobular emphysema: COPD. On chronic oxygen at home, 3-4 L. Continue inhalers. Status: Acute Code(s): J43.1 - Panlobular emphysema Attestations Medical Necessity Statement*: Place in observation. Coding Level of Care Code Acute Medical Technologist Prn for Chg Fwd Diagnoses Atrial fibrillation with RVR I48.91 SOURAV (acute kidney injury) N17.9 Squamous cell lung cancer C34.90 HCAP (healthcare-associated pneumonia) J18.9 Influenza A J10.1 Panlobular emphysema J43.1
--- NOTE | 2019-11-27 19:10 | PC.NURSE ---
requesting ice water, water provided, no other needs voiced at this time
[2019-11-27] MEDS: apixaban 5 mg Tablet PO (20:16)
[2019-11-27] MEDS: metoprolol tartrate 25 mg Tablet PO (20:16)
[2019-11-27] MEDS: sodium chloride 0.9% 1,000 ML 150 ML IV (20:17)
[2019-11-27] MEDS: tamsulosin 0.4 mg Capsule 0.8 MG PO (22:32)
[2019-11-28] VITALS (17 sets, daily range): BP systolic 89–182; BP diastolic 53–81; PULSE 70–86; RESP 14–28; O2SAT 89–98
[2019-11-28] MEDS: acetaminophen 325 mg Tablet 650 MG PO ×3 (00:39→17:51)
[2019-11-28] MEDS: sodium chloride 0.9% 1,000 ML 150 ML IV ×2 (03:21→10:06)
[2019-11-28 04:39] LABS: Basophils % 0.1 %; Eosinophils % 0.1 %; Hematocrit 43.3 % (42.0-52.0); Hemoglobin 13.8 g/dL (11.7-16.6); Lymphocytes # 0.5 10^3/uL (0.8-4.8); Lymphocytes % 4.4 %; Mean Corpuscular HGB Conc 31.9 g/dL (30.0-36.0); Mean Corpuscular Hemoglobin 28.3 pg (28.0-34.0); Mean Corpuscular Volume 88.7 fL (80-94); Mean Platelet Volume 10.5 fL (7.4-10.4); Monocytes # 1.1 10^3/uL (0.2-0.9); Monocytes % 9.5 %; Neutrophils # 9.8 10^3/uL (1.8-7.7); Nucleated Red Blood Cells % 0 %; Platelet Count 103 10^3/cmm (130-400); Red Blood Count 4.88 10^6/uL (4.1-5.3); Red Cell Distribution Width 14.1 % (12.1-15.1); White Blood Count 11.5 10^3/uL (4.0-10.0)
[2019-11-28 04:43] LABS: Alanine Aminotransferase 10 U/L (0-41); Albumin Level 1.8 g/dL (3.5-5.2); Alkaline Phosphatase 94 IU/L (40-130); Anion Gap 13.9 (5-19); Aspartate Amino Transferase 29 U/L (0-40); Blood Urea Nitrogen 28 mg/dL (8-23); Calcium 9.8 mg/dL (8.5-10.5); Carbon Dioxide 21 mmol/L (22-29); Chloride 101 mmol/L (98-107); Creatinine Clr Calc Pharmacy 65.0606; Globulin 3.8 g/dL (1.3-4.6); Glucose 180 mg/dL (65-115); Osmolality Calculated 276 mOsm/kg (285-295); Potassium 3.9 mmol/L (3.5-5.1); Sodium 132 mmol/L (136-145); Total Bilirubin 0.7 mg/dL (0.15-1.2); Total Protein 5.6 g/dL (6.6-8.7)
[2019-11-28] MEDS: finasteride 5 mg Tablet PO (07:59)
[2019-11-28] MEDS: levoFLOXacin 750 mg Tablet PO (07:59)
[2019-11-28] MEDS: ascorbic acid 500 mg Tablet PO (07:59)
[2019-11-28] MEDS: calcium carb-vit d 600mg/400unit 1 Tablet 1 EACH PO (07:59)
[2019-11-28] MEDS: cholecalciferol (vitamin D3) 1,000 unit Tablet 2000 UNIT PO (07:59)
[2019-11-28] MEDS: apixaban 5 mg Tablet PO ×2 (07:59→17:14)
[2019-11-28] MEDS: fluticasone nasal spray 16gm Btl 1 SPRAY INTRANASAL (08:00)
[2019-11-28] MEDS: metoprolol tartrate 25 mg Tablet PO ×2 (08:00→17:14)
[2019-11-28] MEDS: digoxin 125 mcg Tablet PO (08:07)
[2019-11-28] MEDS: cyclobenzaprine 10 mg Tablet PO ×2 (10:09→17:52)
--- NOTE | 2019-11-28 15:32 | PC.CHAP ---
Pastoral Care Encounter/Spiritual Assessment Type of Contact [] Declined mercerizer machine operator visit [] Patient/Family/Request visit [] Outpatient visit [] Follow-up visit [] Physician referral [] Code/Alert [] Routine visit [] Staff referral [] Actively dying [] Patient sleeping [] Family support [] [] Out of room [] Palliative care [] [] Receiving care in room [] Pre-surgical visit [] Trauma [] Long length of stay [] ICU visit [] Other: Relational/Emotional Strength [] Patient feels connected with others/family/visitors/staff [] Distress [] Loneliness/isolation [] Abandonment Spirituality of Patient [] Person of Indira [] Attends Samaritan of their Indira [] Believes in Prayer [] Reads Bible or Protestant materials [] There are Spiritual issues to be addressed Oil Burner Journeyman Interventions [] Prayer [] Active listening [] Non-anxious presence [] Spiritual/emotional support [] Crisis/trauma care [] Spiritual counseling [] Bereavement support [] Provided bereavement packet [] Provided Bible/devotional materials [] Provided toy/stuffed animal, coloring book to patient or family member [] Provided Communion [] Anointing/[place] [] Salvation [] Completed spiritual assessment [] Other: Impact on Illness or Injury [] Angry [] Fearful [] Anxious [] Often cries [] Exhaustion [] Unable to work [] Unable to attend sikh [] Unable to walk/stand [] Unable to read [] Unable to drive [] Unable to eat/drink [] Unable to sleep [] Unable to be with family [] Patient intubated [] Other: Summary Patient was asleep Time spent with patient
[2019-11-28] MEDS: morphine 4 mg/mL SDV 1 mL 2 MG IVP ×2 (15:34→18:20)
[2019-11-28] MEDS: predniSONE 10 mg Tablet 30 MG PO (17:14)
--- NOTE | 2019-11-28 17:19 | ECG_ITS ---
Measurements Intervals [place] Rate: 82 P: 70 [place]: 147 QRS: 75 QRSD: 93 T: 52 QT: 353 QTc: 412 SINUS RHYTHM Compared to ECG 11/27/2019 17:03:00 Atrial flutter no longer present Electronically Signed On 11-29-2019 9:06:54 CDT by Willy Ocampo M.D. [id number]
--- NOTE | 2019-11-28 17:27 | XRR_ITS ---
PROCEDURE INFORMATION: Exam: XR Chest, 1 View Exam date and time: 11/28/2019 6:23 PM Age: 69 years old Clinical indication: Shortness of breath; Patient HX: Known lung CA w/ mets liver, bone; Additional info: Chest pain, SOB, afib w rvr TECHNIQUE: Imaging protocol: XR of the chest Views: 1 view. COMPARISON: CR XR chest 1V portable [id number] 11/27/2019 10:11 AM FINDINGS: Lungs: Interstitial prominence diffusely. Likely chronic/fibrosis. Interstitial infiltrate and/or edema within the differential diagnosis. Pleural space: Unremarkable. No pleural effusion. No pneumothorax. Heart/Mediastinum: The cardiac silhouette appears enlarged, some of which is magnification related to the AP projection. Bones/joints: Unremarkable. XR/XR chest 1V portable [id number] IMPRESSION: Interstitial prominence diffusely. Likely chronic/fibrosis. Interstitial infiltrate and/or edema within the differential diagnosis. Small subpulmonic effusions bilaterally.
[2019-11-28] MEDS: nitroglycerin 0.4 mg sublingual Tablet SUBLINGUAL ×3 (17:49→18:03)
[2019-11-28 18:50] LABS: Troponin T (5th) Once 21 ng/mL (0-15)
[2019-11-28] MEDS: tamsulosin 0.4 mg Capsule 0.8 MG PO (20:41)
--- NOTE | 2019-11-28 21:09 | PM.PN ---
Subjective Subjective: Interval history: This morning or some discomfort in his chest when he lays on his side. This is gotten worse through the day. Reported no trouble with breathing. Vitals/I&O/Wt Last Vital Signs Temp 97.8 F 11/27/19 09:45 Pulse 77 11/28/19 20:00 Resp 18 11/28/19 20:00 BP 182/68 11/28/19 20:00 Pulse Ox 98 11/28/19 18:20 11/28/19 11/28/19 11/28/19 06:59 14:59 22:59 Intake Total 1522.166 / 3645.142 0374.667 / 1281.667 500 / 1781.667 Balance 1522.166 / 7075.056 2682.667 / 1281.667 500 / 1781.667 Weight last 48 hrs Weight 90.718 kg Physical Exam Const: COMMON NORMALS: no apparent distress and oriented x3 OTHER: Mildly anxious. HENMT: COMMON NORMALS: oropharynx normal Neck/C-Spine: COMMON NORMALS: no JVD Resp: COMMON NORMALS: normal respiratory effort and clear to auscultation bilaterally AUSCULTATION: clear to auscultation bilaterally Cardio: COMMON NORMALS: no JVD, S1 normal heart sound, S2 normal heart sound and no murmurs RHYTHM: abnormal rhythm irregularly irregular HEART SOUNDS: S1 normal and S2 normal GI: COMMON NORMALS: normal to inspection, nondistended, normoactive bowel sounds, soft to palpation and non-tender PALPATION: Yes soft Extremity: COMMON NORMALS: no joint enlargement and no pedal edema Neuro: COMMON NORMALS: oriented x3 and moves all extremities Skin: COMMON NORMALS: no rashes or lesions noted GENERAL SKIN EXAM: no rashes or lesions noted Data : 11/28/19 04:00 11/28/19 04:00 A&P Assessment and plan (1) Atrial fibrillation with RVR: No further tachycardia. Weaned off Cardizem drip this morning. Converted to oral digoxin. Continues on metoprolol. Complete troponin EKG series without suggestion of acute ND. He is still having some discomfort, although so far studies not suggestive of acute ND. Suspect the recent pneumonia, influenza, with underlying metastatic malignancy are responsible for this episode. Status: Acute Code(s): I48.91 - Unspecified atrial fibrillation (2) SOURAV (acute kidney injury): Creatinine improving. Will hold his losartan. Monitor blood pressure. I&O. Renal function. Status: Acute Code(s): N17.9 - Acute kidney failure, unspecified (3) Squamous cell lung cancer: Continue follow-up with oncology. Status: Acute Code(s): C34.90 - Malignant neoplasm of unspecified part of unspecified bronchus or lung (4) HCAP (healthcare-associated pneumonia): Continue Levaquin. Status: Acute Code(s): J18.9 - Pneumonia, unspecified organism (5) Influenza A: Should have completed Tamiflu. States that he had picked up and took his medications. Status: Acute Code(s): J10.1 - Influenza due to other identified influenza virus with other respiratory manifestations (6) Panlobular emphysema: COPD. On chronic oxygen at home, 3-4 L. Continue inhalers. Status: Acute Code(s): J43.1 - Panlobular emphysema Additional A&P Information Chest discomfort: Today somewhat more chest discomfort progressing through the day. Troponin repeated and without any rise. EKG with sinus rhythm. Chest x-ray with perhaps mild fluid overload. Discontinued IV fluid. Chest pain improved with pain medication. Blood pressure stable and same in both arms. Heart rates have stayed good. Chest complaints are atypical, somewhat worse when he lays on the side. Wonder if perhaps related to lytic bony metastatic disease or lung metastatic disease. For now we will continue to monitor him on CSU. Attestations Medical Necessity Statement*: Continue admission for abdomen of A. fib with RVR, SOURAV. Coding Level of Care Code Acute Logistical Engineer for g Fwd Diagnoses Atrial fibrillation with RVR I48.91 SOURAV (acute kidney injury) N17.9 Squamous cell lung cancer C34.90 HCAP (healthcare-associated pneumonia) J18.9 Influenza A J10.1 Panlobular emphysema J43.1
[2019-11-28] MEDS: ipratropium-albuterol 3 mL Neb INHALATION (21:42)
[2019-11-29] VITALS: BP 144/98; PULSE 80; RESP 15; TEMP 36.9
[2019-11-29 02:00] VITALS: BP 151/101; PULSE 79; RESP 8
[2019-11-29 04:00] VITALS: BP 126/88; PULSE 85; RESP 18; TEMP 37.1
[2019-11-29 04:45] LABS: Hematocrit 45.9 % (42.0-52.0); Lymphocytes # 0.3 10^3/uL (0.8-4.8); Lymphocytes % 3.2 %; Mean Corpuscular HGB Conc 32.7 g/dL (30.0-36.0); Mean Corpuscular Volume 85.6 fL (80-94); Mean Platelet Volume 9.8 fL (7.4-10.4); Monocytes # 0.4 10^3/uL (0.2-0.9); Monocytes % 3.9 %; Neutrophils # 8.4 10^3/uL (1.8-7.7); Neutrophils % 91.9 %; Nucleated Red Blood Cells % 0 %; Platelet Count 116 10^3/cmm (130-400); Red Blood Count 5.36 10^6/uL (4.1-5.3); Red Cell Distribution Width 13.8 % (12.1-15.1); White Blood Count 9.1 10^3/uL (4.0-10.0)
[2019-11-29 05:01] LABS: Alanine Aminotransferase 11 U/L (0-41); Albumin Level 2.2 g/dL (3.5-5.2); Alkaline Phosphatase 111 IU/L (40-130); Anion Gap 17.6 (5-19); Aspartate Amino Transferase 33 U/L (0-40); Blood Urea Nitrogen 20 mg/dL (8-23); Calcium 10.7 mg/dL (8.5-10.5); Carbon Dioxide 21 mmol/L (22-29); Chloride 99 mmol/L (98-107); Globulin 4.4 g/dL (1.3-4.6); Glucose 190 mg/dL (65-115); Osmolality Calculated 278 mOsm/kg (285-295); Potassium 4.6 mmol/L (3.5-5.1); Sodium 133 mmol/L (136-145); Total Bilirubin 0.6 mg/dL (0.15-1.2); Total Protein 6.6 g/dL (6.6-8.7)
[2019-11-29 08:00] VITALS: BP 129/85; PULSE 89; RESP 19; TEMP 36.7; O2SAT 91
[2019-11-29 08:03] VITALS: PULSE 89
[2019-11-29] MEDS: fluticasone nasal spray 16gm Btl 1 SPRAY INTRANASAL (08:03)
[2019-11-29] MEDS: cholecalciferol (vitamin D3) 1,000 unit Tablet 2000 UNIT PO (08:03)
[2019-11-29] MEDS: predniSONE 10 mg Tablet 30 MG PO (08:03)
[2019-11-29] MEDS: digoxin 125 mcg Tablet PO (08:03)
[2019-11-29] MEDS: calcium carb-vit d 600mg/400unit 1 Tablet 1 EACH PO (08:03)
[2019-11-29] MEDS: finasteride 5 mg Tablet PO (08:04)
[2019-11-29] MEDS: metoprolol tartrate 25 mg Tablet PO (08:04)
[2019-11-29] MEDS: apixaban 5 mg Tablet PO (08:04)
[2019-11-29] MEDS: levoFLOXacin 750 mg Tablet PO (08:04)
[2019-11-29] MEDS: ascorbic acid 500 mg Tablet PO (08:04)
[2019-11-29] MEDS: acetaminophen 325 mg Tablet 650 MG PO (08:13)
[2019-11-29] MEDS: cyclobenzaprine 10 mg Tablet PO (08:13)
--- NOTE | 2019-11-29 10:02 | PM.DCS ---
Discharge Providers Date of Admission: 11/28/19 22:28 Date of Discharge: November 29, 2019 Attending Provider at Admission: Eben Mayers Attending Provider at Discharge: Eben Mayers Primary Care Provider: Jerome Steinberg MD Diagnoses at Discharge Discharge Diagnosis (1) Atrial fibrillation with RVR: Status: Acute (2) SOURAV (acute kidney injury): Status: Acute (3) Squamous cell lung cancer: Status: Acute (4) HCAP (healthcare-associated pneumonia): Status: Acute (5) Influenza A: Status: Acute (6) Panlobular emphysema: Status: Acute Reason for Visit Reason for Visit: Reason For Visit: afib w/rvr, lung ca with mets, akl Hospital Course Hospital Course: Pleasant 69-year-old gentleman with metastatic lung cancer, currently in follow-up with oncology regarding initiation of palliative treatment, history of atrial fibrillation, COPD, HTN, BPH, with recent admission for management of pneumonia, influenza infection, discharged on 11/20 return to the hospital due to chest discomfort, with noted tachycardia on presentation with Phillip fib with RVR, heart rates in the 170s, initially started on Cardizem drip, however, with hypotension, had to be tapered back, and digoxin was added. He was continued on treatment for pneumonia and has completed a course of Tamiflu for influenza. He was continued on prednisone taper. Received gentle IV hydration due to acute kidney injury on presentation. His losartan was held and will hold it for now for 2 weeks, please adjust as necessary depending on follow up renal function. His oxygenation has remained stable. His heart rate gradually improved, and he was weaned off Cardizem drip entirely, switched over to oral digoxin dose in addition to metoprolol. On the hospital experienced additional episode of discomfort which was worse with changing position, laying on his side, atypical, with unremarkable repeat troponin, EKG. Chest x-ray with perhaps mild fluid overload, superimposed on chronic changes due to which his IV fluids were discontinued yesterday. He reports that he is feeling better. Today his symptoms have improved, and he denies any significant chest pain or discomfort. He is doing well on 4 L nasal cannula. His heart rates remained stable in the 80s. Given he has remained stable since yesterday, will let him go home, he and his verbalized understanding to return to the hospital in case he worsens again at home, and will monitor his heart rates and blood pressure. He is agreeable for home health follow-up and monitor his oxygenation in addition to other vitals, as well as for physical therapy. He will resume follow-up with his oncologist and residency coordinator. Physical Exam Const: COMMON NORMALS: no apparent distress and oriented x3 OTHER: Mildly anxious. HENMT: COMMON NORMALS: oropharynx normal Neck/C-Spine: COMMON NORMALS: no JVD Resp: COMMON NORMALS: normal respiratory effort and clear to auscultation bilaterally AUSCULTATION: clear to auscultation bilaterally Cardio: COMMON NORMALS: no JVD, S1 normal heart sound, S2 normal heart sound and no murmurs RHYTHM: abnormal rhythm irregularly irregular HEART SOUNDS: S1 normal and S2 normal GI: COMMON NORMALS: normal to inspection, nondistended, normoactive bowel sounds, soft to palpation and non-tender PALPATION: Yes soft Extremity: COMMON NORMALS: no joint enlargement and no pedal edema Neuro: COMMON NORMALS: oriented x3 and moves all extremities Skin: COMMON NORMALS: no rashes or lesions noted GENERAL SKIN EXAM: no rashes or lesions noted Discharge Data Data Completed and Pending: Completed Studies During Hospitalization Category Date Time Status XR chest 1V deanne ble [id number] Stat Exams 11/27/19 09:56 Completed Pending at discharge Category Date Time Status XR chest 1V deanne ble [id number] Routine Exams 11/28/19 17:27 Taken Complete Blood Co unt w/Auto AM LABS Lab 11/30/19 04:00 Ordered Complete Blood Co unt w/Auto AM LABS Lab 12/01/19 04:00 Ordered Comprehensive Met abolic Panel AM LA BS Lab 11/30/19 04:00 Ordered Labs from last 24 hours 11/29/19 11/29/19 11/28/19 04:33 04:33 18:13 WBC 9.1 RBC 5.36 H Hgb 15.0 Hct 45.9 MCV 85.6 MCH 28.0 MCHC 32.7 RDW 13.8 Plt Count 116 L MPV 9.8 Neut % (Auto) 91.9 Lymph % (Auto) 3.2 [place] % (Auto) 3.9 Eos % (Auto) 0.0 Baso % (Auto) 0.0 Neut # (Auto) 8.4 H Lymph # (Auto) 0.3 L [place] # (Auto) 0.4 Eos # (Auto) 0.0 Baso # (Auto) 0.0 Nucleated RBC % (a uto) 0 Nucleated RBCs # 0.0 Sodium 133 L Potassium 4.6 Chloride 99 Carbon Dioxide 21 L Anion Gap 17.6 BUN 20 Creatinine 1.1 Glucose 190 H Calculated Osmolal ity 278 L Calcium 10.7 H Total Bilirubin 0.6 AST 33 ALT 11 Alkaline Phosphata se 111 Troponin T Gen 5 n g/L 21 H Total Protein 6.6 Albumin 2.2 L Globulin 4.4 Vitals: Last Vital Signs Temp 98.1 F 11/29/19 08:00 Pulse 89 11/29/19 08:03 Resp 19 H 11/29/19 08:00 BP 129/85 11/29/19 08:00 Pulse Ox 91 11/29/19 08:00 Discharge Plan Discharge Patient Disposition: Home Health Service Condition: Stable Prescriptions: New digoxin 125 mcg (0.125 mg) Tablet 125 mcg PO DAILY Qty: 30 RF: 0 Continued tamsulosin 0.4 mg capsule 0.8 mg PO BEDTIME RF: 0 finasteride 5 mg tablet 5 mg PO DAILY RF: 0 hydrochlorothiazide 25 mg tablet 25 mg PO DAILY RF: 0 Symbicort 160-4.5 mcg/actuation HFA aerosol inhaler 2 puff INHALATION BID RF: 0 cyclobenzaprine 10 mg tablet 10 mg PO TID RF: 0 albuterol sulfate 2.5 mg /3 mL (0.083 %) Solution For Nebulization 2.5 mg INHALATION QID PRN (Reason: Shortness Of Breath) RF: 0 benzonatate 200 mg Capsule 200 mg PO TID PRN (Reason: Cough) RF: 0 calcium carbonate [Calcium 600] 600 mg calcium (1,500 mg) Tablet 600 mg PO DAILY RF: 0 ascorbic acid (vitamin C) [Vitamin C] 500 mg Tablet 500 mg PO DAILY RF: 0 nitroglycerin [Nitrostat] 0.4 mg Tablet, Sublingual 0.4 mg SUBLINGUAL Q5M PRN (Reason: Chest Pain) RF: 0 cholecalciferol (vitamin D3) [Vitamin D3] 2,000 unit Tablet 2,000 unit PO DAILY RF: 0 prednisone 10 mg tablet See Rx Instructions .ROUTE .COMPLEX Qty: 1,000 RF: 0 metoprolol tartrate 25 mg tablet 12.5 mg PO BID RF: 0 levofloxacin [Levaquin] 750 mg tablet 750 mg PO DAILY 2 Days Qty: 2 RF: 0 Eliquis 5 mg Tablet 5 mg PO BID RF: 0 fluticasone propionate [Flonase Allergy Relief] 50 mcg/actuation [place],Suspension 1 spray INTRANASAL DAILY RF: 0 Spiriva Respimat 2.5 mcg/actuation Mist 1 inh INHALATION DAILY RF: 0 Held losartan 100 mg Tablet 50 mg PO DAILY RF: 0 Hold Instructions: Resume on 12/13/19. Discontinued levofloxacin [Levaquin] 750 mg tablet 750 mg PO DAILY 7 Days Qty: 7 RF: 0 Discharge Orders: Discharge Order (Routine); Ordered 11/29/19 Ordered By: Eben Mayers Referrals: [facility] [Outside] (Your information has been sent to [facility] (formerly [place]) to see if they can provide home health services. The order was also sent to the [place] for approval. If you have any questions or concerns, please call the number provided. You may also call [facility] if you have any questions regarding your discharge at [phone]. [phone].) Jerome Steinberg MD [Primary Care Provider] - 4-7 days ( FOLLOW UP APPOINTMENT SCHEDULED FOR Wednesday AT 3:15 PM ) Mark Shannon MD [Hospitalist] - 1 week (THIS FOLLOW UP HAS BEEN SCHEDULED FOR THE FOLLOWING DATE ,Wednesday AT 10:30 AM ) Laine Ruiz MD [Physician] - (Follow up as previously CONFIRMED APPOINTMENT : SCHEDULED FOR JANUARY 01, 2020 AT 14:30) Discharge Diet: Advance as tolerated and Cardiac Discharge Activity: Increase activity as tolerated and Oxygen as instructed Patient Instructions: Atrial Fibrillation, Digoxin (By mouth) Activity Restrictions/Additional Instructions: Continue your oxygen at home at 4 L/min, adjust as needed, target saturation 88-92%. Continue to monitor your heart rate and blood pressure, write down values to bring to your appointment. Resume your prednisone taper where you left of prior to this current admission, and complete the course. Discharge Attestations Time Spent in Discharge Care*: greater than 30 min Quality Metrics Clinical Quality Measures During this hospital stay, did patient experience: None Coding Level of Care Code Acute Bottom Precipitator Operator for [place] Fwd Diagnoses Atrial fibrillation with RVR I48.91 SOURAV (acute kidney injury) N17.9 Squamous cell lung cancer C34.90 HCAP (healthcare-associated pneumonia) J18.9 Influenza A J10.1 Panlobular emphysema J43.1
[2019-11-29 10:13] VITALS: BP 129/85; PULSE 89; RESP 19; TEMP 36.7; O2SAT 91
--- NOTE | 2019-11-29 10:50 | PC.CHAP ---
Pastoral Care Encounter/Spiritual Assessment Type of Contact [] Declined biomedical equipment specialist visit [] Patient/Family/Request visit [] Outpatient visit [] Follow-up visit [] Physician referral [] Code/Alert [x] Routine visit [] Staff referral [] Actively dying [x] Patient sleeping [] Family support [] [] Out of room [] Palliative care [] [] Receiving care in room [] Pre-surgical visit [] Trauma [] Long length of stay [x] ICU visit [] Other: Relational/Emotional Strength [] Patient feels connected with others/family/visitors/staff [] Distress [] Loneliness/isolation [] Abandonment Spirituality of Patient [] Person of Indira [] Attends Jain of their Indira [] Believes in Prayer [] Reads Bible or Alevism materials [] There are Spiritual issues to be addressed Freight Car Repairer Interventions [] Prayer [] Active listening [] Non-anxious presence [] Spiritual/emotional support [] Crisis/trauma care [] Spiritual counseling [] Bereavement support [] Provided bereavement packet [] Provided Bible/devotional materials [] Provided toy/stuffed animal, coloring book to patient or family member [] Provided Communion [] Anointing/[place] [] Salvation [x] Completed spiritual assessment [] Other: Impact on Illness or Injury [] Angry [] Fearful [] Anxious [] Often cries [] Exhaustion [] Unable to work [] Unable to attend religious [] Unable to walk/stand [] Unable to read [] Unable to drive [] Unable to eat/drink [] Unable to sleep [] Unable to be with family [] Patient intubated [] Other: Summary Time spent with patient
--- NOTE | 2019-11-29 15:30 | PC.RESP ---
Patient given Pulmonary Rehab information.
== END 2019-11-29 12:29 | disposition home health service (06) | DRG 308 ==
LOC: ER 15:13 → ICU 18:28
PROVIDERS: Admitting Provider Internal Medicine; Emergency Provider Family Medicine; Family Provider Internal Medicine; PCP Internal Medicine; Visit Provider Internal Medicine
DX: I48.91 Unspecified atrial fibrillation (principal); J18.9 Pneumonia, unspecified organism; N17.9 Acute kidney failure, unspecified; C34.90 Malignant neoplasm of unspecified part of unspecified bronchus or lung; J10.1 Influenza due to other identified influenza virus with other respiratory manifestations; J43.1 Panlobular emphysema; Z87.891 Personal history of nicotine dependence; Z79.51 Long term (current) use of inhaled steroids
CPT/HCPCS: 12345; 36415; 71045; 80053; 84484; 85025; 93005; 94640; 94664; 96374; 96375; 99283; G0378; J1160; J2270; J3010; J3490; J7030; J7040; J7512; J7611

== ENCOUNTER 2019-12-01 07:31 | Emergency (ER) | payer OTHER, MEDICARE, SELFPAY ==
[2019-12-01] VITALS (33 sets, daily range): BP systolic 64–112; BP diastolic 42–75; PULSE 88–166; RESP 15–25; TEMP 36.8–37.1; O2SAT 87–94; BMI 29.2
--- NOTE | 2019-12-01 07:33 | ED_ITS ---
Entered by Rhona Matt, acting as scribe for Lev Brenner DO HPI - Chest Pain General: Chief Complaint: Chest Pain Stated Complaint: CHEST PAIN RAPID HEART RATE Time Seen by Provider: 12/01/19 07:49 Source: patient and EMS Mode of arrival: EMS Limitations: no limitations History of Present Illness: HPI narrative: 69 yo male presents with chest pa in. pt states this started this morning. pt was sleeping and woke up with sharp chest pain. pt states he has had a cough and increased shortness of breath. pt states he was recently admitted to our hospital for Afib. Pt states when he was picked up by EMS his heart rate was 180 and they gave him Cardizem and fluids. pt denies any other symptoms at this time. MD complaint: chest pain Pertinent past history: other (Afib) Onset (ago): hour(s) (just homicide [employer]) Timing of current episode: constant and still present Prior episodes: Yes Onset: awoke with symptoms (from sleep) Pain location: substernal Pain radiation: none Severity: moderate Quality: tightness and sharp Exacerbating factors: nothing Context: other (recent hospitalized) Associated symptoms: Reports dyspnea, palpitations and other (cough); Deny abdominal pain, fever(s), nausea or vomiting Treatment prior to arrival: other (cardizem and fluids given by EMS, heart rate was in 180 AFIB) Review of Systems Const: Denies: fever, chills, body aches, change in appetite, fatigue or malaise ENMT: Denies: throat pain, ear pain, nasal discharge or nasal congestion Card: Reports: palpitations Resp: Reports: shortness of breath GI: Denies: abdominal pain, nausea, vomiting, vomiting blood, coffee grounds in vomit, diarrhea, constipation, bloating, blood in stool or black tarry stool : Denies: flank pain, painful urination, urinary frequency or urinary urgency Musc: Denies: joint warmth Skin/Breast: Denies: rash or itching Psych: Denies: sleeping more All/Imm: Denies: acute wheezing PFSH ED PFSH: Social History Smoking and tobacco status: former smoker Quit status (tobacco): has quit using tobacco Year quit tobacco: 1999 - 2PPD x 30 Years Second hand smoke exposure: No Alcohol intake: former Year of sobriety/quit date alcohol: 1999 Former alcohol use details: HEAVY Household members: spouse Housing: House Marital status: service: Yes Current occupational status: retired History of recent travel: No Current gender identity: Male Physical Exam Const: COMMON NORMALS: no apparent distress GENERAL APPEARANCE: cooperative and comfortable ORIENTATION/CONSCIOUSNESS: Yes awake, Yes oriented to person, Yes oriented to place and Yes oriented to time HENMT: COMMON NORMALS: normocephalic, head/scalp atraumatic, hearing grossly normal bilaterally, external ears normal, EAC's normal, TM's normal bilaterally, nasal mucous membranes and turbinates normal, moist oral mucous membranes and oropharynx normal HEAD & SCALP: normocephalic and atraumatic NOSE: nasal mucous membranes and turbinates normal EXTERNAL EAR: Yes external ears normal EXTERNAL AUDITORY CANAL: EAC's normal TYMPANIC MEMBRANE: TM's normal bilaterally Eye: COMMON NORMALS: PERRL, EOMs intact bilaterally, conjunctivae normal and no scleral icterus CONJUNCTIVA: Yes conjunctivae normal PUPIL: Yes PERRL Neck/C-Spine: COMMON NORMALS: full ROM, no lymphadenopathy, supple and no JVD Lymph: LYMPHATIC: no lymphadenopathy noted and no lymphedema noted Resp: COMMON NORMALS: normal respiratory effort, no retractions, no use of accessory muscles and clear to auscultation bilaterally AUSCULTATION: clear to auscultation bilaterally Cardio: COMMON NORMALS: no JVD GI: COMMON NORMALS: soft to palpation and no hepatosplenomegaly AUSCULTATION: Yes normoactive bowel sounds PALPATION: Yes soft, No tender, No guarding and Yes no hepatosplenomegaly Extremity: COMMON NORMALS: normal to inspection, normal capillary refill, no clubbing, cyanosis or edema, no calf tenderness and no pedal edema Neuro: SENSORIUM/ORIENTATION: Yes oriented to person, Yes oriented to place and Yes oriented to time Skin: COMMON NORMALS: no rashes or lesions noted GENERAL SKIN EXAM: no rashes or lesions noted Course ED course: Patient was in earlier this week with a rapid heart rate. We had started him on digoxin in the ER and then continued it and send him home and that he had a breakthrough episode A. fib with RVR today he got Cardizem in the field did help improve his rate but also lowered his blood pressure. I called and talked to Dr. Ocampo he recommends doubling his digoxin dose since he is subtherapeutic and clinically still having breakthrough he feels the patient can be discharged home patient is feeling much better he does not wish to stay and is agreeable to the trial of increased digoxin. Advised him if he has any further episodes of breakthrough rapid heart rates he needs to return immediately after reevaluation likely would need to admit him and his family expressed understanding of this. Vital Signs: Vital signs: Vital Signs Temperature 98.2 F 12/01/19 09:05 Pulse Rate 92 12/01/19 10:26 Respiratory Rate 16 12/01/19 10:26 Blood Pressure 112/75 12/01/19 10:26 Pulse Oximetry 93 12/01/19 10:26 MDM - Chest Pain Lab Data: Labs: Lab Results 12/01/19 12/01/19 12/01/19 Range/Units 08:03 08:03 08:03 WBC 12.3 H (4.0-10.0) 10^3/ uL RBC 5.05 (4.1-5.3) 10^6/u L Hgb 14.6 (11.7-16.6) g/dL Hct 44.2 (42.0-52.0) % MCV 87.5 (80-94) fL MCH 28.9 (28.0-34.0) pg MCHC 33.0 (30.0-36.0) g/dL RDW 13.7 (12.1-15.1) % Plt Count 109 L (130-400) 10^3/c mm MPV 10.7 H (7.4-10.4) fL Neut % (Auto) 84.1 % Lymph % (Auto) 3.4 % [place] % (Auto) 10.9 % Eos % (Auto) 0.0 % Baso % (Auto) 0.1 % Neut # (Auto) 10.3 H (1.8-7.7) 10^3/u L Lymph # (Auto) 0.4 L (0.8-4.8) 10^3/u L [place] # (Auto) 1.3 H (0.2-0.9) 10^3/u L Eos # (Auto) 0.0 (0.0-0.8) 10^3/u L Baso # (Auto) 0.0 (0.0-0.1) 10^3/u L Nucleated RBC % (a uto) 0 % Nucleated RBCs # 0.0 /100WBC Sodium 137 (136-145) mmol/L Potassium 3.5 (3.5-5.1) mmol/L Chloride 99 (98-107) mmol/L Carbon Dioxide 26 (22-29) mmol/L Anion Gap 15.5 (5-19) BUN 17 (8-23) mg/dL Creatinine 1.2 (0.7-1.2) mg/dL Glucose 162 H (65-115) mg/dL Calculated Osmolal ity 284 L (285-295) mOsm/k g Calcium 11.6 H (8.5-10.5) mg/dL Total Bilirubin 0.6 (0.15-1.2) mg/dL AST 28 (0-40) U/L ALT 10 (0-41) U/L Alkaline Phosphata se 105 (40-130) IU/L Troponin T Baselin e 40 H (0-15) ng/mL Troponin T 120 Min zane (0-15) ng/mL Delta Troponin T (0-10) ABS# Total Protein 5.9 L (6.6-8.7) g/dL Albumin 2.4 L (3.5-5.2) g/dL Globulin 3.5 (1.3-4.6) g/dL Digoxin 0.4 L (0.6-1.2) ng/mL 12/01/19 Range/Units 10:07 WBC (4.0-10.0) 10^3/ uL RBC (4.1-5.3) 10^6/u L Hgb (11.7-16.6) g/dL Hct (42.0-52.0) % MCV (80-94) fL MCH (28.0-34.0) pg MCHC (30.0-36.0) g/dL RDW (12.1-15.1) % Plt Count (130-400) 10^3/c mm MPV (7.4-10.4) fL Neut % (Auto) % Lymph % (Auto) % [place] % (Auto) % Eos % (Auto) % Baso % (Auto) % Neut # (Auto) (1.8-7.7) 10^3/u L Lymph # (Auto) (0.8-4.8) 10^3/u L [place] # (Auto) (0.2-0.9) 10^3/u L Eos # (Auto) (0.0-0.8) 10^3/u L Baso # (Auto) (0.0-0.1) 10^3/u L Nucleated RBC % (a uto) % Nucleated RBCs # /100WBC Sodium (136-145) mmol/L Potassium (3.5-5.1) mmol/L Chloride (98-107) mmol/L Carbon Dioxide (22-29) mmol/L Anion Gap (5-19) BUN (8-23) mg/dL Creatinine (0.7-1.2) mg/dL Glucose (65-115) mg/dL Calculated Osmolal ity (285-295) mOsm/k g Calcium (8.5-10.5) mg/dL Total Bilirubin (0.15-1.2) mg/dL AST (0-40) U/L ALT (0-41) U/L Alkaline Phosphata se (40-130) IU/L Troponin T Baselin e (0-15) ng/mL Troponin T 120 Min zane 46.25 H (0-15) ng/mL Delta Troponin T 6.25 (0-10) ABS# Total Protein (6.6-8.7) g/dL Albumin (3.5-5.2) g/dL Globulin (1.3-4.6) g/dL Digoxin (0.6-1.2) ng/mL Imaging Data^: CXR: Radiologist's impression: [address] [address] XRay Report Signed Patient: Curtis Grimaldo #: [id number] : 8Acct#:[id number] Age/Sex: 69 / MADM Date: 12/01/19 Loc: ERRoom/Bed: Attending Dr: Ordering Provider/Ordering MD: Lev Brenner DO Date of Service: 12/01/19 Procedure(s): XR chest 1V portable 16518 Accession Number(s): [id number] Report Number: [id number] WS: [id number] Portable AP upright chest, 12/01/2019 Clinical Data: dyspnea/cough Comparison: Portable chest, 11/28/2019. Findings: There is bilateral diffuse interstitial infiltrate which may be from chronic interstitial pneumonia. Less likely is a pulmonary edema pattern. No acute pneumonia is seen. There is no pneumothorax. The heart is normal. The aortic arch is tortuous. Monitor leads are on the chest wall. XR/XR chest 1V portable [id number] Impression: 1. Diffuse interstitial infiltrate probably from chronic interstitial pneumonia. 2. Atherosclerosis. Dictated By:Ana Berry MD Signed By:Ana Berryigned Date/Time:12/01/19 0848 Discharge Plan Discharge Patient Disposition: Home, Self-Care Clinical Impression: Atrial fibrillation, Squamous cell lung cancer Condition: Stable Prescriptions: Changed digoxin 125 mcg (0.125 mg) Tablet 250 mcg PO DAILY Qty: 30 RF: 0 No Action tamsulosin 0.4 mg capsule 0.8 mg PO BEDTIME RF: 0 finasteride 5 mg tablet 5 mg PO DAILY RF: 0 hydrochlorothiazide 25 mg tablet 25 mg PO DAILY RF: 0 Symbicort 160-4.5 mcg/actuation HFA aerosol inhaler 2 puff INHALATION BID RF: 0 cyclobenzaprine 10 mg tablet 10 mg PO TID RF: 0 albuterol sulfate 2.5 mg /3 mL (0.083 %) Solution For Nebulization 2.5 mg INHALATION QID PRN (Reason: Shortness Of Breath) RF: 0 benzonatate 200 mg Capsule 200 mg PO TID PRN (Reason: Cough) RF: 0 calcium carbonate [Calcium 600] 600 mg calcium (1,500 mg) Tablet 600 mg PO DAILY RF: 0 ascorbic acid (vitamin C) [Vitamin C] 500 mg Tablet 500 mg PO DAILY RF: 0 nitroglycerin [Nitrostat] 0.4 mg Tablet, Sublingual 0.4 mg SUBLINGUAL Q5M PRN (Reason: Chest Pain) RF: 0 cholecalciferol (vitamin D3) [Vitamin D3] 2,000 unit Tablet 2,000 unit PO DAILY RF: 0 prednisone 10 mg tablet See Rx Instructions .ROUTE .COMPLEX Qty: 1,000 RF: 0 metoprolol tartrate 25 mg tablet 12.5 mg PO BID RF: 0 Levaquin 750 mg tablet 750 mg PO DAILY 2 Days Qty: 2 RF: 0 Eliquis 5 mg Tablet 5 mg PO BID RF: 0 fluticasone propionate [Flonase Allergy Relief] 50 mcg/actuation [place],Suspension 1 spray INTRANASAL DAILY RF: 0 Spiriva Respimat 2.5 mcg/actuation Mist 1 inh INHALATION DAILY RF: 0 losartan 100 mg Tablet 50 mg PO DAILY RF: 0 Hold Instructions: Resume on 12/13/19. Discharge Orders: Discharge Order (Routine); Ordered 12/01/19 Ordered By: Lev Brenner Referrals: Jerome Steinberg MD [Primary Care Provider] - Discharge Diet: Usual diet Discharge Activity: Increase activity as tolerated Activity Restrictions/Additional Instructions: Follow-up with cardiology or with your primary care doctor in 3 to 4 days for a digoxin level Discharge Date/Time: 12/01/19 10:59 Coding Level of Care Code ED Senior C Web Developer for Chg Fwd Exam Comprehensive The documentation recorded by the Shaka johnson Bridget Annette, accurately reflects the service I personally performed and the decisions made by Jorge Luis blankenship Curtis L, DO Dec 01, 2019 07:31
--- NOTE | 2019-12-01 07:55 | XR_ITS ---
WS: [id number] Portable AP upright chest, 12/01/2019 Clinical Data: dyspnea/cough Comparison: Portable chest, 11/28/2019. Findings: There is bilateral diffuse interstitial infiltrate which may be from chronic interstitial p neumonia. Less likely is a pulmonary edema pattern. No acute pneumonia is seen. There is no pneumotho rax. The heart is normal. The aortic arch is tortuous. Monitor leads are on the chest wall. XR/XR chest 1V portable 62015 Impression: 1. Diffuse interstitial infiltrate probably from chronic interstitial pneumonia . 2. Atherosclerosis.
--- NOTE | 2019-12-01 07:55 | ECG_ITS ---
Measurements Intervals [place] Rate: 96 P: NC: 0 QRS: 65 QRSD: 89 T: 53 QT: 313 QTc: 397 ATRIAL FIBRILLATION NONSPECIFIC T-WAVE ABNORMALITY ABNORMAL RHYTHM ECG Compared to ECG 11/28/2019 17:56:23 T-wave abnormality now present Sinus rhythm no longer present Electronically Signed On 12-01-2019 12:53:06 CDT by Julissa Somers M.D. [id number]
--- NOTE | 2019-12-01 08:06 | PC.NURSE ---
Lab at bedside to draw blood
--- NOTE | 2019-12-01 08:11 | PC.NURSE ---
XR performed at bedside
[2019-12-01 08:12] LABS: Basophils % 0.1 %; Hematocrit 44.2 % (42.0-52.0); Hemoglobin 14.6 g/dL (11.7-16.6); Lymphocytes # 0.4 10^3/uL (0.8-4.8); Lymphocytes % 3.4 %; Mean Corpuscular Hemoglobin 28.9 pg (28.0-34.0); Mean Corpuscular Volume 87.5 fL (80-94); Mean Platelet Volume 10.7 fL (7.4-10.4); Monocytes # 1.3 10^3/uL (0.2-0.9); Monocytes % 10.9 %; Neutrophils # 10.3 10^3/uL (1.8-7.7); Neutrophils % 84.1 %; Nucleated Red Blood Cells % 0 %; Platelet Count 109 10^3/cmm (130-400); Red Blood Count 5.05 10^6/uL (4.1-5.3); Red Cell Distribution Width 13.7 % (12.1-15.1); White Blood Count 12.3 10^3/uL (4.0-10.0)
[2019-12-01 08:33] LABS: Troponin(5th) Baseline 40 ng/mL (0-15)
[2019-12-01 09:18] LABS: Alanine Aminotransferase 10 U/L (0-41); Albumin Level 2.4 g/dL (3.5-5.2); Alkaline Phosphatase 105 IU/L (40-130); Anion Gap 15.5 (5-19); Aspartate Amino Transferase 28 U/L (0-40); Blood Urea Nitrogen 17 mg/dL (8-23); Calcium 11.6 mg/dL (8.5-10.5); Carbon Dioxide 26 mmol/L (22-29); Chloride 99 mmol/L (98-107); Digoxin 0.4 ng/mL (0.6-1.2); Globulin 3.5 g/dL (1.3-4.6); Glucose 162 mg/dL (65-115); Osmolality Calculated 284 mOsm/kg (285-295); Potassium 3.5 mmol/L (3.5-5.1); Sodium 137 mmol/L (136-145); Total Bilirubin 0.6 mg/dL (0.15-1.2); Total Protein 5.9 g/dL (6.6-8.7)
[2019-12-01] MEDS: digoxin 250 mcg/ml INJ 2 mL IVP (10:12)
[2019-12-01 10:30] LABS: Troponin 5 2HR 46.25 ng/mL (0-15); Troponin 5 2HR Delta 6.25 ABS# (0-10)
--- NOTE | 2019-12-01 13:55 | ECG_ITS ---
Measurements Intervals [place] Rate: 96 P: [place]: 0 QRS: 72 QRSD: 92 T: 48 QT: 313 QTc: 396 ATRIAL FIBRILLATION ABNORMAL RHYTHM ECG Compared to ECG 11/28/2019 17:56:23 Sinus rhythm no longer present Electronically Signed On 12-01-2019 13:00:56 CDT by Julissa Somers M.D. [email or web address]
== END 2019-12-01 10:59 | disposition home or self-care (01) ==
PROVIDERS: Emergency Provider Family Medicine; Family Provider Internal Medicine; PCP Internal Medicine
DX: I48.91 Unspecified atrial fibrillation (principal); C34.90 Malignant neoplasm of unspecified part of unspecified bronchus or lung; Z79.01 Long term (current) use of anticoagulants; Z87.891 Personal history of nicotine dependence
CPT/HCPCS: 12345; 36415; 71045; 80053; 80162; 84484; 85025; 93005; 96365; 96366; 96375; 99284; J1160; J3490

== ENCOUNTER 2019-12-06 14:09 | Inpatient (IN) | payer OTHER, MEDICARE, SELFPAY ==
[2019-12-06] VITALS (38 sets, daily range): BP systolic 91–165; BP diastolic 60–140; PULSE 84–160; RESP 16–40; TEMP 36.9; O2SAT 92–98; BMI 26.4
--- NOTE | 2019-12-06 14:12 | ED_ITS ---
Entered by Rhona Matt, acting as scribe for Mo Robb DO HPI - Arrhythmia/Palpitations General: Chief Complaint: Altered Mental Status Stated Complaint: GENERAL WEAKNESS, AFIB W RVR Time Seen by Provider: 12/06/19 14:25 Source: family and EMS Mode of arrival: EMS Limitations: altered mental status History of Present Illness: HPI narrative: 69 yo male presents with confusion and altered mental status. per spouse this started Wednesday after taking morphine. pt has chronic palpitations and Afib. pt has lung cancer. spouse stated the pt has been weak. spouse denied any other symptoms at this time.pt was recently admitted for the same symptoms. MD complaint: palpitations Onset (ago): day(s) (today) Duration: constant Severity: moderate Context: occurred during rest Arrhythmia history: atrial fibrillation Associated symptoms: Reports other (confusion,) Review of Systems General: Reports: ROS unobtainable due to medical condition and ROS unobtainable due to mental status Musc: Denies: joint warmth Psych: Denies: sleeping more All/Imm: Denies: acute wheezing PFSH ED PFSH: Social History Smoking and tobacco status: former smoker Quit status (tobacco): has quit using tobacco Year quit tobacco: 1999 - 2PPD x 30 Years Second hand smoke exposure: No Alcohol intake: former Year of sobriety/quit date alcohol: 1999 Former alcohol use details: HEAVY Household members: spouse Housing: House Marital status: service: Yes Current occupational status: retired History of recent travel: No Current gender identity: Male Physical Exam Const: EXAM LIMITATIONS: altered mental status GENERAL APPEARANCE: lethargic ORIENTATION/CONSCIOUSNESS: Yes confused and Yes lethargic Neuro: SENSORIUM/ORIENTATION: Yes lethargic Course Vital Signs: Vital signs: Vital Signs Temperature 98.4 F 12/06/19 14:18 Pulse Rate 96 12/06/19 14:18 Respiratory Rate 24 H 12/06/19 14:18 Blood Pressure 120/67 12/06/19 14:18 Pulse Oximetry 92 12/06/19 14:18 MDM - Arrhythmia/Palpitations Lab Data: Labs: Lab Results 12/06/19 12/06/19 12/06/19 Range/Units 14:49 14:49 14:49 WBC 10.5 H (4.0-10.0) 10^3/ uL RBC 5.43 H (4.1-5.3) 10^6/u L Hgb 15.3 (11.7-16.6) g/dL Hct 47.8 (42.0-52.0) % MCV 88.0 (80-94) fL MCH 28.2 (28.0-34.0) pg MCHC 32.0 (30.0-36.0) g/dL RDW 14.2 (12.1-15.1) % Plt Count 119 L (130-400) 10^3/c mm MPV 11.4 H (7.4-10.4) fL Neut % (Auto) 84.8 % Lymph % (Auto) 5.2 % [place] % (Auto) 8.7 % Eos % (Auto) 0.1 % Baso % (Auto) 0.2 % Neut # (Auto) 8.9 H (1.8-7.7) 10^3/u L Lymph # (Auto) 0.6 L (0.8-4.8) 10^3/u L [place] # (Auto) 0.9 (0.2-0.9) 10^3/u L Eos # (Auto) 0.0 (0.0-0.8) 10^3/u L Baso # (Auto) 0.0 (0.0-0.1) 10^3/u L Nucleated RBC % (a uto) 0 % Nucleated RBCs # 0.0 /100WBC Specimen Type Sample Site ABG pH (7.35-7.45) ABG pCO2 (35-45) mmHg ABG pO2 (80.0-100.0) mmH g ABG HCO3 (22-26) mmol/L ABG Base Excess (-2.0-2.0) mmol/ L Clifford Test Hematocrit (42-52) % O2 Delivery Device O2 Liters/Min % FiO2 % [employer] ID Sodium 140 (136-145) mmol/L Potassium 3.9 (3.5-5.1) mmol/L Chloride 99 (98-107) mmol/L Carbon Dioxide 27 (22-29) mmol/L Anion Gap 17.9 (5-19) BUN 33 H (8-23) mg/dL Creatinine 1.2 (0.7-1.2) mg/dL Glucose 124 H (65-115) mg/dL Calculated Osmolal ity 289 (285-295) mOsm/k g Lactate 2.0 (0.5-2.2) mmol/L Calcium 15.2 H* (8.5-10.5) mg/dL Total Bilirubin 0.9 (0.15-1.2) mg/dL AST 74 H (0-40) U/L ALT 16 (0-41) U/L Alkaline Phosphata se 123 (40-130) IU/L Ammonia (16-60) umol/L NT-Pro-B Natriuret Pep 2291 H (0-125) pg/mL Total Protein 6.6 (6.6-8.7) g/dL Albumin 2.5 L (3.5-5.2) g/dL Globulin 4.1 (1.3-4.6) g/dL Lipase 18 (13-60) U/L 12/06/19 12/06/19 Range/Units 15:19 15:27 WBC (4.0-10.0) 10^3/ uL RBC (4.1-5.3) 10^6/u L Hgb (11.7-16.6) g/dL Hct (42.0-52.0) % MCV (80-94) fL MCH (28.0-34.0) pg MCHC (30.0-36.0) g/dL RDW (12.1-15.1) % Plt Count (130-400) 10^3/c mm MPV (7.4-10.4) fL Neut % (Auto) % Lymph % (Auto) % [place] % (Auto) % Eos % (Auto) % Baso % (Auto) % Neut # (Auto) (1.8-7.7) 10^3/u L Lymph # (Auto) (0.8-4.8) 10^3/u L [place] # (Auto) (0.2-0.9) 10^3/u L Eos # (Auto) (0.0-0.8) 10^3/u L Baso # (Auto) (0.0-0.1) 10^3/u L Nucleated RBC % (a uto) % Nucleated RBCs # /100WBC Specimen Type Arterial Sample Site Brachial, right ABG pH 7.47 H (7.35-7.45) ABG pCO2 42.3 (35-45) mmHg ABG pO2 72.3 L (80.0-100.0) mmH g ABG HCO3 30.8 H (22-26) mmol/L ABG Base Excess 6.4 H (-2.0-2.0) mmol/ L Clifford Test N/a Hematocrit 50.6 (42-52) % O2 Delivery Device Nc O2 Liters/Min 5.0 % FiO2 40.0 % [employer] ID ah Sodium (136-145) mmol/L Potassium (3.5-5.1) mmol/L Chloride (98-107) mmol/L Carbon Dioxide (22-29) mmol/L Anion Gap (5-19) BUN (8-23) mg/dL Creatinine (0.7-1.2) mg/dL Glucose (65-115) mg/dL Calculated Osmolal ity (285-295) mOsm/k g Lactate (0.5-2.2) mmol/L Calcium (8.5-10.5) mg/dL Total Bilirubin (0.15-1.2) mg/dL AST (0-40) U/L ALT (0-41) U/L Alkaline Phosphata se (40-130) IU/L Ammonia 24 (16-60) umol/L NT-Pro-B Natriuret Pep (0-125) pg/mL Total Protein (6.6-8.7) g/dL Albumin (3.5-5.2) g/dL Globulin (1.3-4.6) g/dL Lipase (13-60) U/L Discharge Plan Discharge Prescriptions: No Action tamsulosin 0.4 mg capsule 0.8 mg PO BEDTIME RF: 0 finasteride 5 mg tablet 5 mg PO DAILY RF: 0 hydrochlorothiazide 25 mg tablet 25 mg PO DAILY RF: 0 fluconazole [Diflucan] 200 mg tablet 200 mg PO DAILY Qty: 7 RF: 0 Symbicort 160-4.5 mcg/actuation HFA aerosol inhaler 2 puff INHALATION BID RF: 0 cyclobenzaprine 10 mg tablet 10 mg PO TID RF: 0 albuterol sulfate 2.5 mg /3 mL (0.083 %) Solution For Nebulization 2.5 mg INHALATION QID PRN (Reason: Shortness Of Breath) RF: 0 benzonatate 200 mg Capsule 200 mg PO TID PRN (Reason: Cough) RF: 0 calcium carbonate [Calcium 600] 600 mg calcium (1,500 mg) Tablet 600 mg PO DAILY RF: 0 ascorbic acid (vitamin C) [Vitamin C] 500 mg Tablet 500 mg PO DAILY RF: 0 nitroglycerin [Nitrostat] 0.4 mg Tablet, Sublingual 0.4 mg SUBLINGUAL Q5M PRN (Reason: Chest Pain) RF: 0 cholecalciferol (vitamin D3) [Vitamin D3] 2,000 unit Tablet 2,000 unit PO DAILY RF: 0 prednisone 10 mg tablet See Rx Instructions .ROUTE .COMPLEX Qty: 1,000 RF: 0 metoprolol tartrate 25 mg tablet 12.5 mg PO BID RF: 0 levofloxacin [Levaquin] 750 mg tablet 750 mg PO DAILY 2 Days Qty: 2 RF: 0 Eliquis 5 mg Tablet 5 mg PO BID RF: 0 fluticasone propionate [Flonase Allergy Relief] 50 mcg/actuation [place],Suspension 1 spray INTRANASAL DAILY RF: 0 Spiriva Respimat 2.5 mcg/actuation Mist 1 inh INHALATION DAILY RF: 0 losartan 100 mg Tablet 50 mg PO DAILY RF: 0 Hold Instructions: Resume on 12/13/19. digoxin 125 mcg (0.125 mg) Tablet 250 mcg PO DAILY Qty: 30 RF: 0 lisinopril 20 mg tablet 20 mg PO DAILY RF: 0 ciprofloxacin HCl 0.3 % drops See Rx Instructions .ROUTE .COMPLEX RF: 0 morphine 15 mg Tablet 15 mg PO Q4H PRN (Reason: Pain) RF: 0 Coding Level of Care Code ED Textile Screen Printer for Chg Fwd Exam Problem Focused The documentation recorded by the Shaka johnson Bridget Annette, accurately reflects the service I personally performed and the decisions made by , Mo Robb DO Dec 06, 2019 14:09
--- NOTE | 2019-12-06 14:31 | XR_ITS ---
WS: [id number] XR chest 1V portable [id number] REASON FOR EXAM: ams FINDINGS: The diffuse interstitial infiltrates are basically unchanged since earlier examination of M arch 2019. The lower lungs are involved more than the upper but there is diffuse interstitial rachel nges seen bilaterally. There was no evidence today of pulmonary edema seen. The left hilum is prominent The apices are normal. XR/XR chest 1V portable [id number] IMPRESSION: Persistent diffuse interstitial pneumonia.
--- NOTE | 2019-12-06 14:31 | CTR_ITS ---
PROCEDURE INFORMATION: Exam: CT Head Without And With Contrast Exam date and time: 12/06/2019 2:34 PM Age: 69 years old Clinical indication: Altered mental status/memory loss; Patient HX: AMS with general weakness. History of lung cancer. ; Additional info: AMS in [place] PT TECHNIQUE: Imaging protocol: Computed tomography of the head without and with intravenous contrast. Total DLP: 1638.72 mGy-cm Radiation optimization: All CT scans at this facility use at least one of these dose optimization techniques: automated exposure control; mA and/or kV adjustment per patient size (includes targeted exams where dose is matched to clinical indication); or iterative reconstruction. Contrast material: OMNI 300; Contrast volume: 95 ml; Contrast route: 18G; COMPARISON: CT head wo con* [id number] 09/21/2018 1:05 PM FINDINGS: Brain: There is volume loss. There is no infarct. There is no hemorrhage or extra-axial collection. There is no mass or abnormal enhancement. Ventricles: Ventricular dilatation appears secondary to volume loss and is stable compared with prior scan.. Bones/joints: Unremarkable. No acute fracture. Sinuses: Visualized sinuses are unremarkable. No fluid levels. Mastoid air cells: Visualized mastoid air cells are well aerated. Soft tissues: Unremarkable. CT/CT head wo/w con [id number] IMPRESSION: 1. No acute intracranial lesion or injury and no change from prior scan. 2. No evidence of intracranial metastatic disease. Radiation Dose CTDIVOL = (mGy): DLP = 1638.72 (mGy-cm)
[2019-12-06 15:04] LABS: Basophils % 0.2 %; Eosinophils % 0.1 %; Hematocrit 47.8 % (42.0-52.0); Hemoglobin 15.3 g/dL (11.7-16.6); Lymphocytes # 0.6 10^3/uL (0.8-4.8); Lymphocytes % 5.2 %; Mean Corpuscular Hemoglobin 28.2 pg (28.0-34.0); Mean Platelet Volume 11.4 fL (7.4-10.4); Monocytes # 0.9 10^3/uL (0.2-0.9); Monocytes % 8.7 %; Neutrophils # 8.9 10^3/uL (1.8-7.7); Neutrophils % 84.8 %; Nucleated Red Blood Cells % 0 %; Platelet Count 119 10^3/cmm (130-400); Red Blood Count 5.43 10^6/uL (4.1-5.3); Red Cell Distribution Width 14.2 % (12.1-15.1); White Blood Count 10.5 10^3/uL (4.0-10.0)
[2019-12-06 15:22] LABS: Alanine Aminotransferase 16 U/L (0-41); Albumin Level 2.5 g/dL (3.5-5.2); Alkaline Phosphatase 123 IU/L (40-130); Anion Gap 17.9 (5-19); Aspartate Amino Transferase 74 U/L (0-40); Blood Urea Nitrogen 33 mg/dL (8-23); Carbon Dioxide 27 mmol/L (22-29); Chloride 99 mmol/L (98-107); Creatinine Clr Calc Pharmacy 63.6119; Globulin 4.1 g/dL (1.3-4.6); Glucose 124 mg/dL (65-115); Lipase 18 U/L (13-60); NT Pro B Type Natriuretic Pept 2291 pg/mL (0-125); Osmolality Calculated 289 mOsm/kg (285-295); Potassium 3.9 mmol/L (3.5-5.1); Sodium 140 mmol/L (136-145); Total Bilirubin 0.9 mg/dL (0.15-1.2); Total Protein 6.6 g/dL (6.6-8.7)
[2019-12-06 15:28] LABS: Calcium 15.2 mg/dL (8.5-10.5)
[2019-12-06 15:40] LABS: ABG PCO2 42.3 mmHg (35-45); ABG PH Result 7.47 (7.35-7.45); Arterial Blood Gas Hematocrit 50.6 % (42-52); Base Excess ABG 6.4 mmol/L (-2.0-2.0); Blood Gas Sample Site Brachial, right; Blood Gas Sample Type Arterial; HCO3 ABG 30.8 mmol/L (22-26); Oxygen Device NC; PO2 ABG 72.3 mmHg (80.0-100.0)
[2019-12-06 15:42] LABS: Ammonia 24 umol/L (16-60)
[2019-12-06] MEDS: iohexol 300 mg/mL 100 mL Btl IV (15:53)
[2019-12-06] MEDS: piperacillin-tazobactam 4.5 GM in sodium chloride 0.9% (plus) 50 ML IV (16:27)
[2019-12-06] MEDS: LORazepam 2 mg/mL INJ 1 mL (17:06)
--- NOTE | 2019-12-06 18:32 | PM.HP ---
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 Patient is quite somnolent and difficult to arouse during my evaluation in the ER, has just received a 2 mg dose of Ativan so history obtained from at bedside; collateral information obtained from review of medical record. Patient was recently admitted to our facility last week during which time he was managed for A. fib with RVR requiring Cardizem drip, he was discharged on digoxin and metoprolol and has been on anticoagulation with Eliquis. is unable to verify which medications he is on or when last doses were taken other than morphine which he took earlier this morning for pain control. Patient has been following up with Dr. Shannon, has had 1 visit at the beginning of the month with plan to evaluate for possible immunotherapy. Patient has extensive metastatic disease involving bone, lymph nodes and liver with what appears to be poor prognosis and this is a relatively new diagnosis. Patient has a longstanding history of COPD, is not oxygen dependent at baseline, is a former heavy smoker. Overall has not been doing well in terms of oral intake, has had persistent weight loss and diminished activity level. He has had ongoing issues with A. fib requiring hospital admission. During his last admission he had an echo done which shows an ejection fraction of 68%. He was recently treated for pneumonia with a course of oral Levaquin. He was seen by Dr. Steinberg who is his primary care provider on Wednesday and has been on fluconazole for oral thrush. He was found to have A. fib with RVR by EMS and received a 50 mg bolus dose of Cardizem. His heart rate was in the 150s, vital signs otherwise stable. He remained in A. fib on arrival to ED, Cardizem drip is currently running at 10 mg/hr with heart rates ranging from 90-130s. He is currently requiring 10 L oxygen via oxymask with saturation at 97%. Labs indicate mild leukocytosis with a white count of 10.5, with neutrophilic predominance, mild thrombocytopenia with a platelet count of 119, ABG is consistent with hypoxia with a PO2 of 72, minimal alkalosis with a pH of 7.47, noted significant hypercalcemia with a corrected calcium of 16.4, BNP of 2291. Chest x-ray shows persistent diffuse interstitial pneumonia, CT head is unremarkable. I suspect hypercalcemia is contributing to his mental status change so will hydrate and give Lasix as well to avoid fluid overload. He may require bisphosphonates as I suspect hypercalcemia is secondary to underlying malignancy but will discuss this further with oncology. Patient is being admitted for further management of A. fib with RVR, treatment of pneumonia and hypercalcemia. Due to need for titratable drip he will be admitted to ICU for close monitoring at this time. He is to remain n.p.o. until more consistently awake and alert. To avoid use of sedating medications will request one-on-one monitoring; Ativan had been given due to patient being quite confused and difficult to redirect, wandering. Review of Systems General: Reports: other (obtained from at bedside due to somnolence) Const: Reports: change in appetite (decreased appetite) and fatigue; Denies: fever or chills ENMT: Reports: dry mouth Card: Reports: swelling of feet/ankles; Denies: chest pain Resp: Reports: shortness of breath and productive cough (thick yellow/white sputum) Skin/Breast: Reports: rash (on arms, chest) Neuro: Reports: weakness in extremities, lack of coordination, difficulty walking and confusion; Denies: numbness in extremities Medications/Allergies Home Medications Medication Instructions Recorded Confirmed Last Taken Type ciprofloxacin HCl See Rx Instructions .ROUTE .COMPLEX 12/06/19 12/06/19 Unknown History lisinopril 20 mg PO DAILY 12/06/19 12/06/19 Unknown History morphine 15 mg PO Q4H PRN 12/06/19 12/06/19 12/06/19 History Allergies Allergy/AdvReac Type Severity Reaction Status Date / Time No Known Allergies Allergy Verified 12/04/19 10:38 PFSH Acute PFSH: Surgical History S/P cholecystectomy S/P colonoscopy 2017- REPEAT IN 10 YEARS S/P endoscopic carpal tunnel release S/P eye surgery S/P shoulder surgery Status post right knee replacement Family History Other Aneurysm Arthritis CAD (coronary artery disease) Diabetes Hypertension Social History Smoking and tobacco status: former smoker Quit status (tobacco): has quit using tobacco Year quit tobacco: 1999 - 2PPD x 30 Years Second hand smoke exposure: No Alcohol intake: former Year of sobriety/quit date alcohol: 1999 Former alcohol use details: HEAVY Household members: spouse Housing: House Marital status: service: Yes Current occupational status: retired History of recent travel: No Current gender identity: Male Vitals/I&O/Wt Last Vital Signs Temp 98.4 F 12/06/19 14:18 Pulse 96 12/06/19 14:18 Resp 24 H 12/06/19 14:18 BP 120/67 12/06/19 14:18 Pulse Ox 92 12/06/19 14:18 Weight last 48 hrs Weight 86.183 kg Physical Exam Const: COMMON NORMALS: no apparent distress GENERAL APPEARANCE: frail appearing ORIENTATION/CONSCIOUSNESS: Yes other (unable to arouse, received Ativan 2 mg just prior to my evaluation) HENMT: COMMON NORMALS: normocephalic and head/scalp atraumatic HEAD & SCALP: normocephalic and atraumatic MOUTH: moist mucous membranes abnormal Details: parched Eye: COMMON NORMALS: PERRL and conjunctivae normal CONJUNCTIVA: Yes conjunctivae normal PUPIL: Yes PERRL Neck/C-Spine: GENERAL: Yes normal visual inspection and Yes trachea midline Resp: COMMON NORMALS: normal respiratory effort, no retractions and no use of accessory muscles EFFORT & INSPECTION: Yes symmetric chest movement and No tachypneic AUSCULTATION: diminished lung sounds OTHER: -on 10 L oxy-mask Cardio: COMMON NORMALS: S1 normal heart sound, S2 normal heart sound and no murmurs RATE: tachycardic RHYTHM: abnormal rhythm irregularly irregular HEART SOUNDS: S1 normal and S2 normal GI: COMMON NORMALS: normal to inspection, nondistended, normoactive bowel sounds and soft to palpation PALPATION: Yes soft Back/Pelvis: COMMON NORMALS: thoracic and lumbar spine normal to inspection Extremity: COMMON NORMALS: normal to inspection and no clubbing, cyanosis or edema; negative for no pedal edema Neuro: OTHER: -unable to assess due to somnolence Psych: OTHER: -unable to assess due to somnolence Skin: COMMON NORMALS: no jaundice, no petechiae and no mottling GENERAL SKIN EXAM: other (erythematous maculopapular rash on face, anterior chest, bilateral arms) Sepsis: Is patient septic: Yes Focused sepsis exam performed: Yes Date exam was performed: 12/06/19 Time exam was performed: 18:00 Data : 12/06/19 14:49 12/06/19 14:49 Micro: Microbiology 12/06/19 14:51 Blood Culture - Preliminary Blood SPECIMEN COLLECTED 12/06/19 14:49 Blood Culture - Preliminary Blood SPECIMEN COLLECTED A&P Assessment and plan (1) Pneumonia: -Presented with symptoms of productive cough, altered mental status, shortness of breath; found to be hypoxic today -Evidence of diffuse interstitial pneumonia on chest x-ray -Associated sepsis as evidenced by leukocytosis, hypoxia, tachypnea, tachycardia (atrial fibrillation) and underlying immunocompromised state. Trend WBC -Received Zosyn in ER, continue Zosyn and add vancomycin; had been treated recently with Levaquin -Lactic acid 2.0; noted hypoxia on ABG, done on 5 L nasal cannula -Close monitoring of respiratory status -Supplemental oxygen as needed, patient is not oxygen dependent at baseline -Follow-up blood culture -Screen for influenza, bacterial antigens and Legionella; patient had been treated for influenza A at the end of October Status: Acute Qualifiers: Pneumonia type: due to unspecified organism Laterality: bilateral Lung location: unspecified part of lung Qualified Code(s): J18.9 - Pneumonia, unspecified organism Code(s): J18.9 - Pneumonia, unspecified organism (2) Squamous cell lung cancer: -Has a 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 Shannon, plan per last visit was to consider initiation of immunotherapy the patient has had multiple visits to the hospital and clinically has not been doing well Status: Acute Qualifiers: Laterality: right Qualified Code(s): C34.91 - Malignant neoplasm of unspecified part of right bronchus or lung Code(s): C34.90 - Malignant neoplasm of unspecified part of unspecified bronchus or lung (3) Altered mental status: -Patient very difficult to arouse during my evaluation in the ER, had just received 2 mg dose of Ativan -Has had altered mental status by his since yesterday, very difficult to redirect, prone to wandering and very high fall risk -Fall precautions -We will request one-on-one monitoring to avoid consistent medication use -Suspect altered mental status is likely due to acute infection as noted above as well as noted hypercalcemia -Redirect as needed -CT head unremarkable, ammonia wnl (24) Status: Acute Qualifiers: Altered mental status type: somnolence Qualified Code(s): R40.0 - Somnolence Code(s): R41.82 - Altered mental status, unspecified (4) Atrial fibrillation: -Patient has known atrial fibrillation with prior episodes of RVR requiring hospitalization, most recently earlier this month during which time he was treated with Cardizem drip. Had been prescribed digoxin and metoprolol though is unsure how compliant he has been with his medication regimen -Currently requiring Cardizem drip, wean off as tolerated -Resume digoxin and metoprolol once p.o. appropriate -Has been on anticoagulation with Eliquis, continue this -Telemetry monitoring, monitoring of vital signs Status: Acute Qualifiers: Atrial fibrillation type: unspecified chronic Qualified Code(s): I48.20 - Chronic atrial fibrillation, unspecified Code(s): I48.91 - Unspecified atrial fibrillation (5) Hypercalcemia: -acute on chronic; though has not been as high in the past (corrected-16.4); likely contributing to altered mental status -could be related to underlying malignancy particularly given diffuse osseous lesions -IVF hydration, Lasix to avoid fluid overload -continued monitoring of calcium -check ionized calcium, PTH, PTHrP -may need bisphosphonates if persistent/symptomatic; will discuss with oncology Status: Acute Code(s): E83.52 - Hypercalcemia Additional A&P Information -BPH, resume finasteride, tamsulosin -HTN -COPD, former smoker; not oxygen dependent at baseline -RA, on chronic steroids; hold prednisone for now -Chronic HFpEF; Echo done earlier this month, EF=68%, no RWMA, trace to mild MR, trace ME, mild LVH -NPO for now, cardiac diet once more consistently awake -GI ppx with Famotidine -DVT ppx not needed as on Eliquis -Dispo: came from home -Code status: DNR/DNI; discussed with at bedside -guarded prognosis -ICU admission for closer monitoring, Cardizem drip Attestations Medical Necessity Statement*: Giuseppe Grimaldo's hospital stay will require greater than 2 midnights for management of bilateral pneumonia with associated sepsis, altered mental status, hypercalcemia, A. fib with RVR requiring Cardizem drip. Time Spent in Patient Care: Greater than 35 minutes (>than 50% of time spent in counselling and/or direct pt care on unit). Coding Level of Care Code Acute Quality Control Microbiologist for Chg Fwd Diagnoses Pneumonia J18.9 Pneumonia type: due to unspecified organism Laterality: bilateral Lung location: unspecified part of lung Squamous cell lung cancer C34.91 Laterality: right Altered mental status R40.0 Altered mental status type: somnolence Atrial fibrillation I48.20 Atrial fibrillation type: unspecified chronic Hypercalcemia E83.52 Sepsis Event Note Evaluation Current stage of sepsis: sepsis Focused Exam Vital Signs Temp Pulse Resp BP Pulse Ox 12/06/19 14:18 98.4 F 96 24 H 120/67 92 Date exam was performed: 12/06/19 Time exam was performed: 18:50 Problem List (1) Squamous cell lung cancer: Current Visit: No Status: Acute (2) Pneumonia: Current Visit: Yes Status: Acute (3) Altered mental status: Current Visit: Yes Status: Acute (4) Atrial fibrillation: Current Visit: No Status: Acute (5) Hypercalcemia: Current Visit: Yes Status: Acute
[2019-12-06] MEDS: sodium chloride 0.9% 1,000 ML 999 ML IV (19:33)
[2019-12-06] MEDS: vancomycin 1,000 MG in sodium chloride 0.9% 250 ML 250 MG IV (20:53)
[2019-12-06 21:06] LABS: Add Urine Microscopic? NO
[2019-12-06 21:17] LABS: Bilirubin Urine 1+ (NEGATIVE); Blood Urine Neg (Negative); Glucose Urine UA Norm (Normal); Ketones Urine 1+ (Negative); Leukocyte Esterase Urine Negative (Negative); Nitrate Urine Negative (Negative); Protein Urine Neg (Negative); Specific Gravity, Urine 1.025 (1.005-1.030); Urine Appearance Clear (CLEAR); Urine Color Yellow (Yellow); Urobilinogen Urine Norm (Negative); pH Urine 5 (5-7)
[2019-12-06] MEDS: piperacillin-tazobactam 3.375 GM in sodium chloride 0.9% (plus) 50 ML IV (23:30)
[2019-12-07] VITALS (17 sets, daily range): BP systolic 127–162; BP diastolic 68–118; PULSE 77–123; RESP 22–34; TEMP -13.6–36.7; O2SAT 91–94
[2019-12-07] MEDS: sodium chloride 0.9% 1,000 ML 75 ML IV ×2 (02:09→14:52)
[2019-12-07 04:07] LABS: Ionized Calcium 1.8 mmol/L (1.1-1.4)
[2019-12-07 04:41] LABS: Basophils % 0.3 %; Eosinophils % 0.2 %; Hematocrit 45.8 % (42.0-52.0); Hemoglobin 14.7 g/dL (11.7-16.6); Lymphocytes # 0.4 10^3/uL (0.8-4.8); Lymphocytes % 3.4 %; Mean Corpuscular HGB Conc 32.1 g/dL (30.0-36.0); Mean Corpuscular Hemoglobin 28.2 pg (28.0-34.0); Mean Corpuscular Volume 87.9 fL (80-94); Mean Platelet Volume 11.5 fL (7.4-10.4); Monocytes # 0.9 10^3/uL (0.2-0.9); Monocytes % 9.1 %; Neutrophils # 8.7 10^3/uL (1.8-7.7); Neutrophils % 85.5 %; Nucleated Red Blood Cells % 0 %; Platelet Count 107 10^3/cmm (130-400); Red Blood Count 5.21 10^6/uL (4.1-5.3); Red Cell Distribution Width 14.3 % (12.1-15.1); White Blood Count 10.2 10^3/uL (4.0-10.0)
[2019-12-07 04:59] LABS: Alanine Aminotransferase 15 U/L (0-41); Albumin Level 2.4 g/dL (3.5-5.2); Alkaline Phosphatase 119 IU/L (40-130); Anion Gap 15.1 (5-19); Aspartate Amino Transferase 70 U/L (0-40); Blood Urea Nitrogen 29 mg/dL (8-23); Carbon Dioxide 29 mmol/L (22-29); Chloride 105 mmol/L (98-107); Globulin 3.8 g/dL (1.3-4.6); Glucose 120 mg/dL (65-115); Osmolality Calculated 298 mOsm/kg (285-295); Potassium 4.1 mmol/L (3.5-5.1); Sodium 145 mmol/L (136-145); Total Bilirubin 0.8 mg/dL (0.15-1.2); Total Protein 6.2 g/dL (6.6-8.7)
[2019-12-07 05:01] LABS: Calcium 14.4 mg/dL (8.5-10.5)
[2019-12-07 05:32] LABS: Calcium 14.3 mg/dL (8.5-10.5)
[2019-12-07 06:56] LABS: Influenza A by IFA Negative (Negative); Influenza B by IFA Negative (Negative)
--- NOTE | 2019-12-07 08:20 | PC.NURSE ---
Pt converted to sinus rhythm. Monitor ECG strip placed in chart.
[2019-12-07] MEDS: piperacillin-tazobactam 3.375 GM in sodium chloride 0.9% (plus) 50 ML IV ×2 (08:27→16:14)
--- NOTE | 2019-12-07 08:30 | PC.NURSE ---
Pranav Monge, janitorial services supervisor: From administration, per KYLEE Rowe , son and daughter (Reggie Qureshi and Shahnaz) all have prior permission from administration to visit pt as they need to while [facility] under visitor restriction.
[2019-12-07] MEDS: vancomycin 1,000 MG in sodium chloride 0.9% 250 ML 250 MG IV ×2 (09:06→20:27)
[2019-12-07] MEDS: FUROsemide 10 mg/mL SDV 4mL 40 MG IVP (10:36)
--- NOTE | 2019-12-07 10:45 | PM.PN ---
Subjective Subjective: Interval history: AM labs noted, slight improvement in hypercalcemia, corrected calcium is 15.7. Had 1400 mL urine output overnight, has Oliver catheter. Converted to NSR this AM, weaned off cardizem drip. Discussed case with Dr. Shannon, recommended Pamidronate IV. Remains on 10 L oxy-mask. Patient seen and examined with and daughter at bedside, resting in bed, intermittently restless, slightly more responsive to tactile and verbal stimulation today, had had very good urine output. Seen again in the afternoon, son at bedside updated. Case discussed briefly with Dr. Ruiz, will add calcitonin. Medications: Reviewed: Yes Medication Review Details: Active Medications Generic Name Dose Route Start Last Admin Trade Name Freq PRN Reason Stop Dose Admin Acetaminophen 650 mg 12/06/19 19:20 Tylenol PO Q6H PRN Mild/Mod Pain Or Temp >/= 101 Apixaban 5 mg 12/07/19 09:00 12/07/19 10:35 Eliquis PO Not Given BID GABBIE Ascorbic Acid 500 mg 12/07/19 09:00 12/07/19 10:35 Vitamin C PO Not Given DAILY GABBIE Digoxin 250 mcg 12/07/19 09:00 12/07/19 10:37 Lanoxin PO Not Given DAILY GABBIE Finasteride 5 mg 12/07/19 09:00 12/07/19 10:33 Proscar PO Not Given DAILY GABBIE Fluconazole 200 mg 12/07/19 09:00 12/07/19 10:32 Diflucan Tab PO Not Given DAILY GABBIE Furosemide 40 mg 12/07/19 09:00 12/07/19 10:36 Lasix IVP 40 mg DAILY GABBIE Administration Diltiazem HCl 125 mg/ Sodium 125 mls @ 0 mls/h r 12/06/19 19:20 12/07/19 09:06 Chloride IV 10 mg/hr .Q0M GABBIE 10 mls/hr Administration Protocol Per Protocol Piperacillin Sod/T azobactam 50 mls @ 12.5 mls /hr 12/07/19 00:00 12/07/19 08:27 Sod 3.375 gm/ So dium Chloride IV 12.5 mls/hr Q8H GABBIE Administration Protocol As Directed Sodium Chloride 1,000 mls @ 75 ml s/hr 12/06/19 19:20 12/07/19 02:09 Sodium Chloride 0.9% IV 75 mls/hr .[id number] GABBIE Administration Vancomycin HCl 1,0 00 mg/ 250 mls @ 250 mls /hr 12/07/19 09:00 12/07/19 10:10 Sodium Chloride IV Infused Q12H GABBIE Infusion Protocol As Directed Pamidronate Disodi um 90 mg/ 510 mls @ 127.5 m ls/hr 12/07/19 11:30 Sodium Chloride IV 12/07/19 15:29 ONCE ONE Lorazepam 1 mg 12/07/19 10:39 Ativan IVP Q8H PRN ANXIETY Metoprolol Tartrat e 12.5 mg 12/07/19 09:00 12/07/19 10:31 Lopressor PO Not Given BID [facility] Morphine Sulfate 15 mg 12/06/19 19:20 Msir PO Q4H PRN Pain Naloxone HCl 0.1 mg 12/06/19 19:20 Narcan IVP Q2M PRN OPIATERV Nitroglycerin 0.4 mg 12/06/19 19:20 Nitrostat SUBLINGUAL Q5M PRN Chest Pain Non-Formulary Medi cation 600 mg 12/07/19 09:00 12/07/19 10:34 Calcium Carbonat e [Calcium 600] PO Not Given DAILY [facility] Tamsulosin HCl 0.8 mg 12/06/19 21:00 12/06/19 20:33 Flomax PO Not Given BEDTIME [facility] Vitamin D 2,000 unit 12/07/19 09:00 12/07/19 10:34 Vitamin D3 PO Not Given DAILY [facility] No Known Allergies Allergy (Verified 12/04/19 10:38) Vitals/I&O/Wt Last Vital Signs Temp 98.4 F 12/06/19 14:18 Pulse 90 12/07/19 08:42 Resp 29 H 12/07/19 04:00 BP 162/85 12/07/19 04:00 Pulse Ox 94 12/07/19 08:42 12/06/19 12/07/19 12/07/19 22:59 06:59 14:59 Intake Total 250 / 250 94.75 / 344.75 321.75 / 321.75 Output Total 1400 / 1400 Balance 250 / 250 -1305.25 / -1055.25 321.75 / 321.75 Weight last 48 hrs Weight 86.183 kg Physical Exam Const: COMMON NORMALS: no apparent distress GENERAL APPEARANCE: frail appearing OTHER: -intermittently restless, easier to arouse to verbal and tactile stimulation HENMT: COMMON NORMALS: normocephalic and head/scalp atraumatic HEAD & SCALP: normocephalic and atraumatic MOUTH: moist mucous membranes abnormal Details: parched TEETH & GINGIVA: Yes edentulous Eye: COMMON NORMALS: PERRL and conjunctivae normal CONJUNCTIVA: Yes conjunctivae normal PUPIL: Yes PERRL Neck/C-Spine: GENERAL: Yes normal visual inspection and Yes trachea midline Resp: COMMON NORMALS: normal respiratory effort, no retractions and no use of accessory muscles EFFORT & INSPECTION: Yes symmetric chest movement and Yes tachypneic AUSCULTATION: diminished lung sounds bilateral OTHER: -on 10 L oxy-mask -scattered coarse breath sounds bilaterally Cardio: COMMON NORMALS: regular rate, regular rhythm, S1 normal heart sound, S2 normal heart sound and no murmurs RATE: regular rate RHYTHM: regular rhythm HEART SOUNDS: S1 normal and S2 normal GI: COMMON NORMALS: normal to inspection, nondistended, normoactive bowel sounds and soft to palpation PALPATION: Yes soft : BLADDER/KIDNEY EXAM: Yes catheter in place Catheter type (Male): urethral Back/Pelvis: COMMON NORMALS: thoracic and lumbar spine normal to inspection Extremity: COMMON NORMALS: normal to inspection and no clubbing, cyanosis or edema; negative for no pedal edema Neuro: OTHER: -unable to assess due to somnolence Psych: OTHER: -unable to assess due to somnolence Skin: COMMON NORMALS: no jaundice, no petechiae and no mottling GENERAL SKIN EXAM: other (erythematous maculopapular rash on face, anterior chest, bilateral arms) Urinary Catheter Management^: Oliver: Cath Placed During This Visit: yes Urethral Indwelling: Yes Reason for Continuing Indwelling Catheter: Accurate Measurement of Urinary Output in Critically Ill Patients Urinary Catheter Date of Insertion: 12/06/19 Urinary Catheter Time of Insertion: 20:00 Data : 12/07/19 03:55 12/07/19 03:55 Micro: Microbiology 12/06/19 21:00 Bacterial Antigens - Final Urine,Clean Catch 12/06/19 21:00 Legionella Urinary Antigen - Final Urine Catheterized 12/06/19 14:51 Blood Culture - Preliminary Blood SPECIMEN COLLECTED 12/06/19 14:49 Blood Culture - Preliminary Blood SPECIMEN COLLECTED A&P Assessment and plan (1) Pneumonia: -Presented with symptoms of productive cough, altered mental status, shortness of breath; found to be hypoxic today -Evidence of diffuse interstitial pneumonia on chest x-ray -Associated sepsis as evidenced by leukocytosis, hypoxia, tachypnea, tachycardia (atrial fibrillation) and underlying immunocompromised state. Trend WBC, stable so far -continue Zosyn and vancomycin; had been treated recently with Levaquin -Lactic acid 2.0; noted hypoxia on ABG, done on 5 L nasal cannula -Close monitoring of respiratory status -Supplemental oxygen as needed, patient is not oxygen dependent at baseline -Follow-up blood culture -negative for influenza, bacterial antigens and Legionella; patient had been treated for influenza A at the end of October Status: Acute Qualifiers: Laterality: bilateral Lung location: unspecified part of lung Pneumonia type: due to unspecified organism Qualified Code(s): J18.9 - Pneumonia, unspecified organism Code(s): J18.9 - Pneumonia, unspecified organism (2) Squamous cell lung cancer: -Has a 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 Shannon, plan per last visit was to consider initiation of immunotherapy the patient has had multiple visits to the hospital and clinically has not been doing well Status: Chronic Qualifiers: Laterality: right Qualified Code(s): C34.91 - Malignant neoplasm of unspecified part of right bronchus or lung Code(s): C34.90 - Malignant neoplasm of unspecified part of unspecified bronchus or lung (3) Altered mental status: -Patient very difficult to arouse during my evaluation in the ER, had just received 2 mg dose of Ativan -Has had altered mental status by his since yesterday (12/04), very difficult to redirect, prone to wandering and very high fall risk -Fall precautions -We will request one-on-one monitoring to avoid consistent medication use -Suspect altered mental status is likely due to acute infection as noted above as well as noted hypercalcemia -Redirect as needed -CT head unremarkable, ammonia wnl (24) Status: Acute Qualifiers: Altered mental status type: somnolence Qualified Code(s): R40.0 - Somnolence Code(s): R41.82 - Altered mental status, unspecified (4) Atrial fibrillation: -Patient has known atrial fibrillation with prior episodes of RVR requiring hospitalization, most recently earlier this month during which time he was treated with Cardizem drip. Had been prescribed digoxin and metoprolol though is unsure how compliant he has been with his medication regimen -Currently requiring Cardizem drip, wean off as tolerated. Has converted to NSR -on digoxin and metoprolol once p.o. appropriate -Has been on anticoagulation with Eliquis, continue this -Telemetry monitoring, monitoring of vital signs Status: Chronic Qualifiers: Atrial fibrillation type: unspecified chronic Qualified Code(s): I48.20 - Chronic atrial fibrillation, unspecified Code(s): I48.91 - Unspecified atrial fibrillation (5) Hypercalcemia: -acute on chronic; though has not been as high in the past (corrected-16.4); likely contributing to altered mental status -could be related to underlying malignancy particularly given diffuse osseous lesions -IVF hydration, Lasix to avoid fluid overload -continued monitoring of calcium -high ionized calcium, low PTH, pending PTHrP -needs bisphosphonates if persistent/symptomatic; diiscussed with Dr. Shannon; give Pamidronate -add calcitonin Status: Acute Code(s): E83.52 - Hypercalcemia Additional A&P Information -BPH: on finasteride, tamsulosin, has Oliver catheter in place -HTN -COPD, former smoker; not oxygen dependent at baseline -RA, on chronic steroids; hold prednisone for now -Chronic HFpEF; Echo done earlier this month, EF=68%, no RWMA, trace to mild MR, trace AR, mild LVH -NPO for now, cardiac diet once more consistently awake -GI ppx with Famotidine -DVT ppx not needed as on Eliquis -Dispo: came from home -Code status: DNR/DNI; discussed with at bedside -guarded prognosis -continue ICU care for close monitoring Attestations Medical Necessity Statement*: Patient requires hospitalization for continued management of pneumonia, hypercalcemia of malignancy, altered mental status. Time Spent in Patient Care: Greater than 35 minutes (>than 50% of time spent in counselling and/or direct pt care on unit). Critical Care Time: The high probability of a clinically significant, sudden or life threatening deterioration of the patient's [cardiovascular, respiratory, neuro] system(s) required my full and direct attention, intervention and personal management. The critical care time is as shown. This time is in addition to time spent performing any reported procedures but includes the following: [x] Data and vital sign review and interpretation [x] Patient assessment, examination and intervention [x] Documentation [x] Medication orders and management Critical Care Time (min): 30 Coding Level of Care Code Acute Traffic Survey Technician for [facility] Fwd Exam Comprehensive Diagnoses Pneumonia J18.9 Laterality: bilateral Lung location: unspecified part of lung Pneumonia type: due to unspecified organism Squamous cell lung cancer C34.91 Laterality: right Altered mental status R40.0 Altered mental status type: somnolence Atrial fibrillation I48.20 Atrial fibrillation type: unspecified chronic Hypercalcemia E83.52
[2019-12-07] MEDS: LORazepam 2 mg/mL INJ 1 mL 1 MG IVP ×2 (12:48→20:27)
[2019-12-07] MEDS: calcitonin,salmon 200 unit/mL SDV 2mL 100 UNIT SUBCUT (17:22)
--- NOTE | 2019-12-07 17:38 | PC.NURSE ---
Report faxed to [facility].. Further report given to JEANINE Clark.
--- NOTE | 2019-12-07 18:04 | PC.NURSE ---
Pt transferred to CSU via bed. Pt tolerated well. All belongings with pt. Reggie, son , at bedside. Further report and medications given to Amber.
[2019-12-07] MEDS: glycopyrrolate 0.2 mg/mL SDV 2 mL 0.1 MG IV (21:47)
[2019-12-08] VITALS (11 sets, daily range): BP systolic 143–158; BP diastolic 78–84; PULSE 95–108; RESP 20–40; TEMP 37.2–39.1; O2SAT 90–93
[2019-12-08] MEDS: piperacillin-tazobactam 3.375 GM in sodium chloride 0.9% (plus) 50 ML IV ×2 (00:16→07:27)
[2019-12-08] MEDS: acetaminophen 650 mg Supp PR ×2 (01:28→13:04)
--- NOTE | 2019-12-08 02:33 | PC.NURSE ---
At 0010, patient temperature 101.[address] Gonzales and received order for Tylenol MI which was administered as ordered. Patient currently has an axillary temperature of 100. 6. Will continue to monitor. 1:1 sitter at bedside.
[2019-12-08 04:14] LABS: Basophils % 0.3 %; Hematocrit 46.4 % (42.0-52.0); Hemoglobin 14.6 g/dL (11.7-16.6); Lymphocytes # 0.3 10^3/uL (0.8-4.8); Lymphocytes % 3.1 %; Mean Corpuscular HGB Conc 31.5 g/dL (30.0-36.0); Mean Corpuscular Hemoglobin 28.1 pg (28.0-34.0); Mean Corpuscular Volume 89.4 fL (80-94); Mean Platelet Volume 10.5 fL (7.4-10.4); Monocytes # 0.7 10^3/uL (0.2-0.9); Monocytes % 7.7 %; Neutrophils # 8.2 10^3/uL (1.8-7.7); Neutrophils % 87.7 %; Nucleated Red Blood Cells % 0 %; Platelet Count 109 10^3/cmm (130-400); Red Blood Count 5.19 10^6/uL (4.1-5.3); Red Cell Distribution Width 14.5 % (12.1-15.1); White Blood Count 9.4 10^3/uL (4.0-10.0)
[2019-12-08 04:32] LABS: Alanine Aminotransferase 14 U/L (0-41); Albumin Level 2.5 g/dL (3.5-5.2); Alkaline Phosphatase 127 IU/L (40-130); Anion Gap 11.4 (5-19); Aspartate Amino Transferase 73 U/L (0-40); Blood Urea Nitrogen 25 mg/dL (8-23); Calcium 12.3 mg/dL (8.5-10.5); Carbon Dioxide 38 mmol/L (22-29); Chloride 103 mmol/L (98-107); Globulin 4.1 g/dL (1.3-4.6); Glucose 135 mg/dL (65-115); Osmolality Calculated 307 mOsm/kg (285-295); Potassium 3.4 mmol/L (3.5-5.1); Sodium 149 mmol/L (136-145); Total Protein 6.6 g/dL (6.6-8.7)
[2019-12-08] MEDS: sodium chloride 0.9% 1,000 ML 75 ML IV (06:07)
--- NOTE | 2019-12-08 08:06 | PM.PN ---
Subjective Subjective: Interval history: Spiked a temp of 101.7 F around midnight, currently afebrile, quite tachypneic. Had 1100 mL urine output overnight, AM labs noted, corrected calcium-13.5, down from 15.7. Requiring 1:1 monitoring. Will repeat CXR; noted persistent interstitial infiltrates. Cardizem drip restarted due to noted atrial fibrillation with RVR, running at 15 mg/hr. Clinically decompensating, appears quite uncomfortable and restless, intermitently hypoxic, sounds congested. Had an extensive discussion with , daughter and son at bedside, anticipate continued decompensation and they have agreed to transition him to comfort care with hospice involvement; is extremely overwhelmed and they request inpatient hospice. Patient has not awakened or been alert, all meds are being administered MI or IV. Medications: Reviewed: Yes Medication Review Details: Active Medications Generic Name Dose Route Start Last Admin Trade Name Freq PRN Reason Stop Dose Admin Acetaminophen 650 mg 12/06/19 19:20 Tylenol PO Q6H PRN Mild/Mod Pain Or Temp >/= 101 Acetaminophen 650 mg 12/08/19 00:45 12/08/19 01:28 Tylenol MI 650 mg Q4H PRN Administration MILD PAIN OR INCR EASE TEMP Apixaban 5 mg 12/07/19 09:00 12/07/19 16:54 Eliquis PO Not Given BID GABBIE Ascorbic Acid 500 mg 12/07/19 09:00 12/07/19 10:35 Vitamin C PO Not Given DAILY GABBIE Calcitonin [place] 100 unit 12/07/19 18:00 12/07/19 17:22 Miacalcin SUBCUT 100 unit BID GABBIE Administration Digoxin 250 mcg 12/07/19 09:00 12/07/19 10:37 Lanoxin PO Not Given DAILY GABBIE Finasteride 5 mg 12/07/19 09:00 12/07/19 10:33 Proscar PO Not Given DAILY GABBIE Fluconazole 200 mg 12/07/19 09:00 12/07/19 10:32 Diflucan Tab PO Not Given DAILY GABBIE Furosemide 40 mg 12/07/19 09:00 12/07/19 10:36 Lasix IVP 40 mg DAILY GABBIE Administration Glycopyrrolate 0.1 mg 12/07/19 20:55 12/07/19 21:47 Robinol IV 0.1 mg Q4H PRN Administration SECRETIONS Diltiazem HCl 125 mg/ Sodium 125 mls @ 0 mls/h r 12/06/19 19:20 12/07/19 21:36 Chloride IV 5 mg/hr .Q0M GABBIE 5 mls/hr Administration Protocol Per Protocol Piperacillin Sod/T azobactam 50 mls @ 12.5 mls /hr 12/07/19 00:00 12/08/19 07:27 Sod 3.375 gm/ So dium Chloride IV 12.5 mls/hr Q8H GABBIE Administration Protocol As Directed Sodium Chloride 1,000 mls @ 75 ml s/hr 12/06/19 19:20 12/08/19 06:07 Sodium Chloride 0.9% IV 75 mls/hr .[id number] GABBIE Administration Vancomycin HCl 1,0 00 mg/ 250 mls @ 250 mls /hr 12/07/19 09:00 12/07/19 22:49 Sodium Chloride IV Infused Q12H GABBIE Infusion Protocol As Directed Lorazepam 1 mg 12/07/19 10:39 12/07/19 20:27 Ativan IVP 1 mg Q8H PRN Administration ANXIETY Metoprolol Tartrat e 12.5 mg 12/07/19 09:00 12/07/19 16:55 Lopressor PO Not Given BID [facility] Morphine Sulfate 15 mg 12/06/19 19:20 Msir PO Q4H PRN Pain Morphine Sulfate 2 mg 12/07/19 11:38 Morphine IVP Q4H PRN SEVERE PAIN Naloxone HCl 0.1 mg 12/06/19 19:20 Narcan IVP Q2M PRN OPIATERV Nitroglycerin 0.4 mg 12/06/19 19:20 Nitrostat SUBLINGUAL Q5M PRN Chest Pain Non-Formulary Medi cation 600 mg 12/07/19 09:00 12/07/19 10:34 Calcium Carbonat e [Calcium 600] PO Not Given DAILY [facility] Tamsulosin HCl 0.8 mg 12/06/19 21:00 12/07/19 19:35 Flomax PO Not Given BEDTIME [facility] Vitamin D 2,000 unit 12/07/19 09:00 12/07/19 10:34 Vitamin D3 PO Not Given DAILY [facility] No Known Allergies Allergy (Verified 12/04/19 10:38) Vitals/I&O/Wt Last Vital Signs Temp 98.9 F 12/08/19 04:19 Pulse 95 12/08/19 07:31 Resp 36 H 12/08/19 07:31 BP 152/79 12/08/19 07:31 Pulse Ox 92 12/08/19 07:31 12/07/19 12/08/19 12/08/19 22:59 06:59 14:59 Intake Total 408.834 / 9598.194 4693 / 2784.334 Output Total 1850 / 4250 1100 / 5350 Balance -1441.166 / -2515.666 -50 / -2565.666 Weight last 48 hrs Weight 83.416 kg Weight 86.183 kg Physical Exam Const: COMMON NORMALS: no apparent distress GENERAL APPEARANCE: frail appearing ORIENTATION/CONSCIOUSNESS: Yes other (unable to arouse, received Ativan 2 mg just prior to my evaluation) OTHER: -intermittently restless, very uncomfortable, unable to arouse HENMT: COMMON NORMALS: normocephalic and head/scalp atraumatic HEAD & SCALP: normocephalic and atraumatic MOUTH: moist mucous membranes abnormal Details: parched TEETH & GINGIVA: Yes edentulous Eye: COMMON NORMALS: PERRL and conjunctivae normal CONJUNCTIVA: Yes conjunctivae normal PUPIL: Yes PERRL Neck/C-Spine: GENERAL: Yes normal visual inspection and Yes trachea midline Resp: COMMON NORMALS: normal respiratory effort, no retractions and no use of accessory muscles EFFORT & INSPECTION: Yes symmetric chest movement and Yes tachypneic AUSCULTATION: crackles, rhonchi and diminished lung sounds bilateral OTHER: -on 10 L oxy-mask with intermittent hypoxia -scattered coarse breath sounds bilaterally Cardio: COMMON NORMALS: S1 normal heart sound, S2 normal heart sound and no murmurs RATE: tachycardic RHYTHM: abnormal rhythm irregularly irregular HEART SOUNDS: S1 normal and S2 normal GI: COMMON NORMALS: normal to inspection, nondistended, normoactive bowel sounds and soft to palpation PALPATION: Yes soft : BLADDER/KIDNEY EXAM: Yes catheter in place Back/Pelvis: COMMON NORMALS: thoracic and lumbar spine normal to inspection Extremity: COMMON NORMALS: normal to inspection and no clubbing, cyanosis or edema; negative for no pedal edema Neuro: OTHER: -unable to assess due to somnolence Psych: OTHER: -unable to assess due to somnolence Skin: COMMON NORMALS: no jaundice, no petechiae and no mottling GENERAL SKIN EXAM: other (erythematous maculopapular rash on face, anterior chest, bilateral arms) Urinary Catheter Management^: Oliver: Cath Placed During This Visit: yes Urethral Indwelling: Yes Reason for Continuing Indwelling Catheter: Other Urinary Catheter Date of Insertion: 12/06/19 Urinary Catheter Time of Insertion: 20:00 Data : 12/08/19 03:42 12/08/19 03:42 Micro: Microbiology 12/06/19 14:51 Blood Culture - Preliminary Blood NEGATIVE TO DATE 12/06/19 14:49 Blood Culture - Preliminary Blood NEGATIVE TO DATE 12/06/19 21:00 Bacterial Antigens - Final Urine,Clean Catch 12/06/19 21:00 Legionella Urinary Antigen - Final Urine Catheterized A&P Assessment and plan (1) Hypercalcemia: -acute on chronic; though has not been as high in the past (corrected-16.4); likely contributing to altered mental status -could be related to underlying malignancy particularly given diffuse osseous lesions -IVF hydration, Lasix to avoid fluid overload -continued monitoring of calcium -high ionized calcium, low PTH, pending PTHrP -needs bisphosphonates if persistent/symptomatic; diiscussed with Dr. Shannon; given Pamidronate (12/06) -added calcitonin Status: Acute Code(s): E83.52 - Hypercalcemia (2) Altered mental status: -Patient very difficult to arouse during my evaluation in the ER, had just received 2 mg dose of Ativan -Has had altered mental status by his since 12/04, very difficult to redirect, prone to wandering and very high fall risk -Fall precautions -one-on-one monitoring to avoid consistent medication use, given fall risk -Suspect altered mental status is likely due to acute infection as noted above as well as noted hypercalcemia -Redirect as needed -CT head unremarkable, ammonia wnl (24) Status: Acute Qualifiers: Altered mental status type: somnolence Qualified Code(s): R40.0 - Somnolence Code(s): R41.82 - Altered mental status, unspecified (3) Pneumonia: -Presented with symptoms of productive cough, altered mental status, shortness of breath; found to be hypoxic today -Evidence of diffuse interstitial pneumonia on chest x-ray; repeat CXR to monitor progression given tachypnea, fever -Associated sepsis as evidenced by leukocytosis, hypoxia, tachypnea, tachycardia (atrial fibrillation) and underlying immunocompromised state. WBC wnl -continue Zosyn and vancomycin; had been treated recently with Levaquin -Lactic acid 2.0; noted hypoxia on ABG, done on 5 L nasal cannula -Close monitoring of respiratory status -Supplemental oxygen as needed, patient is not oxygen dependent at baseline -blood culture: prelim negative -negative for influenza, bacterial antigens and Legionella; patient had been treated for influenza A at the end of October Status: Acute Qualifiers: Laterality: bilateral Lung location: unspecified part of lung Pneumonia type: due to unspecified organism Qualified Code(s): J18.9 - Pneumonia, unspecified organism Code(s): J18.9 - Pneumonia, unspecified organism (4) Squamous cell lung cancer: -Has a 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 Shannon, plan per last visit was to consider initiation of immunotherapy the patient has had multiple visits to the hospital and clinically has not been doing well Status: Chronic Qualifiers: Laterality: right Qualified Code(s): C34.91 - Malignant neoplasm of unspecified part of right bronchus or lung Code(s): C34.90 - Malignant neoplasm of unspecified part of unspecified bronchus or lung (5) Atrial fibrillation: -Patient has known atrial fibrillation with prior episodes of RVR requiring hospitalization, most recently earlier this month during which time he was treated with Cardizem drip. Had been prescribed digoxin and metoprolol though is unsure how compliant he has been with his medication regimen -weaned off Cardizem drip, converted to NSR -on digoxin and metoprolol once p.o. appropriate -Has been on anticoagulation with Eliquis, continue this -Telemetry monitoring, monitoring of vital signs Status: Chronic Qualifiers: Atrial fibrillation type: unspecified chronic Qualified Code(s): I48.20 - Chronic atrial fibrillation, unspecified Code(s): I48.91 - Unspecified atrial fibrillation Additional A&P Information -BPH: on finasteride, tamsulosin, has Oliver catheter in place -HTN -COPD, former smoker; not oxygen dependent at baseline -RA, on chronic steroids; hold prednisone for now -Chronic HFpEF; Echo done earlier this month, EF=68%, no RWMA, trace to mild MR, trace MI, mild LVH -NPO for now, cardiac diet once more consistently awake -GI ppx with Famotidine -DVT ppx not needed as on Eliquis, unable to take PO meds so will cover with heparin for now -Dispo: came from home -Code status: DNR/DNI; discussed with at bedside -clinically decompensating, transitioned to comfort measures, inpatient hospice, transfer to floor (private room) Attestations Medical Necessity Statement*: Patient requires hospitalization for comfort measures, inpatient hospice secondary to clinical decompensation. Time Spent in Patient Care: Greater than 35 minutes (>than 50% of time spent in counselling and/or direct pt care on unit). Coding Level of Care Code Acute [employer] Developer for [employer] Fwd Exam Comprehensive Diagnoses Hypercalcemia E83.52 Altered mental status R40.0 Altered mental status type: somnolence Pneumonia J18.9 Laterality: bilateral Lung location: unspecified part of lung Pneumonia type: due to unspecified organism Squamous cell lung cancer C34.91 Laterality: right Atrial fibrillation I48.20 Atrial fibrillation type: unspecified chronic
--- NOTE | 2019-12-08 08:13 | XR_ITS ---
WS: [id number] XR chest 1V portable [id number] REASON FOR EXAM: tachypnea, fever, increased oxyegen requirement FINDINGS: Reticular pattern both lung castillo. Low-grade alveolar edema bilaterally. Comparison to December 06, 2019. The heart mediastinum were normal. The hilum and apices normal. XR/XR chest 1V portable [id number] IMPRESSION: Persistent interstitial disease. Low-grade pulmonary edema.
[2019-12-08 08:48] LABS: Vancomycin Trough 14.4 ug/mL (10-15)
[2019-12-08] MEDS: heparin 5,000 unit/mL INJ 1 mL 5000 UNIT SUBCUT (08:52)
[2019-12-08] MEDS: vancomycin 1,000 MG in sodium chloride 0.9% 250 ML 250 MG IV (08:53)
[2019-12-08] MEDS: FUROsemide 10 mg/mL SDV 4mL 40 MG IVP (08:55)
[2019-12-08] MEDS: calcitonin,salmon 200 unit/mL SDV 2mL 100 UNIT SUBCUT (08:58)
[2019-12-08] MEDS: morphine 4 mg/mL SDV 1 mL 2 MG IVP ×3 (14:17→21:45)
--- NOTE | 2019-12-08 14:45 | PC.CHAP ---
Pastoral Care Encounter/Spiritual Assessment Type of Contact [] Declined nursing services manager visit [] Patient/Family/Request visit [] Outpatient visit [] Follow-up visit [] Physician referral [] Code/Alert [] Routine visit [] Staff referral [x] Actively dying [] Patient sleeping [x] Family support [] [] Out of room [] Palliative care [] [] Receiving care in room [] Pre-surgical visit [] Trauma [] Long length of stay [] ICU visit [] Other: Relational/Emotional Strength [] Patient feels connected with others/family/visitors/staff [] Distress [] Loneliness/isolation [] Abandonment Spirituality of Patient [x] Person of Indira [] Attends Mu-Ism of their Indira [] Believes in Prayer [] Reads Bible or Congregation materials [] There are Spiritual issues to be addressed Break Off Worker Interventions [x] Prayer [x] Active listening [x] Non-anxious presence [x] Spiritual/emotional support [] Crisis/trauma care [x] Spiritual counseling [x] Bereavement support [] Provided bereavement packet [] Provided Bible/devotional materials [] Provided toy/stuffed animal, coloring book to patient or family member [] Provided Communion [] Anointing/Liberty [] Salvation [] Completed spiritual assessment [] Other: Impact on Illness or Injury [] Angry [] Fearful [] Anxious [] Often cries [] Exhaustion [] Unable to work [] Unable to attend moravian [] Unable to walk/stand [] Unable to read [] Unable to drive [] Unable to eat/drink [] Unable to sleep [] Unable to be with family [] Patient intubated [] Other: Summary Patient is actively dying, some family present. Break Off Worker offer a prayer of comfort for family. Time spent with patient 15 min
--- NOTE | 2019-12-08 15:45 | PC.NURSE ---
Report called to JEANINE Gant on med surg. Nurse verbalized understanding of information and did not have any further questions.
[2019-12-08] MEDS: LORazepam 2 mg/mL INJ 1 mL IVP (16:51)
[2019-12-08] MEDS: glycopyrrolate 0.2 mg/mL SDV 2 mL 0.1 MG IV (23:15)
[2019-12-09] MEDS: LORazepam 2 mg/mL INJ 1 mL IVP ×5 (00:39→17:13)
--- NOTE | 2019-12-09 08:56 | P.PN_ITS ---
Subjective Subjective: Interval history: Family at bedside, last dose of Ativan given at 0500 and Morphine at 2145. Had 550 mL urine output overnight, remains on 10 L oxy-mask, tachypneic. Increased morphine dose for comfort. Medications: Reviewed: Yes Medication Review Details: Active Medications Generic Name Dose Route Start Last Admin Trade Name Freq PRN Reason Stop Dose Admin Acetaminophen 650 mg 12/08/19 00:45 12/08/19 13:04 Tylenol CO 650 mg Q4H PRN Administration MILD PAIN OR INCR EASE TEMP Glycopyrrolate 0.1 mg 12/07/19 20:55 12/08/19 23:15 Robinol IV 0.1 mg Q4H PRN Administration SECRETIONS Lorazepam 2 mg 12/08/19 14:08 12/09/19 05:07 Ativan IVP 2 mg Q2H PRN Administration ANXIETY Morphine Sulfate 2 mg 12/08/19 14:08 12/08/19 21:45 Morphine IVP 2 mg Q1H PRN Administration severe pain or ai r hunger Naloxone HCl 0.1 mg 12/06/19 19:20 Narcan IVP Q2M PRN OPIATERV No Known Allergies Allergy (Verified 12/04/19 10:38) Vitals/I&O/Wt Last Vital Signs Temp 99.6 F 12/08/19 13:45 Pulse 97 12/08/19 15:38 Resp 20 H 12/08/19 21:45 BP 143/79 12/08/19 15:38 Pulse Ox 92 12/08/19 15:38 12/08/19 12/09/19 12/09/19 22:59 06:59 14:59 Output Total 1250 / 3200 550 / 3750 Balance -1250 / -2257.667 -550 / -2807.667 Weight last 48 hrs Weight 83.416 kg Physical Exam Const: GENERAL APPEARANCE: frail appearing OTHER: -intermittently restless, unable to arouse HENMT: COMMON NORMALS: normocephalic and head/scalp atraumatic HEAD & SCALP: normocephalic and atraumatic MOUTH: moist mucous membranes abnormal Details: parched TEETH & GINGIVA: Yes edentulous Eye: COMMON NORMALS: conjunctivae normal CONJUNCTIVA: Yes conjunctivae normal Neck/C-Spine: GENERAL: Yes normal visual inspection and Yes trachea midline Resp: COMMON NORMALS: normal respiratory effort, no retractions and no use of accessory muscles EFFORT & INSPECTION: Yes symmetric chest movement and Yes tachypneic AUSCULTATION: crackles, rhonchi and diminished lung sounds bilateral OTHER: -on 10 L oxy-mask with intermittent hypoxia -scattered coarse breath sounds bilaterally Cardio: COMMON NORMALS: S1 normal heart sound, S2 normal heart sound and no murmurs RATE: tachycardic RHYTHM: abnormal rhythm irregularly irregular HEART SOUNDS: S1 normal and S2 normal GI: COMMON NORMALS: normal to inspection, nondistended, normoactive bowel sounds and soft to palpation PALPATION: Yes soft : BLADDER/KIDNEY EXAM: Yes catheter in place Back/Pelvis: COMMON NORMALS: thoracic and lumbar spine normal to inspection Extremity: COMMON NORMALS: normal to inspection and no clubbing, cyanosis or edema; negative for no pedal edema Neuro: OTHER: -unable to assess due to decreased consciousness Psych: OTHER: -unable to assess due to decreased consciousness Skin: COMMON NORMALS: no jaundice, no petechiae and no mottling GENERAL SKIN EXAM: other (erythematous maculopapular rash on face, anterior chest, bila teral arms) OTHER: -excoriation on bilateral gluteal area Urinary Catheter Management^: Oliver: Cath Placed During This Visit: yes Urethral Indwelling: Yes Reason for Continuing Indwelling Catheter: Hospice/Comfort/Palliative Care Urinary Catheter Date of Insertion: 12/06/19 Urinary Catheter Time of Insertion: 20:00 Data : 12/08/19 03:42 12/08/19 03:42 A&P Assessment and plan (1) Hypercalcemia: Status: Acute Code(s): E83.52 - Hypercalcemia (2) Altered mental status: Status: Acute Qualifiers: Altered mental status type: somnolence Qualified Code(s): R40.0 - Somnolence Code(s): R41.82 - Altered mental status, unspecified (3) Pneumonia: Status: Acute Qualifiers: Laterality: bilateral Lung location: unspecified part of lung Pneumonia type: due to unspecified organism Qualified Code(s): J18.9 - Pneumonia, unspecified organism Code(s): J18.9 - Pneumonia, unspecified organism (4) Squamous cell lung cancer: Status: Chronic Qualifiers: Laterality: right Qualified Code(s): C34.91 - Malignant neoplasm of unspecified part of right bronchus or lung Code(s): C34.90 - Malignant neoplasm of unspecified part of unspecified bronchus or lung (5) Atrial fibrillation: Status: Inactive Qualifiers: Atrial fibrillation type: unspecified chronic Qualified Code(s): I48.20 - Chronic atrial fibrillation, unspecified Code(s): I48.91 - Unspecified atrial fibrillation Additional A&P Information -BPH: on finasteride, tamsulosin, has Oliver catheter in place -HTN -COPD, former smoker; not oxygen dependent at baseline -RA, on chronic steroids; hold prednisone for now -Chronic HFpEF; Echo done earlier this month, EF=68%, no RWMA, trace to mild MR, trace CO, mild LVH -NPO for now -Code status: DNR/DNI -clinically decompensating, transitioned to comfort measures, inpatient hospice, transferred to floor (private room) Attestations Medical Necessity Statement*: Patient requires hospitalization for continued inpatient hospice. Time Spent in Patient Care: Greater than 35 minutes (>than 50% of time spent in counselling and/or direct pt care on unit) . Coding Level of Care Code Acute Cake Maker for Chg Fwd Exam Comprehensive Diagnoses Hypercalcemia E83.52 Altered mental status R40.0 Altered mental status type: somnolence Pneumonia J18.9 Laterality: bilateral Lung location: unspecified part of lung Pneumonia type: due to unspecified organism Squamous cell lung cancer C34.91 Laterality: right Atrial fibrillation I48.20 Atrial fibrillation type: unspecified chronic
--- NOTE | 2019-12-09 11:51 | PC.SOCIAL ---
*Unable to give IM due to patient is on hospice in-house.
[2019-12-09 12:46] VITALS: RESP 22; O2SAT 98
[2019-12-09] MEDS: morphine 4 mg/mL SDV 1 mL 2 MG IVP (12:46)
[2019-12-09] MEDS: glycopyrrolate 0.2 mg/mL SDV 2 mL 0.1 MG IV (12:48)
[2019-12-09 15:15] VITALS: RESP 22; O2SAT 96
[2019-12-09] MEDS: morphine 4 mg/mL SDV 1 mL IVP ×4 (15:15→20:07)
[2019-12-09] MEDS: acetaminophen 650 mg Supp PR ×2 (16:49→20:04)
[2019-12-09 16:50] VITALS: RESP 22
[2019-12-09 18:00] VITALS: RESP 20
[2019-12-09 20:07] VITALS: RESP 16
--- NOTE | 2019-12-09 21:06 | PC.NURSE ---
Family in room stated that patient received Ativan at 1900 today. On the computer EMAR the medication showed it was last given around 1700. When looking at the record of removed medications on the Pyxis I can see the RN that gave me report pulled Ativan at 1850.
--- NOTE | 2019-12-09 22:57 | PC.NURSE ---
2 RNs confirmed patient had no respiratory or cardiac output. Patient at 2250.
--- NOTE | 2019-12-10 00:23 | PC.NURSE ---
MTS called and patient isn't a candidate for donation. [facility] contacted as well as [facility]. All paper filled out and patient prepared for home miller supervisor. home premium service representative arrived and signed body transfer form and patient released to there care.
--- NOTE | 2019-12-10 20:04 | PM.DDS ---
Discharge Providers DDS Date of Admission: 12/06/19 19:21 Date Summary Completed: 12/10/19 Attending Provider at Admission: Gladys Garcia MD Time of : 22:50 Attending Provider at Discharge: Gladys Garcia MD Primary Care Provider: Jerome Steinberg MD DS Diagnoses Hospital Diagnoses (1) Hypercalcemia: (2) Altered mental status: Qualifiers: Altered mental status type: somnolence Qualified Code(s): R40.0 - Somnolence (3) Pneumonia: Qualifiers: Pneumonia type: due to unspecified organism Laterality: bilateral Lung location: unspecified part of lung Qualified Code(s): J18.9 - Pneumonia, unspecified organism (4) Squamous cell lung cancer: Qualifiers: Laterality: right Qualified Code(s): C34.91 - Malignant neoplasm of unspecified part of right bronchus or lung (5) Atrial fibrillation: Qualifiers: Atrial fibrillation type: unspecified chronic Qualified Code(s): I48.20 - Chronic atrial fibrillation, unspecified Reason for Visit Reason for Visit: Reason For Visit: Generalized weakness, confusion, lethargy Summary Date and Time of : Date of : 12/09/19 Time of : 22:50 Summary: Summary: Patient was admitted to ICU secondary to noted altered mental status, significant hypercalcemia, bilateral pneumonia requiring close monitoring. He was also found to have atrial fibrillation with RVR requiring a Cardizem drip. 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 He was started on IV fluid hydration, Lasix and bisphosphonates as well as calcitonin for hypercalcemia as well as broad-spectrum IV antibiotics for pneumonia. I had discussions with Dr. Shannon and Dr. Ruiz and patient was closely monitored particularly in terms of his hemodynamic and respiratory status. Unfortunately even with antibiotic treatment as well as management of atrial fibrillation and hypercalcemia patient's mental status did not improve and in fact he clinically decompensated. Goals of care discussion was had with patient's family, specifically his , son and daughter. Patient already had a guarded prognosis on initial evaluation and given lack of improvement patient's family decided to transition him to hospice at which point patient was transitioned to the floor and placed on inpatient hospice status. He gradually decompensated until he secondary to cardiopulmonary failure on 12/08 at 2250. Family was present at bedside. Additional Data: Advance directives?: No Discharge Plan Discharge Patient Disposition: At Medical Facility Condition: Prescriptions: No Action tamsulosin 0.4 mg capsule 0.8 mg PO BEDTIME RF: 0 finasteride 5 mg tablet 5 mg PO DAILY RF: 0 hydrochlorothiazide 25 mg tablet 25 mg PO DAILY RF: 0 fluconazole [Diflucan] 200 mg tablet 200 mg PO DAILY Qty: 7 RF: 0 Symbicort 160-4.5 mcg/actuation HFA aerosol inhaler 2 puff INHALATION BID RF: 0 cyclobenzaprine 10 mg tablet 10 mg PO TID RF: 0 albuterol sulfate 2.5 mg /3 mL (0.083 %) Solution For Nebulization 2.5 mg INHALATION QID PRN (Reason: Shortness Of Breath) RF: 0 benzonatate 200 mg Capsule 200 mg PO TID PRN (Reason: Cough) RF: 0 calcium carbonate [Calcium 600] 600 mg calcium (1,500 mg) Tablet 600 mg PO DAILY RF: 0 ascorbic acid (vitamin C) [Vitamin C] 500 mg Tablet 500 mg PO DAILY RF: 0 nitroglycerin [Nitrostat] 0.4 mg Tablet, Sublingual 0.4 mg SUBLINGUAL Q5M PRN (Reason: Chest Pain) RF: 0 cholecalciferol (vitamin D3) [Vitamin D3] 2,000 unit Tablet 2,000 unit PO DAILY RF: 0 prednisone 10 mg tablet See Rx Instructions .ROUTE .COMPLEX Qty: 1,000 RF: 0 metoprolol tartrate 25 mg tablet 12.5 mg PO BID RF: 0 levofloxacin [Levaquin] 750 mg tablet 750 mg PO DAILY 2 Days Qty: 2 RF: 0 Eliquis 5 mg Tablet 5 mg PO BID RF: 0 fluticasone propionate [Flonase Allergy Relief] 50 mcg/actuation [place],Suspension 1 spray INTRANASAL DAILY RF: 0 Spiriva Respimat 2.5 mcg/actuation Mist 1 inh INHALATION DAILY RF: 0 losartan 100 mg Tablet 50 mg PO DAILY RF: 0 Hold Instructions: Resume on 12/13/19. digoxin 125 mcg (0.125 mg) Tablet 250 mcg PO DAILY Qty: 30 RF: 0 lisinopril 20 mg tablet 20 mg PO DAILY RF: 0 ciprofloxacin HCl 0.3 % drops See Rx Instructions .ROUTE .COMPLEX RF: 0 morphine 15 mg Tablet 15 mg PO Q4H PRN (Reason: Pain) RF: 0 Discharge Date/Time: 12/10/19 00:40 DS Attestations Time Spent in /Discharge Care*: less than 30 min Quality - AMI: AMI present?: No Quality - Stroke: CVA present?: No Symptom Onset Unknown: No Quality - VTE: VTE present?: No Deep Vein Thrombosis/Pulmonary Embolism Present on Admission: No Coding Level of Care Code Acute [employer] Member Other Ranks for [facility] Fwd Diagnoses Hypercalcemia E83.52 Altered mental status R40.0 Altered mental status type: somnolence Pneumonia J18.9 Pneumonia type: due to unspecified organism Laterality: bilateral Lung location: unspecified part of lung Squamous cell lung cancer C34.91 Laterality: right Atrial fibrillation I48.20 Atrial fibrillation type: unspecified chronic
[2019-12-12 19:00] LABS: PTH Related Peptide (Protein) 20 pg/mL (14-27)
== END 2019-12-10 00:40 | disposition expired | DRG 871 ==
LOC: ER 15:52 → ICU 18:41 → CSU 12-07 17:57 → MEDSURG 12-08 16:08
PROVIDERS: Admitting Provider Family Medicine; Emergency Provider Family Medicine; Family Provider Internal Medicine; PCP Internal Medicine; Visit Provider Family Medicine
DX: A41.9 Sepsis, unspecified organism (principal); J18.9 Pneumonia, unspecified organism; C34.91 Malignant neoplasm of unspecified part of right bronchus or lung; I48.20 Chronic atrial fibrillation, unspecified; I50.32 Chronic diastolic (congestive) heart failure; E83.52 Hypercalcemia; D69.6 Thrombocytopenia, unspecified; R09.02 Hypoxemia; J44.9 Chronic obstructive pulmonary disease, unspecified; N40.0 Benign prostatic hyperplasia without lower urinary tract symptoms; M06.9 Rheumatoid arthritis, unspecified; I11.0 Hypertensive heart disease with heart failure; Z51.5 Encounter for palliative care; Z66 Do not resuscitate; Z87.891 Personal history of nicotine dependence; Z79.52 Long term (current) use of systemic steroids; Z79.811 Long term (current) use of aromatase inhibitors; Z79.84 Long term (current) use of oral hypoglycemic drugs; Z79.2 Long term (current) use of antibiotics
CPT/HCPCS: 12345; 36415; 36600; 51702; 70470; 71045; 80053; 80202; 81003; 82140; 82310; 82330; 82542; 82803; 83605; 83690; 83735; 83880; 83970; 85025; 86403; 87040; 87449; 87804; 96372; 96374; 96375; 99283; G0378; J0630; J1644; J1940; J2060; J2270; J2430; J2543; J3370; J3490; J7030; J7040; J7050; Q9967